=== PATIENT | female | born 1975 | race Caucasian/White ===

== ENCOUNTER → 2019-08-13 13:01 | Outpatient (BNVA) | payer MEDICARE, MEDICAID, SELFPAY | PROVIDERS: Family Provider Nurse Practitioner; Visit Provider Nurse Practitioner | DX: I10 Essential (primary) hypertension (principal) | CPT/HCPCS: 80053; 84443; 84481; 85025 ==

== ENCOUNTER → 2019-09-09 16:31 | Outpatient (BNVA) | payer MEDICARE, MEDICAID, SELFPAY | PROVIDERS: Family Provider Nurse Practitioner; Visit Provider Nurse Practitioner | DX: R05 Cough (principal); R07.89 Other chest pain | CPT/HCPCS: 71046; 85025; 87804 ==

== ENCOUNTER 2019-12-10 05:11 | Emergency (ER) | payer MEDICARE, MEDICAID, SELFPAY ==
[2019-12-10 05:11] VITALS: BMI 11.6
[2019-12-10 05:17] VITALS: BP 120/74; PULSE 87; RESP 18; TEMP 36.7; O2SAT 97
--- NOTE | 2019-12-10 05:18 | W.ED.FALL ---
Documented by User: Hal Mukherjee MD 12/10/19 05:46 HPI - Fall General: Chief Complaint: Fall Stated Complaint: back pain post fall Time Seen by Provider: 12/10/19 05:15 Source: patient and EMS Mode of arrival: EMS Limitations: no limitations History of Present Illness: HPI Narrative: 44-year-old female who tripped and fell roughly 3 hours ago. She states she fell straight onto her back and has had lower back pain and thoracic back pain since the fall. She states the pain is sharp in nature is worsened throughout the night. She states it is much worse when she tries to ambulate. She states her pain is currently a 7 out of 10. She did receive fentanyl in route complaint: fall Onset (ago): hour(s) Fall from: standing Fall witnessed: no Place fall occurred: home Loss of consciousness: None Symptoms prior to fall: none Location of injury: back Associated symptoms-after fall: Denies abdominal pain, chest pain or headache(s) Review of Systems Const: Denies: fever(s), chills, body aches or change in appetite Eyes: Denies: blurry vision or eye discomfort ENMT: Denies: throat pain or dental pain Card: Denies: chest pain Resp: Denies: dyspnea GI: Denies: abdominal pain, nausea, vomiting or diarrhea : Denies: dysuria Musc: Reports: back pain Skin/Breast: Denies: rash Neuro: Denies: headache(s) Psych: Denies: depression Raudel/Lymph: Denies: easy bruising All/Imm: Denies: urticaria PFSH ED PFSH: Medical History Alcohol dependence, daily use 1-2 beer daily Anorexia Anxiety and depression Chronic episodic atrial fibrillation Patient is not on oral anticoagulant because of the GI bleed. COPD (chronic obstructive pulmonary disease) Dyslipidemia Essential (primary) hypertension High risk medication use Non-ischemic cardiomyopathy Smoking addiction Underweight Vitamin D deficiency Surgical History History of colonoscopy 2017 Family History Mother Cancer Brother Heart disease Grandmother Diabetes Social History Smoking and tobacco status: current every day smoker Second hand smoke exposure: Yes Smoking risk assessment/counseling performed?: Yes Alcohol intake: current Alcohol intake frequency: 3 or more drinks per day Alcohol type: beer Desire information about alcohol rehabilitation?: No Counseling given: Yes Desire information about substance/drug rehabilitation?: No Counseling given: No Caregiver/support person: No Lives independently: Yes Marital status: Single Number of children: 0 Number of grandchildren: 0 service: No Current occupational status: unemployed Pets and animals: Yes Pets & animals: dog(s) History of recent travel: No Current gender identity: Female Physical Exam Const: COMMON NORMALS: no acute distress, patient oriented x3 and healthy appearing HENMT: COMMON NORMALS: normocephalic and atraumatic HEAD & SCALP: normocephalic and atraumatic Eye: COMMON NORMALS: Equal, round and reactive pupils present and EOMs intact bilaterally PUPIL: Yes Equal, round and reactive pupils present Neck/C-Spine: COMMON NORMALS: full ROM and supple Chest: COMMONS NORMALS: normal inspection of the chest and normal palpation of entire chest wall Resp: COMMON NORMALS: normal respiratory effort, No retractions, No use of accessory muscles and clear to auscultation bilaterally AUSCULTATION: clear to auscultation bilaterally Cardio: COMMON NORMALS: regular rate, regular rhythm and No murmurs present (Cardio) RATE: regular rate RHYTHM: regular rhythm GI: COMMON NORMALS: Normal to inspection, nondistended, normoactive bowel sounds present, Soft to palpation, non-tender and no masses PALPATION: Yes Soft to palpation Back/Pelvis: OTHER: Tender over thoracic and lumbar spine patient was able ambulate without problems Extremity: COMMON NORMALS: normal to inspection and full ROM Neuro: COMMON NORMALS: patient oriented x3, moves all extremities and no focal motor deficits Psych: COMMON NORMALS: mental status grossly normal, Normal thought process present and cooperative THOUGHT PROCESS: Normal thought process present Skin: COMMON NORMALS: no rashes or lesions noted and no wounds GENERAL SKIN EXAM: no rashes or lesions noted Course Vital Signs: Vital signs: Vital Signs Temperature 98.1 F 12/10/19 05:17 Pulse Rate 90 12/10/19 11:16 Respiratory Rate 18 12/10/19 06:56 Blood Pressure 140/107 12/10/19 11:16 Pulse Oximetry 94 12/10/19 11:16 MDM - Fall MDM Narrative: Medical decision making narrative: Nunu presents here with lumbar and thoracic pain from a fall. Patient is quite tender on exam. She has no neurologic findings and no numbness. Patient's care turned over to Dr. Ayala to follow CT scan of her lumbar and thoracic spine. She had no head injury and no other injuries with the fall. Discharge Plan Discharge Patient Disposition: Home, Self-Care Clinical Impression: Compression fracture of thoracic vertebra Qualifiers: Encounter type: initial encounter Thoracic vertebra fracture level: T12 Qualified Code(s): S22.080A - Wedge compression fracture of T11-T12 vertebra, initial encounter for closed fracture Condition: Stable Prescriptions: New hydrocodone-acetaminophen 5-325 mg tablet 1 tab PO Q6H PRN (Reason: pain) Qty: 20 RF: 0 No Action alendronate [Fosamax] 70 mg tablet 70 mg PO .weekly Qty: 4 RF: 2 aspirin 81 mg tablet,delayed release (DR/EC) 81 mg PO BID Qty: 30 RF: 2 atorvastatin [Lipitor] 10 mg tablet 10 mg PO DAILY Qty: 30 RF: 2 calcium carbonate-vitamin D3 [Os-Vitor 500 + D3] 500 mg(1,250mg) -200 unit tablet 1 tab PO BID Qty: 60 RF: 2 cyanocobalamin (vitamin B-12) [Vitamin B-12] 1,000 mcg tablet 1,000 mcg PO DAILY Qty: 30 RF: 2 famotidine [Pepcid] 20 mg tablet 20 mg PO BID Qty: 60 RF: 2 Flovent HFA 110 mcg/actuation HFA aerosol inhaler 2 puff INHALATION Q12H Qty: 12 RF: 2 folic acid 1 mg tablet 1 mg PO DAILY Qty: 30 RF: 2 liothyronine [Cytomel] 5 mcg tablet 10 mcg PO DAILY Qty: 60 RF: 2 lisinopril 2.5 mg tablet 2.5 mg PO DAILY Qty: 30 RF: 2 magnesium oxide 400 mg magnesium tablet 400 mg PO BID Qty: 60 RF: 2 cefuroxime axetil 500 mg tablet 500 mg PO BID Qty: 20 RF: 0 Robitussin Long-Acting 1-7.5 mg/5 mL liquid 5 ml PO .every 6 hours Qty: 118 RF: 0 albuterol sulfate 2.5 mg /3 mL (0.083 %) solution for nebulization 2.5 mg INHALATION Q6H PRN (Reason: shortness of breath or wheezing) Qty: 180 RF: 0 levalbuterol tartrate [Xopenex HFA] 45 mcg/actuation HFA aerosol inhaler 2 inh INHALATION Q6H PRN (Reason: shortness of breath or wheezing) Qty: 15 RF: 0 amiodarone 200 mg tablet 100 mg PO DAILY Qty: 45 RF: 3 venlafaxine [Effexor XR] 75 mg capsule,extended release 24hr 75 mg PO DAILY Qty: 30 RF: 0 carvedilol 3.125 mg tablet 3.125 mg PO BID Qty: 60 RF: 3 Referrals: Yudy Lozoya FNP-C [Family Provider] - Mitesh Marrero [Referring] - 7-10 days Discharge Diet: Usual diet Discharge Activity: Limit activity as instructed Patient Instructions: Vertebral Compression Fracture (ED) Activity Restrictions/Additional Instructions: Use the brace as instructed by physical therapy. Use the walker whenever you are up ambulating so that you do not fall. If you are unable to tolerate the pain or if you are having difficulty getting around please return to the ED to be admitted. Follow-up with Dr. Marrero in 1 to 2 weeks for further evaluation and treatment. 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 COPD (chronic obstructive pulmonary disease) Dyslipidemia Essential (primary) hypertension High risk medication use Non-ischemic cardiomyopathy Smoking addiction Underweight Vitamin D deficiency Surgical History History of colonoscopy 2016 Family History Mother Cancer Brother Heart disease Grandmother Diabetes Social History Smoking and tobacco status: current every day smoker Second hand smoke exposure: Yes Smoking risk assessment/counseling performed?: Yes Alcohol intake: current Alcohol intake frequency: 3 or more drinks per day Alcohol type: beer Desire information about alcohol rehabilitation?: No Counseling given: Yes Desire information about substance/drug rehabilitation?: No Counseling given: No Caregiver/support person: No Lives independently: Yes Marital status: Single Number of children: 0 Number of grandchildren: 0 service: No Current occupational status: unemployed Pets and animals: Yes Pets & animals: dog(s) History of recent travel: No Current gender identity: Female Course ED course: Assumed care of this patient at shift change. She has had a CT which shows a burst fracture with some displacement of a bone fragment in the thoracic spine. I reevaluated her and she is continuing to have pain in that area. She does not ever think she has been told that she had a compression fracture in her back before. The dose of morphine she got earlier she said did help but it had worn off and she requested more pain medicine. She is neurologically intact. She would like to be able to go home if possible. I am paging neurosurgery at [facility] for recommendations on management, whether she needs a brace or any further evaluation or intervention. Reevaluation(s): Reevaluation #1: I spoke with Dr. Marrero at [facility]. He was okay with her getting a TLSO brace here and going home as long as she can ambulate without significant pain. He was willing to admit her at [facility] if she wanted to be admitted or if we are not able to control her pain. Discussed this with the patient on several occasions and she preferred to go home but was willing to stay if necessary. We got her a TLSO brace as well as a walker due to her weakness and general instability. She was able to ambulate with a walker in the brace fairly well. I reassessed her prior to discharge and she still wanted to go home. Dr. Marrero said he would like to see her in the outpatient clinic for follow-up to discuss jail management. I gave her a prescription for some hydrocodone for home. She understands that if she cannot tolerate the pain at home she should come back. Vital Signs: Vital signs: Vital Signs Temperature 98.1 F 12/10/19 05:17 Pulse Rate 90 12/10/19 11:16 Respiratory Rate 18 12/10/19 06:56 Blood Pressure 140/107 12/10/19 11:16 Pulse Oximetry 94 12/10/19 11:16 Discharge Plan Discharge Patient Disposition: Home, Self-Care Clinical Impression: Compression fracture of thoracic vertebra Qualifiers: Encounter type: initial encounter Thoracic vertebra fracture level: T12 Qualified Code(s): S22.080A - Wedge compression fracture of T11-T12 vertebra, initial encounter for closed fracture Condition: Stable Prescriptions: New hydrocodone-acetaminophen 5-325 mg tablet 1 tab PO Q6H PRN (Reason: pain) Qty: 20 RF: 0 No Action alendronate [Fosamax] 70 mg tablet 70 mg PO .weekly Qty: 4 RF: 2 aspirin 81 mg tablet,delayed release (DR/EC) 81 mg PO BID Qty: 30 RF: 2 atorvastatin [Lipitor] 10 mg tablet 10 mg PO DAILY Qty: 30 RF: 2 calcium carbonate-vitamin D3 [Os-Vitor 500 + D3] 500 mg(1,250mg) -200 unit tablet 1 tab PO BID Qty: 60 RF: 2 cyanocobalamin (vitamin B-12) [Vitamin B-12] 1,000 mcg tablet 1,000 mcg PO DAILY Qty: 30 RF: 2 famotidine [Pepcid] 20 mg tablet 20 mg PO BID Qty: 60 RF: 2 Flovent HFA 110 mcg/actuation HFA aerosol inhaler 2 puff INHALATION Q12H Qty: 12 RF: 2 folic acid 1 mg tablet 1 mg PO DAILY Qty: 30 RF: 2 liothyronine [Cytomel] 5 mcg tablet 10 mcg PO DAILY Qty: 60 RF: 2 lisinopril 2.5 mg tablet 2.5 mg PO DAILY Qty: 30 RF: 2 magnesium oxide 400 mg magnesium tablet 400 mg PO BID Qty: 60 RF: 2 cefuroxime axetil 500 mg tablet 500 mg PO BID Qty: 20 RF: 0 Robitussin Long-Acting 1-7.5 mg/5 mL liquid 5 ml PO .every 6 hours Qty: 118 RF: 0 albuterol sulfate 2.5 mg /3 mL (0.083 %) solution for nebulization 2.5 mg INHALATION Q6H PRN (Reason: shortness of breath or wheezing) Qty: 180 RF: 0 levalbuterol tartrate [Xopenex HFA] 45 mcg/actuation HFA aerosol inhaler 2 inh INHALATION Q6H PRN (Reason: shortness of breath or wheezing) Qty: 15 RF: 0 amiodarone 200 mg tablet 100 mg PO DAILY Qty: 45 RF: 3 venlafaxine [Effexor XR] 75 mg capsule,extended release 24hr 75 mg PO DAILY Qty: 30 RF: 0 carvedilol 3.125 mg tablet 3.125 mg PO BID Qty: 60 RF: 3 Referrals: Yudy Lozoya, LAURO-C [Family Provider] - Mitesh Marrero [Referring] - 7-10 days Discharge Diet: Usual diet Discharge Activity: Limit activity as instructed Patient Instructions: Vertebral Compression Fracture (ED) Activity Restrictions/Additional Instructions: Use the brace as instructed by physical therapy. Use the walker whenever you are up ambulating so that you do not fall. If you are unable to tolerate the pain or if you are having difficulty getting around please return to the ED to be admitted. Follow-up with Dr. Marrero in 1 to 2 weeks for further evaluation and treatment. 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
--- NOTE | 2019-12-10 05:42 | CTR_ITS ---
PROCEDURE INFORMATION: Exam: CT Lumbar Spine Without Contrast Exam date and time: 12/10/2019 6:25 AM Age: 44 years old Clinical indication: Injury or trauma; Initial encounter; Blunt trauma (contusions or hematomas); Patient HX: Fall last night. C/O back pain TECHNIQUE: Imaging protocol: Computed tomography images of the lumbar spine without contrast. Radiation optimization: All CT scans at this facility use at least one of these dose optimization techniques: automated exposure control; mA and/or kV adjustment per patient size (includes targeted exams where dose is matched to clinical indication); or iterative reconstruction. COMPARISON: No relevant prior studies available. RADIATION DOSE METRICS: Total DLP: 719.56 mGy-cm FINDINGS: Vertebrae: No spondylolisthesis No pars defect. No fracture. Compression fracture T12. Displaced fragment superiorly of approximately 5-[address] thoracic spine. Discs/Spinal canal/Neural foramina: degenerative disc disease reflected as a decrease in disc space height and anterior endplate osteophytosis. Stomach and bowel: Question mildly thickened large bowel. Consider CT if indicated. Soft tissues: Unremarkable. CT/CT lumbar spine wo con* [id number] IMPRESSION: 1. Diffuse degenerative disc disease. No lumbar spine fracture. 2. Compression fracture T12. Displaced fragment superiorly of approximately 5-[address] thoracic spine. 3. Question mildly thickened large bowel. Consider CT if indicated. Radiation Dose CTDIVOL = (mGy): DLP = 719.56 (mGy-cm)
--- NOTE | 2019-12-10 05:42 | CTR_ITS ---
PROCEDURE INFORMATION: Exam: CT Thoracic Spine Without Contrast Exam date and time: 12/10/2019 5:43 AM Age: 44 years old Clinical indication: Injury or trauma; Initial encounter; Blunt trauma (contusions or hematomas); Patient HX: Fall last night. C/O severe back pain TECHNIQUE: Imaging protocol: Computed tomography images of the thoracic spine without contrast. Radiation optimization: All CT scans at this facility use at least one of these dose optimization techniques: automated exposure control; mA and/or kV adjustment per patient size (includes targeted exams where dose is matched to clinical indication); or iterative reconstruction. COMPARISON: No relevant prior studies available. RADIATION DOSE METRICS: Total DLP: 863.41 mGy-cm FINDINGS: Vertebrae: The alignment is normal. No subluxation-no perched or jumped facets. The facets are without acute process. Burst fracture involving T12 with retropulsed fragment of approximately 5-6 mm superiorly. Discs/Spinal canal/Neural foramina: Degenerative changes, mild, throughout much of the thoracic spine CT/CT thoracic spin wo con* [id number] IMPRESSION: Burst fracture involving T12 with retropulsed fragment of approximately 5-6 mm superiorly. Radiation Dose CTDIVOL = (mGy): DLP = 863.41 (mGy-cm)
[2019-12-10 06:15] VITALS: RESP 18
[2019-12-10] MEDS: morphine 4 mg/mL SDV 1 mL IVP ×2 (06:15→07:53)
[2019-12-10 06:56] VITALS: BP 128/78; PULSE 102; RESP 18; O2SAT 94
[2019-12-10 07:55] VITALS: BP 120/88; PULSE 97; O2SAT 98
--- NOTE | 2019-12-10 08:57 | PC.NURSE ---
physical therapy in room to walk pt with TLSO brace
[2019-12-10 10:03] VITALS: BP 130/86; PULSE 95; O2SAT 96
--- NOTE | 2019-12-10 10:03 | DCPLANNER ---
procurement services manager was asked to arrange for patient to get a walker to take home. procurement services manager spoke with patient about which DME company that she would like to use. Patient stated that she would like to use [facility], catalytic case operator had patient sign the Patient Choice letter. procurement services manager put that in the patients chart, for it to be scanned in. procurement services manager faxed the prescription to [facility], they will bring a walker to patient in the ED.
[2019-12-10] MEDS: HYDROcodone-acetaminophen 5-325 mg Tablet 1 TAB PO (10:46)
--- NOTE | 2019-12-10 11:00 | PC.NURSE ---
[facility] here to help Pt with walker instructions/education
[2019-12-10 11:16] VITALS: BP 140/107; PULSE 90; O2SAT 94
--- NOTE | 2019-12-10 11:16 | PC.NURSE ---
iv removed from left AC space. tip intact. pressure dressing applied.
== END 2019-12-10 11:16 | disposition home or self-care (01) ==
PROVIDERS: Emergency Provider Emergency Medicine; Family Provider Nurse Practitioner
DX: S22.080A Wedge compression fracture of T11-T12 vertebra, initial encounter for closed fracture (principal); W01.0XXA Fall on same level from slipping, tripping and stumbling without subsequent striking against object, initial encounter; Z79.82 Long term (current) use of aspirin; J44.9 Chronic obstructive pulmonary disease, unspecified; E78.5 Hyperlipidemia, unspecified; I10 Essential (primary) hypertension; F17.210 Nicotine dependence, cigarettes, uncomplicated
CPT/HCPCS: 12345; 72128; 72131; 97760; 99282; 99283; J2270; L0460

== ENCOUNTER → 2019-12-21 10:52 | Outpatient (BNVA) | payer MEDICARE, MEDICAID, SELFPAY | PROVIDERS: Family Provider Nurse Practitioner; Visit Provider Nurse Practitioner | DX: R63.6 Underweight (principal); I12.9 Hypertensive chronic kidney disease with stage 1 through stage 4 chronic kidney disease, or unspecified chronic kidney disease; N18.2 Chronic kidney disease, stage 2 (mild); S22.080A Wedge compression fracture of T11-T12 vertebra, initial encounter for closed fracture; R63.0 Anorexia; J44.9 Chronic obstructive pulmonary disease, unspecified; F41.9 Anxiety disorder, unspecified; F32.9 Major depressive disorder, single episode, unspecified; E55.9 Vitamin D deficiency, unspecified; E78.5 Hyperlipidemia, unspecified | CPT/HCPCS: 80061; 80069; 82044; 84439; 84443; 84481; 85025 ==

== ENCOUNTER 2020-01-11 12:23 | Outpatient (CLI) | payer MEDICARE, MEDICAID, SELFPAY ==
--- NOTE | 2020-01-11 15:15 | CT_ITS ---
WS: [id number] CT THORACIC SPINE TECHNIQUE: Noncontrast CT of the thoracic spine with coronal and sagittal reformatted images. CLINICAL INFORMATION: T12 fracture COMPARISON: None. DLP: 1012.[address] scans at [facility] use at least one of these dose optimization techniques: automat ed exposure control; mA and/or kV adjustment per patient size (includes targeted exams where dose is matched to clinical indication); or iterative reconstruction. FINDINGS: Again seen is the burst fracture involving the T12 vertebral body with posterior retropulsion measuri ng 5 to 6 mm. This results in mild central canal stenosis. Loss of approximately 50% vertebral body h eight slightly progressed. Compression fracture otherwise not significantly changed compared to previ ous. Fracture clefts are visualized in the mid and anterior endplates. Pedicles appear intact. Moderate thoracic kyphosis. No new compression fractures. A few Schmorl's nodes with chronic anterior wedging in the mid thoracic spine. No other significant interval changes. CT/CT thoracic spin wo con* [id number] IMPRESSION: 1. Slight progression of the T12 burst compression fracture with loss of appro ximately 50% vertebral body height. Slightly more compression today with fractu re clefts visualized in the mid and anterior aspects. 2. Mild retropulsion posterior superior cortex is unchanged with mild central canal stenosis. 3. Vacuum disc phenomenon T11-T12 and T12-L1. 4. Moderate thoracic kyphosis. 5. No other significant changes.
== END 2020-01-11 12:24 | disposition home or self-care (01) ==
LOC: RADWPI 12:26
PROVIDERS: Family Provider Nurse Practitioner; PCP Nurse Practitioner; Visit Provider Licensed Practical Nurse
DX: M54.9 Dorsalgia, unspecified (principal); S22.080A Wedge compression fracture of T11-T12 vertebra, initial encounter for closed fracture; S22.081A Stable burst fracture of T11-T12 vertebra, initial encounter for closed fracture; I48.20 Chronic atrial fibrillation, unspecified; I42.8 Other cardiomyopathies; F41.9 Anxiety disorder, unspecified; F32.9 Major depressive disorder, single episode, unspecified; X58.XXXA Exposure to other specified factors, initial encounter; F17.210 Nicotine dependence, cigarettes, uncomplicated; Z79.891 Long term (current) use of opiate analgesic
CPT/HCPCS: 72128; 99204

== ENCOUNTER 2020-02-08 09:50 | Outpatient (CLI) | payer MEDICARE, MEDICAID, SELFPAY ==
--- NOTE | 2020-02-08 10:15 | CT_ITS ---
WS: [id number] CT THORACIC SPINE TECHNIQUE: Noncontrast CT of the thoracic spine with coronal and sagittal reformatted images. CLINICAL INFORMATION: Thoracic fracture COMPARISON: CT 7 01/11/2020 and 12/10/2019 DLP: 1200.[address] scans at [facility] use at least one of these dose optimization techniques: automat ed exposure control; mA and/or kV adjustment per patient size (includes targeted exams where dose is matched to clinical indication); or iterative reconstruction. FINDINGS: Moderate thoracic kyphosis. Again seen is the burst fracture involving the T12 vertebral body with po sterior retropulsion measuring 5 to 6 mm. This results in mild central canal stenosis. Loss of approx imately 50% vertebral body height is unchanged. Compression fracture otherwise not significantly powers ged compared to previous. Fracture clefts are visualized in the mid and anterior endplates. Pedicles appear intact. No new comp ression fractures. A few Schmorl's nodes with chronic anterior wedging in the mid thoracic spine. CT/CT thoracic spin wo con* [id number] IMPRESSION: 1. Previously described T12 burst compression fracture with loss of approximat lobito 50% vertebral body height is unchanged. 2. Mild retropulsion posterior superior cortex is unchanged with mild central canal stenosis. 3. Vacuum disc phenomenon T11-T12 and T12-L1. 4. No other significant changes from previous.
== END 2020-02-08 09:51 | disposition home or self-care (01) ==
LOC: RADWPI 09:53
PROVIDERS: Family Provider Nurse Practitioner; PCP Nurse Practitioner; Visit Provider Licensed Practical Nurse
DX: M51.17 Intervertebral disc disorders with radiculopathy, lumbosacral region (principal); S22.081A Stable burst fracture of T11-T12 vertebra, initial encounter for closed fracture; S22.080A Wedge compression fracture of T11-T12 vertebra, initial encounter for closed fracture; X58.XXXA Exposure to other specified factors, initial encounter; M54.9 Dorsalgia, unspecified; F17.210 Nicotine dependence, cigarettes, uncomplicated; Z79.891 Long term (current) use of opiate analgesic
CPT/HCPCS: 72128; 99213

== ENCOUNTER → 2020-02-15 10:04 | Outpatient (BNVA) | payer MEDICARE, MEDICAID, SELFPAY | PROVIDERS: Family Provider Nurse Practitioner; PCP Nurse Practitioner; Visit Provider Licensed Practical Nurse | DX: S22.081A Stable burst fracture of T11-T12 vertebra, initial encounter for closed fracture (principal); X58.XXXA Exposure to other specified factors, initial encounter; F17.210 Nicotine dependence, cigarettes, uncomplicated | CPT/HCPCS: 99214 ==

== ENCOUNTER → 2020-03-09 09:23 | Outpatient (BNVA) | payer MEDICARE, MEDICAID, SELFPAY | PROVIDERS: Family Provider Nurse Practitioner; PCP Nurse Practitioner; Visit Provider Anesthesiology Pain Medicine | DX: M51.17 Intervertebral disc disorders with radiculopathy, lumbosacral region (principal); S22.081A Stable burst fracture of T11-T12 vertebra, initial encounter for closed fracture; X58.XXXA Exposure to other specified factors, initial encounter; M54.9 Dorsalgia, unspecified; I48.20 Chronic atrial fibrillation, unspecified; I42.8 Other cardiomyopathies; F41.9 Anxiety disorder, unspecified; F32.9 Major depressive disorder, single episode, unspecified; R63.0 Anorexia; R63.6 Underweight; J43.9 Emphysema, unspecified; F17.210 Nicotine dependence, cigarettes, uncomplicated | CPT/HCPCS: 99212; 99214 ==

== ENCOUNTER → 2020-04-05 10:22 | Outpatient (BNVA) | payer MEDICARE, MEDICAID, SELFPAY | PROVIDERS: Family Provider Nurse Practitioner; PCP Nurse Practitioner; Visit Provider Nurse Practitioner | DX: R63.0 Anorexia (principal); I10 Essential (primary) hypertension; K12.2 Cellulitis and abscess of mouth; F41.9 Anxiety disorder, unspecified; J43.9 Emphysema, unspecified; F32.9 Major depressive disorder, single episode, unspecified; K21.9 Gastro-esophageal reflux disease without esophagitis; E55.9 Vitamin D deficiency, unspecified; R79.89 Other specified abnormal findings of blood chemistry | CPT/HCPCS: 80053; 81000; 82306; 82607; 84443; 85025 ==

== ENCOUNTER 2020-04-10 11:00 | Outpatient (CLI) | payer MEDICARE, MEDICAID, SELFPAY ==
--- NOTE | 2020-04-10 11:15 | CT_ITS ---
WS: [id number] CT scan of the thoracic spine. Additional two-dimensional coronal and sagittal reconstruction was per formed. 04/10/2020 Clinical Data: Fracture Comparison: CT thoracic spine, 02/08/2020. DLP: 987.[address] scans at [facility] use at least one of these dose optimization techniques: automat ed exposure control; mA and/or kV adjustment per patient size (includes targeted exams where dose is matched to clinical indication); or iterative reconstruction. Findings: The compression fracture of T12 with loss of greater than 50% of the central vertebral body height at is again noted. The posterior superior portion shows retropulsion of 0.6 cm unchanged. No new compre ssion fractures are seen. Osteoporosis of all the vertebral bodies is present. There is degenerative disc change at T11-T12, T12-L1 and T8-T9. CT/CT thoracic spin wo con* [id number] Impression: 1. No change in T12 compression fracture. 2. 0.6 cm retropulsion of the posterior superior T12 cortex unchanged.
== END 2020-04-10 11:01 | disposition home or self-care (01) ==
LOC: RADWPI 11:04
PROVIDERS: Family Provider Nurse Practitioner; PCP Nurse Practitioner; Visit Provider Licensed Practical Nurse
DX: S22.081A Stable burst fracture of T11-T12 vertebra, initial encounter for closed fracture (principal); X58.XXXA Exposure to other specified factors, initial encounter
CPT/HCPCS: 72128

== ENCOUNTER → 2020-04-19 09:19 | Outpatient (BNVA) | payer MEDICARE, MEDICAID, SELFPAY | PROVIDERS: Family Provider Nurse Practitioner; PCP Nurse Practitioner; Visit Provider Licensed Practical Nurse | DX: S22.081A Stable burst fracture of T11-T12 vertebra, initial encounter for closed fracture (principal); X58.XXXA Exposure to other specified factors, initial encounter | CPT/HCPCS: 99213 ==

== ENCOUNTER → 2020-05-31 11:00 | Outpatient (BNVA) | payer MEDICARE, MEDICAID, SELFPAY | PROVIDERS: Family Provider Nurse Practitioner; PCP Nurse Practitioner; Visit Provider Nurse Practitioner | DX: Z20.828 Contact with and (suspected) exposure to other viral communicable diseases (principal); J43.9 Emphysema, unspecified | CPT/HCPCS: 85025; 87635 ==

== ENCOUNTER 2020-06-12 08:06 | Outpatient (CLI) | payer MEDICARE, MEDICAID, SELFPAY ==
--- NOTE | 2020-06-12 08:00 | CT_ITS ---
WS: [id number] CT THORACIC SPINE HISTORY: Thoracic fracture TECHNIQUE: Contiguous 2.5 mm axial images are reviewed to thoracic spine. Images are reformatted in s agittal and coronal planes. All CT scans at [facility] use at least one of these dose opt imization techniques: automated exposure control; mA and/or kV adjustment per patient size (includes targeted exams where dose is matched to clinical indication); or iterative reconstruction. DLP: 619.49 mGy.cm COMPARISON: 04/10/2020 Mild increase in thoracic kyphosis and osteopenia. Again noted is the 50% T12 burst fracture with ret ropulsion of the posterior superior endplate by 4.7 mm. No progression of a fracture or retropulsion. Degenerative air at the T11-12 and T12-L1 disc spaces. Single sclerosis throughout the T12 fracture. Mild to moderate degenerative disc disease and spondylosis throughout the thoracic spine. There is ve ry mild anterior wedging of T6, T7 and T8. No retropulsion. Retropulsion of the posterior T12 vertebral body causing mild compression upon the ventral thecal sac and encroachment into the lateral recesses. CT/CT thoracic spin wo con* [id number] IMPRESSION: 1. Stable T12 burst fracture with retropulsion of the posterior superior endpl ate by 4.7 mm. 2. Mild narrowing and encroachment upon the central canal at T12 with mild akanksha rowing of the lateral recesses also. No change or progression.
== END 2020-06-12 08:07 | disposition home or self-care (01) ==
LOC: CT 08:11
PROVIDERS: PCP Nurse Practitioner; Visit Provider Licensed Practical Nurse
DX: S22.081A Stable burst fracture of T11-T12 vertebra, initial encounter for closed fracture (principal); X58.XXXA Exposure to other specified factors, initial encounter
CPT/HCPCS: 72128

== ENCOUNTER → 2020-06-14 09:41 | Outpatient (BNVA) | payer MEDICARE, MEDICAID, SELFPAY | PROVIDERS: PCP Nurse Practitioner; Visit Provider Licensed Practical Nurse | DX: S22.081A Stable burst fracture of T11-T12 vertebra, initial encounter for closed fracture (principal); X58.XXXA Exposure to other specified factors, initial encounter; F17.210 Nicotine dependence, cigarettes, uncomplicated | CPT/HCPCS: 99213 ==

== ENCOUNTER 2020-08-16 13:24 | Emergency (ER) | payer MEDICARE, MEDICAID, SELFPAY ==
[2020-08-16] VITALS (10 sets, daily range): BP systolic 143–172; BP diastolic 102–115; PULSE 77–103; RESP 16–26; TEMP 36.6; O2SAT 96–100; BMI 11.1
--- NOTE | 2020-08-16 13:40 | ECG_ITS ---
[facility] Test Date: 2020-08-16 Pat Name: Nunu Mccoy Department: Room: Gender: Female Mechanical Assembler: : 1975 Requested By: Abhi José Order Number: [id number] Hassan MD: Alma Bueno M.D. Measurements Intervals [place] Rate: 83 P: 76 MN: 144 QRS: -54 QRSD: 116 T: 81 QT: 436 QTc: 513 Interpretive Statements SINUS RHYTHM MARKED LEFT AXIS DEVIATION [QRS AXIS < -30] MODERATE INTRAVENTRICULAR CONDUCTION DELAY [105+ ms QRS DURATION, 80+ ms Q/S IN V1/V2, NO Q AND 60+ ms R IN I/aVL/V5/V6] PROLONGED QT INTERVAL WARNING: DATA QUALITY MAY AFFECT INTERPRETATION Compared to ECG 11/09/2016 17:06:56 Left-axis deviation now present Intraventricular conduction delay now present Prolonged QT interval now present Left anterior fascicular block no longer present Myocardial infarct finding no longer present Electronically Signed On 08-16-2020 19:28:01 MEAT TEAM LEAD by Alma Bueno M.D. [email or web address]
--- NOTE | 2020-08-16 13:40 | XR_ITS ---
WS: [id number] Portable AP upright chest, 08/16/2020 Clinical Data: cp Comparison: PA and lateral chest, 09/09/2019. Findings: No nodules, masses or effusions are seen. The heart is normal. The pulmonary vascularity is not increased. No pneumonia or pneumothorax is seen. The diaphragms are flattened. The T12 compressi on fracture has not changed its AP appearance. There is an old healed fracture of the neck of the le ft humerus. There are monitor leads on the abdominal wall. XR/XR chest 1V portable [id number] Impression: Hyperinflation.
--- NOTE | 2020-08-16 13:43 | ED_ITS ---
HPI - Chest Pain General: Chief Complaint: Chest Pain Stated Complaint: Elevated BP Time Seen by Provider: 08/16/20 13:34 History of Present Illness: HPI narrative: The patient is a 44-year-old female who is a smoker with COPD, hypertension, history of stroke and history of PA who comes to the ER complaining of left-sided chest pain under her left breast. She says at home her blood pressure was 170 systolic and her primary care physician told her to come to the ER to get evaluated. She says in the ER she is having no chest pain. The pain is sharp and started at 1030 this morning but has now resolved. She did not know she has had a previous PA, her primary care physician told her at some point she thinks. Pertinent past history: prior PA Onset: during rest Pain radiation: none Severity: mild Quality: sharp Exacerbating factors: nothing Associated symptoms: Reports no associated symptoms; Deny abdominal pain, dyspnea or palpitations Treatment prior to arrival: none Review of Systems General: Reports: 10 or more systems reviewed and unremarkable except in HPI and below Const: Denies: fatigue Eyes: Denies: change in vision, blurry vision or eye redness ENMT: Denies: throat pain, swelling of lips/tongue, ear or mastoid pain or nasal congestion Card: Reports: chest pain; Denies: palpitations, irregular heart rhythm, edema, dyspnea on exertion or orthopnea Resp: Denies: dyspnea, productive cough or non-productive cough GI: Denies: abdominal pain, diarrhea or GI cramping : Denies: flank pain, difficulty voiding, urinary frequency or urinary urgency Musc: Denies: neck pain, back pain, extremity pain, joint pain, joint redness, limited range of motion or muscle weakness Skin/Breast: Denies: rash, pruritus, erythema, skin pain or skin tenderness Neuro: Denies: headache(s), numbness in extremities, weakness in extremities, sensory changes, difficulty walking, dizziness, confusion or Slurred speech present Psych: Denies: anxiety or depression Endo: Denies: polyuria All/Imm: Denies: urticaria, throat swelling or tongue swelling [facility] ED PFSH: Medical History (Updated 08/16/20 @ 19:01 by Abhi José MD) Acid reflux Alcohol dependence, daily use 1-2 beer daily Anorexia Anxiety and depression Burst fracture of T12 vertebra Chronic episodic atrial fibrillation Patient is not on oral anticoagulant because of the GI bleed. COPD (chronic obstructive pulmonary disease) Dyslipidemia Essential (primary) hypertension High risk medication use Low serum triiodothyronine (T3) Non-ischemic cardiomyopathy Personal history of nicotine dependence Smoking addiction Underweight Vitamin D deficiency Surgical History History of colonoscopy 2016 History of esophagogastroduodenoscopy (EGD) (~2017) Family History Mother Cancer Brother Heart disease Grandmother Diabetes Social History Smoking and tobacco status: current every day smoker cigarettes Smoking risk assessment/counseling performed?: Yes Alcohol intake: current Alcohol intake frequency: holidays/special occasions only Household members: family Marital status: Single Current occupational status: unemployed History of recent travel: No Physical Exam Const: COMMON NORMALS: no acute distress, average body habitus, patient oriented x3, no limitations, healthy appearing, alert and well nourished GENERAL APPEARANCE: cooperative, comfortable, well kempt and well developed ORIENTATION/CONSCIOUSNESS: Yes awake, Yes oriented to person, Yes oriented to place and Yes oriented to time HENMT: COMMON NORMALS: normocephalic, external ears normal and Normal external nose present HEAD & SCALP: normal to inspection and normocephalic NOSE: Normal external nose present EXTERNAL EAR: Yes external ears normal MOUTH: Normal oral and palatal mucosa present THROAT: posterior oropharynx normal Eye: COMMON NORMALS: Equal, round and reactive pupils present and EOMs intact bilaterally GENERAL EYE: appearance normal, both eyes and all related structures PUPIL: Yes Equal, round and reactive pupils present Neck/C-Spine: COMMON NORMALS: full ROM, no lymphadenopathy, no meningeal signs and no JVD GENERAL: Yes normal visual inspection Lymph: LYMPHATIC: no lymphadenopathy noted Chest: COMMONS NORMALS: normal inspection of the chest and normal palpation of entire chest wall Resp: COMMON NORMALS: normal respiratory effort, No retractions, No use of accessory muscles, clear to auscultation bilaterally and percussion normal EFFORT & INSPECTION: Yes able to speak in complete sentences AUSCULTATION: clear to auscultation bilaterally PERCUSSION: percussion normal Cardio: COMMON NORMALS: no JVD, regular rate, regular rhythm, S1 normal heart sound present, S2 normal heart sound present and Peripheral pulses 2+ throughout RATE: regular rate RHYTHM: regular rhythm HEART SOUNDS: S1 normal heart sound present and S2 normal heart sound present PERIPHERAL PULSES: Peripheral pulses 2+ throughout GI: COMMON NORMALS: Normal to inspection, nondistended, normoactive bowel sounds present, Soft to palpation, non-tender and no masses INSPECTION: Yes normal to inspection PALPATION: Yes Soft to palpation : COMMON NORMALS: Yes no CVA tenderness BLADDER/KIDNEY EXAM: Yes no CVA tenderness Back/Pelvis: COMMON NORMALS: no CVA tenderness, thoracic and lumbar spine normal to inspection, no thoracic nor lumbar tenderness and thoraco-lumbar ROM normal Extremity: COMMON NORMALS: normal to inspection, full ROM, capillary refill normal, no joint enlargement and no pedal edema GENERAL: Yes normal exam except as noted Neuro: COMMON NORMALS: patient oriented x3, CN's II-XII intact bilaterally, moves all extremities, no focal motor deficits, no sensory deficits noted and gait normal SENSORIUM/ORIENTATION: Yes alert, Yes oriented to person, Yes oriented to place and Yes oriented to time MENINGEAL SIGNS: Yes no meningeal signs Psych: COMMON NORMALS: mental status grossly normal, Normal thought process present, cooperative, normal affect and speech normal APPEARANCE: Yes well kempt ATTITUDE: Yes calm SPEECH: Yes normal speech THOUGHT PROCESS: Normal thought process present Skin: COMMON NORMALS: no rashes or lesions noted GENERAL SKIN EXAM: no rashes or lesions noted Course Vital Signs: Vital signs: Vital Signs Temperature 97.9 F 08/16/20 13:31 Pulse Rate 83 08/16/20 18:00 Respiratory Rate 20 H 08/16/20 18:00 Blood Pressure 150/104 08/16/20 18:00 Pulse Oximetry 98 08/16/20 18:00 MDM - Chest Pain MDM Narrative: Medical decision making narrative: The patient came in because her blood pressure was 170s at home and she was having chest pain. That has improved some. Recommended she go home and take her blood pressure medicines and discuss with her research geologist. She has 2 - EKGs and negative troponins. Her chest pain is unlikely cardiac to most likely musculoskeletal. Recommended Tylenol for pain and following up with her research geologist within 1 to 2 weeks. I have placed a case management referral to help her with this. ER with return of symptoms. Lab Data: Labs: Lab Results 08/16/20 08/16/20 08/16/20 Range/Units 13:45 13:45 13:45 WBC 5.5 (4.0-10.0) 10^3/ uL RBC 3.34 L (4.1-5.3) 10^6/u L Hgb 10.7 L (11.5-15.3) g/dL Hct 32.1 L (37.0-47.0) % MCV 96.1 (81-99) fL MCH 32.0 (28.0-34.0) pg MCHC 33.3 (30.0-36.0) g/dL RDW 15.3 H (12.1-15.1) % Plt Count 271 (130-400) 10^3/c mm MPV 9.2 (7.4-10.4) fL Neut % (Auto) 52.0 % Lymph % (Auto) 37.5 % Woods % (Auto) 8.9 % Eos % (Auto) 0.7 % Baso % (Auto) 0.7 % Neut # (Auto) 2.85 (1.8-7.7) 10^3/u L Lymph # (Auto) 2.1 (0.8-4.8) 10^3/u L Woods # (Auto) 0.5 (0.2-0.9) 10^3/u L Eos # (Auto) 0.0 (0.0-0.8) 10^3/u L Baso # (Auto) 0.0 (0.0-0.1) 10^3/u L Nucleated RBC % (a uto) 0 % Nucleated RBCs # 0.0 /100WBC D-Dimer 0.54 (0-0.59) ug/mIFE U Sodium 136 (136-145) mmol/L Potassium 3.4 L (3.5-5.1) mmol/L Chloride 97 L (98-107) mmol/L Carbon Dioxide 29 (22-29) mmol/L Anion Gap 13.4 (5-19) BUN 5 L (6-20) mg/dL Creatinine 1.0 H (0.5-0.9) mg/dL GFR Calculation 60.0 L (90-130) mL/min Glucose 93 (65-115) mg/dL Calculated Osmolal ity 279 L (285-295) mOsm/k g Calcium 8.4 L (8.5-10.5) mg/dL Total Bilirubin 0.2 (0.15-1.2) mg/dL AST 29 (0-32) U/L ALT 15 (0-33) U/L Alkaline Phosphata se 80 (35-105) IU/L Troponin T Baselin e (0-10) ng/L Troponin T 120 Min north [place] (0-10) ng/L Delta Troponin T (0-10) ABS# NT-Pro-B Natriuret Pep 1015 H (0-125) pg/mL Total Protein 6.1 L (6.6-8.7) g/dL Albumin 3.4 L (3.5-5.2) g/dL Globulin 2.7 (1.3-4.6) g/dL Urine Color (Yellow) Urine Appearance (CLEAR) Urine pH (5-7) Ur Specific Gravit y (1.005-1.030) Urine Protein (Negative) Urine Glucose (UA) (Normal) Urine Ketones (Negative) Urine Blood (Negative) Urine Nitrate (Negative) Urine Bilirubin (Negative) Urine Urobilinogen (Negative) mg/dL Ur Leukocyte Lisa ase (Negative) 08/16/20 08/16/20 08/16/20 Range/Units 13:45 14:39 15:24 WBC (4.0-10.0) 10^3/ uL RBC (4.1-5.3) 10^6/u L Hgb (11.5-15.3) g/dL Hct (37.0-47.0) % MCV (81-99) fL MCH (28.0-34.0) pg MCHC (30.0-36.0) g/dL RDW (12.1-15.1) % Plt Count (130-400) 10^3/c mm MPV (7.4-10.4) fL Neut % (Auto) % Lymph % (Auto) % Woods % (Auto) % Eos % (Auto) % Baso % (Auto) % Neut # (Auto) (1.8-7.7) 10^3/u L Lymph # (Auto) (0.8-4.8) 10^3/u L Woods # (Auto) (0.2-0.9) 10^3/u L Eos # (Auto) (0.0-0.8) 10^3/u L Baso # (Auto) (0.0-0.1) 10^3/u L Nucleated RBC % (a uto) % Nucleated RBCs # /100WBC D-Dimer (0-0.59) ug/mIFE U Sodium (136-145) mmol/L Potassium (3.5-5.1) mmol/L Chloride (98-107) mmol/L Carbon Dioxide (22-29) mmol/L Anion Gap (5-19) BUN (6-20) mg/dL Creatinine (0.5-0.9) mg/dL GFR Calculation (90-130) mL/min Glucose (65-115) mg/dL Calculated Osmolal ity (285-295) mOsm/k g Calcium (8.5-10.5) mg/dL Total Bilirubin (0.15-1.2) mg/dL AST (0-32) U/L ALT (0-33) U/L Alkaline Phosphata se (35-105) IU/L Troponin T Baselin e 11 H (0-10) ng/L Troponin T 120 Min north fork 10.58 H (0-10) ng/L Delta Troponin T -0.42 L (0-10) ABS# NT-Pro-B Natriuret Pep (0-125) pg/mL Total Protein (6.6-8.7) g/dL Albumin (3.5-5.2) g/dL Globulin (1.3-4.6) g/dL Urine Color Straw (Yellow) Urine Appearance Clear (CLEAR) Urine pH 7 (5-7) Ur Specific Gravit y 1.005 (1.005-1.030) Urine Protein Neg (Negative) Urine Glucose (UA) Norm (Normal) Urine Ketones Negative (Negative) Urine Blood Neg (Negative) Urine Nitrate Negative (Negative) Urine Bilirubin Neg (Negative) Urine Urobilinogen Norm (Negative) mg/dL Ur Leukocyte Lisa ase Negative (Negative) Discharge Plan Discharge Patient Disposition: Home Clinical Impression: Atypical chest pain Condition: Stable Prescriptions: No Action Flovent HFA 110 mcg/actuation HFA aerosol inhaler 2 puff INHALATION Q12H Qty: 12 RF: 2 Hold Instructions: Dose Change budesonide [Pulmicort] 0.5 mg/2 mL suspension for nebulization 0.5 mg inhalation BID Qty: 120 RF: 0 albuterol sulfate 2.5 mg /3 mL (0.083 %) solution for nebulization 2.5 mg INHALATION Q6H PRN (Reason: shortness of breath or wheezing) Qty: 180 RF: 0 amiodarone 200 mg tablet 100 mg PO DAILY Qty: 45 RF: 3 aspirin 81 mg tablet,delayed release (DR/EC) 81 mg PO BID Qty: 60 RF: 2 atorvastatin [Lipitor] 10 mg tablet 10 mg PO DAILY Qty: 30 RF: 2 calcium carbonate-vitamin D3 [Os-Vitor 500 + D3] 500 mg(1,250mg) -200 unit tablet 1 tab PO BID Qty: 60 RF: 2 chlorhexidine gluconate [Peridex] 0.12 % mouthwash 15 ml BUCCAL BID Qty: 600 RF: 2 cyanocobalamin (vitamin B-12) [Vitamin B-12] 1,000 mcg tablet 1,000 mcg PO DAILY Qty: 30 RF: 2 folic acid 1 mg tablet 1 mg PO DAILY Qty: 30 RF: 2 levalbuterol tartrate [Xopenex HFA] 45 mcg/actuation HFA aerosol inhaler 2 inh INHALATION Q6H PRN (Reason: shortness of breath or wheezing) Qty: 15 RF: 2 liothyronine [Cytomel] 5 mcg tablet 10 mcg PO DAILY Qty: 60 RF: 2 lisinopril 2.5 mg tablet 2.5 mg PO DAILY Qty: 30 RF: 2 magnesium oxide 400 mg magnesium tablet 400 mg PO BID Qty: 60 RF: 2 venlafaxine [Effexor XR] 75 mg capsule,extended release 24hr 75 mg PO DAILY Qty: 30 RF: 2 potassium 99 mg Tablet 99 mg PO DAILY RF: 0 famotidine 20 mg Tablet 20 mg PO BID RF: 0 Azo 95 mg Tablet 95 mg PO DAILY RF: 0 carvedilol 3.125 mg tablet 3.125 mg PO BID RF: 0 gabapentin 100 mg capsule 100 mg PO BID PRN (Reason: Pain) RF: 0 Discharge Orders: Discharge ED (Routine); Ordered 08/16/20 Ordered By: Abhi José Referrals: Yudy Lozoya, [employer]ER[facility] [Primary Care Provider] - Discharge Diet: Advance as tolerated Discharge Activity: Resume usual activity Patient Instructions: Chest Pain (ED), Opioid Safety Activity Restrictions/Additional Instructions: You have chest pain of unclear cause. Please follow-up outpatient with cardiology to discuss further. Return to the ER with worsening symptoms. We have checked your heart in the ER and it has been okay and certainly stable for outpatient follow-up. Return if symptoms worsen at home. Continue to take your blood pressure medicines and follow-up with Dr. Prakash within a week or 2 Coding Level of Care Code ED Forest Scientist for Chg Fwd Exam Comprehensive
[2020-08-16] MEDS: aspirin 81 mg Chew Tablet 324 MG PO (13:59)
[2020-08-16 14:09] LABS: Basophils % 0.7 %; Eosinophils % 0.7 %; Hematocrit 32.1 % (37.0-47.0); Hemoglobin 10.7 g/dL (11.5-15.3); Lymphocytes # 2.1 10^3/uL (0.8-4.8); Lymphocytes % 37.5 %; Mean Corpuscular HGB Conc 33.3 g/dL (30.0-36.0); Mean Corpuscular Volume 96.1 fL (81-99); Mean Platelet Volume 9.2 fL (7.4-10.4); Monocytes # 0.5 10^3/uL (0.2-0.9); Monocytes % 8.9 %; Neutrophils # 2.85 10^3/uL (1.8-7.7); Nucleated Red Blood Cells % 0 %; Platelet Count 271 10^3/cmm (130-400); Red Blood Count 3.34 10^6/uL (4.1-5.3); Red Cell Distribution Width 15.3 % (12.1-15.1); White Blood Count 5.5 10^3/uL (4.0-10.0)
[2020-08-16 14:25] LABS: Troponin(5th) Baseline 11 ng/L (0-10)
[2020-08-16 14:35] LABS: Alanine Aminotransferase 15 U/L (0-33); Albumin Level 3.4 g/dL (3.5-5.2); Alkaline Phosphatase 80 IU/L (35-105); Anion Gap 13.4 (5-19); Aspartate Amino Transferase 29 U/L (0-32); Blood Urea Nitrogen 5 mg/dL (6-20); Calcium 8.4 mg/dL (8.5-10.5); Carbon Dioxide 29 mmol/L (22-29); Chloride 97 mmol/L (98-107); Globulin 2.7 g/dL (1.3-4.6); Glucose 93 mg/dL (65-115); NT Pro B Type Natriuretic Pept 1015 pg/mL (0-125); Osmolality Calculated 279 mOsm/kg (285-295); Potassium 3.4 mmol/L (3.5-5.1); Sodium 136 mmol/L (136-145); Total Bilirubin 0.2 mg/dL (0.15-1.2); Total Protein 6.1 g/dL (6.6-8.7)
[2020-08-16 15:16] LABS: Add Urine Microscopic? NO
--- NOTE | 2020-08-16 15:40 | ECG_ITS ---
[facility] Test Date: 2020-08-16 Pat Name: Nunu Mccoy Department: Room: Gender: Female Chief Scientist: : 1975 Requested By: Abhi José Order Number: [id number] Hassan MD: lAma Bueno M.D. Measurements Intervals [place] Rate: 82 P: 78 HI: 148 QRS: -20 QRSD: 120 T: 78 QT: 425 QTc: 497 Interpretive Statements SINUS RHYTHM MODERATE INTRAVENTRICULAR CONDUCTION DELAY [105+ ms QRS DURATION, 80+ ms Q/S IN V1/V2, NO Q AND 60+ ms R IN I/aVL/V5/V6] NONSPECIFIC T-WAVE ABNORMALITY Compared to ECG 11/09/2016 17:06:56 Intraventricular conduction delay now present T-wave abnormality now present Left anterior fascicular block no longer present Myocardial infarct finding no longer present Electronically Signed On 08-16-2020 19:38:33 MARRIAGE THERAPIST by Alma Bueno M.D. [id number]
[2020-08-16 16:03] LABS: Troponin 5 2HR 10.58 ng/L (0-10)
[2020-08-16 16:04] LABS: Troponin 5 2HR Delta -0.42 ABS# (0-10)
[2020-08-16 16:13] LABS: Bilirubin Urine Neg (Negative); Blood Urine Neg (Negative); Glucose Urine UA Norm (Normal); Ketones Urine Negative (Negative); Leukocyte Esterase Urine Negative (Negative); Nitrate Urine Negative (Negative); Protein Urine Neg (Negative); Specific Gravity, Urine 1.005 (1.005-1.030); Urine Appearance Clear (CLEAR); Urine Color Straw (Yellow); Urobilinogen Urine Norm (Negative); pH Urine 7 (5-7)
[2020-08-16 16:14] LABS: D Dimer 0.54 ug/mIFEU (0-0.59)
[2020-08-16] MEDS: cloNIDine 0.1 mg Tablet PO (17:23)
--- NOTE | 2020-08-16 19:11 | PC.NURSE ---
Dr. José aware of patient's blood pressure at time of discharge
--- NOTE | 2020-08-17 10:31 | DCPLANNER ---
manager internet had message to schedule a follow up appointment for patient with heart care. manager internet called heart care, spoke with Malissa, gave clinic patients information. A follow up appointment was scheduled for Saturday, August 22, 2020 at 8:30 with ELECTRONIC PAGE MAKEUP SYSTEM OPERATORLinda. Patient is aware of appointment.
--- NOTE | 2020-09-11 08:06 | DCPLANNER ---
Patient had a follow up appointment scheduled with heart care - patient did attend appointment.
== END 2020-08-16 19:15 | disposition home or self-care (01) ==
PROVIDERS: Emergency Provider Family Medicine; PCP Nurse Practitioner
DX: R07.89 Other chest pain (principal); Z79.82 Long term (current) use of aspirin; F17.210 Nicotine dependence, cigarettes, uncomplicated; E78.5 Hyperlipidemia, unspecified; I10 Essential (primary) hypertension; J44.9 Chronic obstructive pulmonary disease, unspecified
CPT/HCPCS: 12345; 36415; 71045; 80053; 81003; 83880; 84484; 85025; 85378; 93005; 99283; 99284

== ENCOUNTER → 2020-09-18 10:09 | Outpatient (BNVA) | payer MEDICARE, MEDICAID, SELFPAY | PROVIDERS: PCP Nurse Practitioner; Visit Provider Nurse Practitioner | DX: I10 Essential (primary) hypertension (principal); R63.0 Anorexia; K12.2 Cellulitis and abscess of mouth; K21.9 Gastro-esophageal reflux disease without esophagitis; J43.9 Emphysema, unspecified; R79.89 Other specified abnormal findings of blood chemistry; F41.9 Anxiety disorder, unspecified; F32.9 Major depressive disorder, single episode, unspecified; E55.9 Vitamin D deficiency, unspecified | CPT/HCPCS: 80053; 85025 ==

== ENCOUNTER → 2020-10-31 08:30 | Outpatient (BNVA) | payer MEDICARE, MEDICAID, SELFPAY | PROVIDERS: PCP Nurse Practitioner; Visit Provider Nurse Practitioner | DX: R79.89 Other specified abnormal findings of blood chemistry (principal); R63.0 Anorexia; Z79.899 Other long term (current) drug therapy | CPT/HCPCS: 80053; 81000; 82607; 82746; 83550; 83735; 84443; 84481 ==

== ENCOUNTER → 2020-11-01 10:50 | Outpatient (BNVA) | payer MEDICARE, MEDICAID, SELFPAY | PROVIDERS: PCP Nurse Practitioner; Visit Provider Nurse Practitioner | DX: M79.643 Pain in unspecified hand (principal); M47.892 Other spondylosis, cervical region | CPT/HCPCS: 72040 ==

== ENCOUNTER → 2020-11-10 08:51 | Outpatient (BNVA) | payer MEDICARE, MEDICAID, SELFPAY | PROVIDERS: PCP Nurse Practitioner; Visit Provider Nurse Practitioner | DX: M79.18 Myalgia, other site (principal) | CPT/HCPCS: 74018 ==

== ENCOUNTER → 2020-12-11 10:33 | Outpatient (BNVA) | payer MEDICARE, MEDICAID, SELFPAY | PROVIDERS: PCP Nurse Practitioner; Visit Provider Family Medicine | DX: D50.8 Other iron deficiency anemias (principal); R79.89 Other specified abnormal findings of blood chemistry | CPT/HCPCS: 80053; 84481; 85025 ==

== ENCOUNTER 2021-02-13 12:48 | Emergency (ER) | payer MEDICARE, MEDICAID, SELFPAY ==
[2021-02-13 13:33] VITALS: BP 152/94; PULSE 74; RESP 16; TEMP 36.9; O2SAT 99
--- NOTE | 2021-02-13 15:58 | XRR_ITS ---
PROCEDURE INFORMATION: Exam: XR Right Hip Exam date and time: 02/13/2021 3:58 PM Age: 45 years old Clinical indication: Injury or trauma; Fall; Blunt trauma (contusions or hematomas); Injury details: Right hip broken previously according to patient but no surgery was required TECHNIQUE: Imaging protocol: XR Right hip. Views: 1 view hip with pelvis when performed. COMPARISON: CR Hip 2-3v RIGHT wwo Pelv* [id number] 10/07/2016 3:44 PM FINDINGS: Bones/joints: Stable mild degenerative changes of the right and left sacroiliac joints. Stable mild degenerative changes at the right and left hips. No dislocation. Normal bone mineralization. No acute fracture. Soft tissues: No soft tissue swelling. No radiopaque foreign body. XR/XR hip RT 2-3V wo/w pel* [id number] IMPRESSION: 1. No acute fracture. MRI would be recommended if clinical concern for fracture persists. 2. Stable mild degenerative changes at the right and left hips. 3. Incidental/nonacute findings are listed in the report.
--- NOTE | 2021-02-13 16:05 | W.ED.EXTPRO ---
HPI - Extremity Problem General: Chief complaint: Extremity Injury, Lower Stated complaint: RIGHT HIP INJURY Time Seen by Provider: 02/13/21 15:53 Source: patient Mode of arrival: other (crutches) History of Present Illness: HPI Narrative: pt fell yesterday when walking to bathroom, brother's dog knocked her over Complaint: extremity pain Location: right and lower extremity Quality: aching and constant Review of Systems General: Reports: 10 or more systems reviewed and unremarkable except in HPI and below Musc: Reports: extremity pain (right hip) PFS ED PFSH: Medical History Acid reflux Alcohol dependence, daily use 1-2 beer daily Anorexia Anxiety and depression Burst fracture of T12 vertebra Chronic episodic atrial fibrillation Patient is not on oral anticoagulant because of the GI bleed. 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 Dyslipidemia Essential (primary) hypertension High risk medication use Low serum triiodothyronine (T3) Non-ischemic cardiomyopathy Personal history of nicotine dependence Smoking addiction Underweight Vitamin D deficiency Surgical History History of colonoscopy 2017 History of esophagogastroduodenoscopy (EGD) (~2017) Family History Mother Cancer Brother Heart disease CAD (coronary artery disease) Grandmother Diabetes CAD (coronary artery disease) Cancer Denies family history of Clotting disorder Dementia Chronic kidney disease (CKD) Suicide Anesthesia complication Bleeding disorder Lung disease Stroke Social History Smoking and tobacco status: current every day smoker cigarettes Second hand smoke exposure: No Smoking risk assessment/counseling performed?: Yes Alcohol intake: current Alcohol intake frequency: holidays/special occasions only Desire information about alcohol rehabilitation?: No Counseling given: No Desire information about substance/drug rehabilitation?: No Counseling given: No Adopted: No Caregiver/support person: No Lives independently: Yes Household members: family Housing: House Marital status: Single service: No Current occupational status: unemployed Pets and animals: Yes History of recent travel: No Current gender identity: Female Physical Exam Const: COMMON NORMALS: no acute distress, patient oriented x3, no limitations and alert GENERAL APPEARANCE: cooperative and comfortable ORIENTATION/CONSCIOUSNESS: Yes awake, Yes oriented to person, Yes oriented to place and Yes oriented to time HENMT: COMMON NORMALS: normocephalic, atraumatic, external ears normal, EAC's normal, TM's normal bilaterally and Normal external nose present HEAD & SCALP: normal to inspection, normocephalic and atraumatic FACE & SINUS: normal facial exam, sinuses nontender and face symmetric NOSE: Normal external nose present, Normal nares present and No nasal discharge present EXTERNAL EAR: Yes external ears normal EXTERNAL AUDITORY CANAL: EAC's normal TYMPANIC MEMBRANE: TM's normal bilaterally MOUTH: Normal oral and palatal mucosa present, lip normal and tongue normal THROAT: posterior oropharynx normal, tonsils normal and uvula midline Eye: COMMON NORMALS: Equal, round and reactive pupils present, EOMs intact bilaterally and conjunctivae normal GENERAL EYE: appearance normal, both eyes and all related structures and normal light reflex EYELID: eyelids normal CONJUNCTIVA: Yes conjunctivae normal PUPIL: Yes Equal, round and reactive pupils present EOM: Yes EOM abnormal DIRECT OPHTHALMOSCOPY: Yes normal light reflex Neck/C-Spine: COMMON NORMALS: full ROM, no lymphadenopathy, supple, no meningeal signs, no JVD and Thyroid normal GENERAL: Yes normal visual inspection THYROID: Thyroid normal CERVICAL SPINE: Yes cervical ROM normal and Yes normal cervical lordosis Lymph: LYMPHATIC: no lymphadenopathy noted Chest: COMMONS NORMALS: normal inspection of the chest and normal palpation of entire chest wall Resp: COMMON NORMALS: normal respiratory effort, No retractions and clear to auscultation bilaterally AUSCULTATION: clear to auscultation bilaterally Cardio: COMMON NORMALS: no JVD, regular rate, regular rhythm, S1 normal heart sound present, S2 normal heart sound present, No gallops present (Cardio), No clicks present (Cardio), No murmurs present (Cardio), No rub (Cardio) and Peripheral pulses 2+ throughout RATE: regular rate RHYTHM: regular rhythm HEART SOUNDS: S1 normal heart sound present and S2 normal heart sound present PERIPHERAL PULSES: Peripheral pulses 2+ throughout GI: COMMON NORMALS: Normal to inspection, nondistended, normoactive bowel sounds present, Soft to palpation, non-tender and no masses PALPATION: Yes Soft to palpation : COMMON NORMALS: Yes no CVA tenderness and Yes normal external appearance BLADDER/KIDNEY EXAM: Yes no CVA tenderness Back/Pelvis: COMMON NORMALS: no CVA tenderness, thoracic and lumbar spine normal to inspection, no thoracic nor lumbar tenderness and thoraco-lumbar ROM normal Extremity: COMMON NORMALS: normal to inspection, full ROM, capillary refill normal, no joint enlargement, no clubbing, cyanosis or edema, no calf tenderness and no pedal edema GENERAL: Yes normal exam except as noted RIGHT LOWER EXTREMITY: Yes hip joint Neuro: COMMON NORMALS: patient oriented x3, moves all extremities, no focal motor deficits, no sensory deficits noted and gait normal SENSORIUM/ORIENTATION: Yes alert, Yes oriented to person, Yes oriented to place and Yes oriented to time MENINGEAL SIGNS: Yes no meningeal signs Psych: COMMON NORMALS: mental status grossly normal, Normal thought process present, cooperative, normal affect, speech normal and activity/motor behavior normal SPEECH: Yes normal speech THOUGHT PROCESS: Normal thought process present Skin: COMMON NORMALS: no rashes or lesions noted, no wounds and turgor normal GENERAL SKIN EXAM: no rashes or lesions noted and turgor normal Course ED course: Pt comes to ER for right hip pain. She was seen in [facility] and given toradol shot that has helped. She fell yesterday going to the bathroom. Her brother's dog jumped on her. She is complaining of right hip pain but is still able to ambulate some. She is using crutches upon arrival. Reevaluation(s): Reevaluation #1: xray negative for acute fx; mri indicated if pain persists. Will dc with instructions to return if needed. RICE therapy. Time: 16:52 Vital Signs: Vital signs: Vital Signs Temperature 98.4 F 02/13/21 13:33 Pulse Rate 76 02/13/21 16:19 Respiratory Rate 16 02/13/21 16:19 Blood Pressure 145/96 02/13/21 16:19 Pulse Oximetry 97 02/13/21 16:19 MDM - Extremity (Nontraumatic) Imaging Data^: Other Imaging: Radiologist's impression: [facility] [address] [place] [address] XRay Report Signed Patient: Nunu Mccoy Unit #: [id number] : 1975 Age/Sex: 45 / F ADM Date: 02/13/21 Loc: ER Room/Bed: Attending Dr: Ordering Provider/Ordering MD: Nati Lan NP Date of Service: 02/13/21 Procedure(s): XR hip RT 2-3V wo/w pel* [id number] Accession Number(s): [id number] Report Number: [id number] PROCEDURE INFORMATION: Exam: XR Right Hip Exam date and time: 02/13/2021 3:58 PM Age: 45 years old Clinical indication: Injury or trauma; Fall; Blunt trauma (contusions or hematomas); Injury details: Right hip broken previously according to patient but no surgery was required TECHNIQUE: Imaging protocol: XR Right hip. Views: 1 view hip with pelvis when performed. COMPARISON: CR Hip 2-3v RIGHT wwo Pelv* [id number] 10/07/2016 3:44 PM FINDINGS: Bones/joints: Stable mild degenerative changes of the right and left sacroiliac joints. Stable mild degenerative changes at the right and left hips. No dislocation. Normal bone mineralization. No acute fracture. Soft tissues: No soft tissue swelling. No radiopaque foreign body. XR/XR hip RT 2-3V wo/w pel* [id number] IMPRESSION: 1. No acute fracture. MRI would be recommended if clinical concern for fracture persists. 2. Stable mild degenerative changes at the right and left hips. 3. Incidental/nonacute findings are listed in the report. Dictated By: Consuelo Singleton MD Signed By: Consuelo Singleton MD Signed Date/Time: 02/13/21 1641 DD/ 1640 Discharge Plan Discharge Condition: Stable Prescriptions: No Action aspirin 81 mg tablet,delayed release (DR/EC) 81 mg PO BID Qty: 60 RF: 2 atorvastatin [Lipitor] 10 mg tablet 10 mg PO DAILY Qty: 30 RF: 2 calcium carbonate-vitamin D3 [Os-Vitor 500 + D3] 500 mg(1,250mg) -200 unit tablet 1 tab PO BID Qty: 60 RF: 2 cyanocobalamin (vitamin B-12) [Vitamin B-12] 1,000 mcg tablet 1,000 mcg PO DAILY Qty: 30 RF: 2 famotidine 20 mg tablet 20 mg PO BID Qty: 60 RF: 2 folic acid 1 mg tablet 1 mg PO DAILY Qty: 30 RF: 2 clonidine HCl 0.1 mg tablet 0.1 mg PO BID PRN (Reason: hypertensive emergency) Qty: 60 RF: 1 levalbuterol tartrate [Xopenex HFA] 45 mcg/actuation HFA aerosol inhaler 2 inh INHALATION Q6H PRN (Reason: shortness of breath or wheezing) Qty: 15 RF: 2 lisinopril 10 mg tablet 10 mg PO DAILY Qty: 30 RF: 2 magnesium oxide 400 mg magnesium tablet 400 mg PO BID Qty: 60 RF: 2 methocarbamol 500 mg tablet 500 mg PO TID PRN (Reason: muscle pain) Qty: 90 RF: 2 albuterol sulfate 2.5 mg /3 mL (0.083 %) solution for nebulization 2.5 mg INHALATION Q6H PRN (Reason: shortness of breath or wheezing) Qty: 180 RF: 0 ketorolac 10 mg tablet 10 mg PO QID PRN (Reason: pain) 5 Days Qty: 20 RF: 0 amiodarone 200 mg tablet 100 mg PO DAILY Qty: 45 RF: 3 carvedilol 3.125 mg tablet 3.125 mg PO BID Qty: 60 RF: 5 venlafaxine [Effexor XR] 75 mg capsule,extended release 24hr 75 mg PO DAILY Qty: 30 RF: 2 Flovent HFA 110 mcg/actuation HFA aerosol inhaler 2 puff INHALATION Q12H Qty: 12 RF: 2 Hold Instructions: Dose Change gabapentin 100 mg capsule 100 mg PO BID Qty: 60 RF: 2 liothyronine [Cytomel] 5 mcg tablet 15 mcg PO DAILY Qty: 90 RF: 2 potassium 99 mg Tablet 99 mg PO DAILY RF: 0 Discharge Orders: Discharge ED (Routine); Ordered 02/13/21 Ordered By: Nati Lan Referrals: Yudy Lozoya, MEDICAL MANAGER-C [Primary Care Provider] - Discharge Diet: Usual diet Discharge Activity: Increase activity as tolerated Activity Restrictions/Additional Instructions: Return if pain persists or let Primary Doctor know as MRI may be indicated Rest, ice, and ibuprofen and tylenol as needed Coding Level of Care Code ED Exhibit Carpenter for Chg Fwd Exam Comprehensive
[2021-02-13 16:19] VITALS: BP 145/96; PULSE 76; RESP 16; O2SAT 97
[2021-02-13 16:59] VITALS: BP 145/96; PULSE 76; RESP 16; TEMP 36.9; O2SAT 97
== END 2021-02-13 17:00 | disposition home or self-care (01) ==
PROVIDERS: Emergency Provider Nurse Practitioner Family; PCP Nurse Practitioner
DX: M25.551 Pain in right hip (principal); I48.20 Chronic atrial fibrillation, unspecified; J44.9 Chronic obstructive pulmonary disease, unspecified; E78.5 Hyperlipidemia, unspecified; I10 Essential (primary) hypertension; F17.210 Nicotine dependence, cigarettes, uncomplicated; Z79.82 Long term (current) use of aspirin
CPT/HCPCS: 73502; 99282

== ENCOUNTER 2021-02-27 07:56 | Outpatient (CLI) | payer MEDICARE, MEDICAID, SELFPAY ==
--- NOTE | 2021-02-27 08:00 | MR_ITS ---
WS: [id number] MRI LUMBAR SPINE NONCONTRAST TECHNIQUE: Sagittal T1, T2 and STIR imaging. Axial T1 and T2 imaging. 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 COMPARISON: CT lumbar December 10, 2019 FINDINGS: Mild lumbar curve. Acute appearing compression inferior endplate L3 with mild compression deformity. Diffuse edema L3 vertebral body. Pedicles appear intact. Additional biconcave compression fracture T1 2 vertebral body with anterior wedging was present on June 12, 2020 and has progressed slightly w ith mild interval compression and edema consistent with recent compression. Mild retropulsion of the posterior superior cortex with mild central canal stenosis. Loss of approximately 60% vertebral body height. L1-L2: Normal. L2-L3: No significant disc bulging. Moderate facet arthropathy. Spinal canal and foramen are patent. L3-L4: Mild disc bulging with slight effacement of ventral thecal sac. Slight narrowing of the right subarticular recess. Moderate facet arthropathy. Foramen are patent. L4-L5: Mild disc bulging with a shallow central protrusion and small annular tear. Mild central canal stenosis. Slight impingement traversing L5 nerve roots. Foramen are patent. Moderate facet arthropat hy ligament flavum hypertrophy. L5-S1: Mild disc bulging with slight effacement of the ventral thecal sac. Mild facet arthropathy. Sp inal canal and foramen are patent. Diffuse edema in the partially visualized sacrum extending into the sacral ala likely due to recent t rauma or insufficiency fractures. Cortical irregularity at the S3 vertebral segment with edema and as sociated presacral soft tissue edema consistent with nondisplaced fracture with recent trauma. MR/MR lumbar spine wo con* [id number] IMPRESSION: 1. Recent acute compression involving the inferior endplate L3 with diffuse ed dick L3 vertebral body. Mild loss vertebral body height. 2. Acute on chronic compression T12 vertebral body with anterior wedging. Loss of approximately 60% vertebral body height with edema. Mild retropulsion poste rior superior cortex with mild central canal stenosis. 3. Diffuse edema in the bilateral partially visualized sacrum and sacral ala c onsistent with surgical insufficiency fractures and/or contusion. 4. Additional cortical irregularity with edema involving the S3 sacral segment consistent with recent trauma and nondisplaced fracture with contusion. Associ ated presacral edema. 5. Mild disc bulging L4-5 with a shallow central protrusion and tiny annular t ear. Mild central canal stenosis and impingement traversing L5 nerve roots bila terally.
== END 2021-02-27 07:57 | disposition home or self-care (01) ==
LOC: RADSHAW 08:01
PROVIDERS: PCP Nurse Practitioner; Visit Provider Nurse Practitioner
DX: M47.819 Spondylosis without myelopathy or radiculopathy, site unspecified (principal); M51.26 Other intervertebral disc displacement, lumbar region; R60.0 Localized edema; M48.54XA Collapsed vertebra, not elsewhere classified, thoracic region, initial encounter for fracture
CPT/HCPCS: 72148

== ENCOUNTER → 2021-03-15 11:00 | Outpatient (BNVA) | payer MEDICARE, MEDICAID, SELFPAY | PROVIDERS: PCP Nurse Practitioner; Referring Provider Nurse Practitioner; Visit Provider Orthopaedic Surgery | DX: M48.061 Spinal stenosis, lumbar region without neurogenic claudication (principal); S22.080A Wedge compression fracture of T11-T12 vertebra, initial encounter for closed fracture; X58.XXXA Exposure to other specified factors, initial encounter | CPT/HCPCS: 72110 ==

== ENCOUNTER → 2021-05-03 09:52 | Outpatient (BNVA) | payer MEDICARE, MEDICAID, SELFPAY | PROVIDERS: PCP Nurse Practitioner; Visit Provider Orthopaedic Surgery | DX: Z01.812 Encounter for preprocedural laboratory examination (principal); Z20.822 Contact with and (suspected) exposure to COVID-19 | CPT/HCPCS: 87635 ==

== ENCOUNTER 2021-05-08 14:19 | Outpatient (CLI) | payer MEDICARE, MEDICAID, SELFPAY ==
--- NOTE | 2021-05-08 15:00 | USCV_ITS ---
Nunu Mccoy Age: 45 Gender: F : 1975 Exam Date: 05/08/2021 14:38 Ordering Phys: Evelyne Prakash MD ([email or web address]) Technologist: Elsy Mendoza Exam Location: [facility] [place] Indication: OTHER, CP BP: 127 / 72 HR: 72 Rhythm: Sinus Technical Quality: Adequate MEASUREMENTS (Male / Female) Normal Values 2D ECHO LV Diastolic Diameter PLAX 3.5 cm 4.2 - 5.9 / 3.9 - 5.3 cm LV Systolic Diameter PLAX 1.4 cm IVS Diastolic Thickness 0.9 cm 0.6 - 1.0 / 0.6 - 0.9 cm IVS Systolic Thickness 1.5 cm LVPW Diastolic Thickness 0.7 cm 0.6 - 1.0 / 0.6 - 0.9 cm LVPW Systolic Thickness 0.9 cm LVOT Diameter 1.8 cm LV Ejection Fraction 2D Teich 90.4 % LV Ejection Fraction MOD 2C 60.9 % LV Ejection Fraction 2C AL 61.0 % LA Diameter 2.3 cm LA Width 2.9 cm LA Height 3.5 cm RA Width 2.4 cm RA Height 2.8 cm DOPPLER AV Peak Velocity 82.0 cm/s LVOT Peak Velocity 79.0 cm/s AV Area Cont Eq vti 2.4 cm squared AV Area Cont Eq pk 2.3 cm squared MV Peak Velocity 84.0 cm/s MV Area PHT 3.7 cm squared Mitral E to A Ratio 0.8 MV E' Velocity 31.5 cm/s Mitral E to MV E' Ratio 7.6 Mitral E to LV E' Lateral Ratio 6.7 Mitral E to LV E' Septal Ratio 8.8 TR Peak Velocity 216.8 cm/s TR Peak Gradient 18.8 mmHg Right Atrial Pressure 3.0 mmHg Pulmonary Artery Systolic Pressu 21.8 mmHg PV Peak Velocity 43.0 cm/s RV Acceleration Time 0.1 s RV Ejection Time 0.3 s RV AcT/ET 0.4 FINDINGS Left Ventricle Normal LV size with an ejection fraction of 50 to 55%. Mild hypokinesis of the LV apex. Right Ventricle The right ventricle is normal in size and function. Right Atrium The right atrium is normal in size. Left Atrium The left atrium is normal in size. Mitral Valve No gross abnormalities noted Aortic Valve No gross abnormalities noted. Tricuspid Valve Trace to mild tricuspid valve regurgitation. Pulmonic Valve Pulmonic valve not well visualized. Pericardium Normal pericardium without effusion. Aorta Normal ascending aorta dimension. CONCLUSIONS Normal LV size with an ejection fraction of 50 to 55%. Wall motion abnormality as mentioned above Trace to mild tricuspid valve regurgitation. Mild hypokinesis of the LV apex. There is no pericardial effusion. There are no intracardiac masses. Compared to the study from 05/06/2019, there is improvement in the LV ejection fraction Dr Evelyne Prakash MD FAC (Electronically Signed) Final Date: 08 May 2021 15:57 S
== END 2021-05-08 14:20 | disposition home or self-care (01) ==
LOC: RAD 14:24
PROVIDERS: PCP Nurse Practitioner; Visit Provider Internal Medicine Cardiovascular Disease
DX: R07.89 Other chest pain (principal); I42.8 Other cardiomyopathies; I07.1 Rheumatic tricuspid insufficiency
CPT/HCPCS: 80053; 84481; 85025; 93306

== ENCOUNTER 2021-05-09 06:36 | Day surgery (SDC) | payer MEDICARE, MEDICAID, SELFPAY ==
[2021-05-04 11:09] VITALS: BMI 11.1
--- NOTE | 2021-05-04 11:14 | ECG_ITS ---
[facility] Test Date: 2021-05-04 Pat Name: Nunu Mccoy Department: Room: Gender: Female Manager Policy: : 1975 Requested By: Francisco Bolton Order Number: [id number] Hassan MD: Alma Bueno M.D. Measurements Intervals [place] Rate: 76 P: 81 [place]: 164 QRS: -48 QRSD: 113 T: 85 QT: 439 QTc: 497 Interpretive Statements SINUS RHYTHM LEFT AXIS DEVIATION [QRS AXIS < -30] MODERATE INTRAVENTRICULAR CONDUCTION DELAY [105+ ms QRS DURATION, 80+ ms Q/S IN V1/V2, NO Q AND 60+ ms R IN I/aVL/V5/V6] NONSPECIFIC T-WAVE ABNORMALITY Compared to ECG 08/16/2020 15:39:10 Left-axis deviation now present T-wave abnormality still present Electronically Signed On 05-05-2021 8:57:04 CDT by Alma Bueno M.D. [id number]
[2021-05-04 11:36] LABS: Basophils # 0.1 10^3/uL (0.0-0.1); Basophils % 0.9 %; Eosinophils % 0.5 %; Hematocrit 28.5 % (37.0-47.0); Hemoglobin 9.3 g/dL (11.5-15.3); Lymphocytes # 1.7 10^3/uL (0.8-4.8); Lymphocytes % 29.8 %; Mean Corpuscular HGB Conc 32.6 g/dL (30.0-36.0); Mean Corpuscular Hemoglobin 30.9 pg (28.0-34.0); Mean Corpuscular Volume 94.7 fl (81-99); Mean Platelet Volume 9.1 fL (7.4-10.4); Monocytes # 0.4 10^3/uL (0.2-0.9); Monocytes % 7.2 %; Neutrophils # 3.55 10^3/uL (1.8-7.7); Neutrophils % 61.3 %; Nucleated Red Blood Cells % 0 %; Platelet Count 249 10^3/cmm (130-400); Red Blood Count 3.01 10^6/uL (4.1-5.3); White Blood Count 5.8 10^3/uL (4.0-10.0)
--- NOTE | 2021-05-04 11:51 | P.ANESASSM_ITS ---
Pre-Anesthetic Assessment Pre-Anesthetic Assessment: Height/Weight: Height 1.7 m Weight 32.205 kg Proposed Procedure: Operation Date: 05/09/21 07:00 Proposed Procedures p Kyphoplasty T12 [id number](Not Applicable) - Godwin Navarrete, DO Was Beta Clemente taken within 24 hours: Yes Was Clonidine taken within 24 hours: N/A Social: Social History: Alcohol and Tobacco Exam: Pre-Anes Outpt Exam: alert, oriented x 3 and regular rate & rhythm Airway: Submandibular: WNL Cervical ROM: WNL MP: 2 Dentition: False (uppers) Additional comments: poor dentition on lower arch Pulmonary: Pulmonary: COPD CV/HEM: CV/HEM: Afib, Anemia, Arrythmia, CHF (EF 45-50%) and HTN GI: GI: GERD Metabolic: Metabolic: Hyperlipidemia Musc/skel: Musc/skel: Lower Back Pain Neuropsych: Neuropsych: Anxiety and Depression Anesthetic Plan: ASA status: 3 Anesthesia: General Risk of > 500 ml blood loss (7ml/kg in children): No PFSH Anesthesia PFSH: Medical History Acid reflux Alcohol dependence, daily use 1-2 beer daily Anorexia Anxiety and depression Burst fracture of T12 vertebra Chronic episodic atrial fibrillation Patient is not on oral anticoagulant because of the GI bleed. 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 Dyslipidemia Essential (primary) hypertension High risk medication use Low serum triiodothyronine (T3) Non-ischemic cardiomyopathy Personal history of nicotine dependence Smoking addiction Underweight Vitamin D deficiency Surgical History History of colonoscopy 2016 History of esophagogastroduodenoscopy (EGD) (~2017) Family History Mother Cancer Brother Heart disease CAD (coronary artery disease) Grandmother Diabetes CAD (coronary artery disease) Cancer Denies family history of Clotting disorder Dementia Chronic kidney disease (CKD) Suicide Anesthesia complication Bleeding disorder Lung disease Stroke Social History Second hand smoke exposure: No Smoking risk assessment/counseling performed?: Yes Alcohol intake: current Alcohol intake frequency: holidays/special occasions only Desire information about alcohol rehabilitation?: No Counseling given: No Desire information about substance/drug rehabilitation?: No Counseling given: No Adopted: No Caregiver/support person: No Lives independently: Yes Household members: family Housing: House Marital status: Single service: No Current occupational status: unemployed Pets and animals: Yes History of recent travel: No Current gender identity: Female Data Anesthesia CBC & Chem 7: 05/04/21 11:20 05/04/21 11:20 Other Labs: Laboratory Results - last 48 hr 05/04/21 11:20 WBC 5.8 RBC 3.01 L Hgb 9.3 L Hct 28.5 L MCV 94.7 MCH 30.9 MCHC 32.6 RDW 15.0 Plt Count 249 MPV 9.1 Neut % (Auto) 61.3 Lymph % (Auto) 29.8 [place] % (Auto) 7.2 Eos % (Auto) 0.5 Baso % (Auto) 0.9 Neut # (Auto) 3.55 Lymph # (Auto) 1.7 [place] # (Auto) 0.4 Eos # (Auto) 0.0 Baso # (Auto) 0.1 Nucleated RBC % (auto) 0 Nucleated RBCs # 0.0 Cardiac Studies: No Data to Display
[2021-05-04 11:56] LABS: Anion Gap 12.5 (5-19); Blood Urea Nitrogen 3 mg/dL (6-20); Calcium 8.2 mg/dL (8.5-10.5); Carbon Dioxide 29 mmol/L (22-29); Chloride 96 mmol/L (98-107); Glomerular Filtration Rate 90.1 mL/min (90-130); Glucose 86 mg/dL (65-115); Osmolality Calculated 274 mOsm/kg (285-295); Potassium 3.5 mmol/L (3.5-5.1); Sodium 134 mmol/L (136-145)
--- NOTE | 2021-05-09 | SCC_ITS ---
Procedure Done: T12 Kyphoplasty 148.5 seconds of fluoroscopic guidance, for a cumulative dose of 15.2 mGy, was provided to Dr. Navarrete by the radiology department. C-arm images of the thoracic spine were saved for the patient's permanent record. [facility]
--- NOTE | 2021-05-09 06:48 | SC_ITS ---
WS: [id number] C-arm fluoroscopy for T12 kyphoplasty, 05/09/2021 Clinical Data: T12 kyphoplasty Comparison: None. Findings: Kyphoplasty of T12 vertebral body. SC/C-arm FL for Kyphoplasty Impression: Kyphoplasty of T12 vertebral body.
[2021-05-09 06:57] VITALS: BP 122/88; PULSE 82; RESP 18; TEMP 36.6; O2SAT 98
--- NOTE | 2021-05-09 07:12 | PM.HP ---
Providers/Chief Complaint Primary Care Provider: CARLI FaustinC Chief Complaint: kyhoplasty History of Present Illness Nunu Mccoy is a 45 year old female 5 year old female patient here for evaluation of their low back pain. Onset: [sudden after a fall] Duration: [1 year] Characteristics: [sharp, stabbing, dull, aching] Severity: [moderate] Location: [low back] Radiating symptoms: [right lower extremity] Aggravating factors: [standing, walking, bending over] Alleviating factors: [none] Neuro deficits: numbness, tingling, & weakness RLE, no incontinence of bowel/bladder, or saddle anesthesia. Prior tx: [Gabapentin and Flexiril, lumbar brace] Review of Systems Narrative: General ROS: negative for weight changes, fever ENT ROS: negative for nasal congestion, drainage or bleeding, sore throat, dysphagia or ear pain Eyes: PERRL Hematological and Lymphatic ROS: negative for swollen glands or abnormal bleeding Endocrine ROS: negative for polyuria/polydpsia or new changes in weight Respiratory ROS: negative for cough, shortness of breath, or wheezing Cardiovascular ROS: negative for chest pain or dyspnea on exertion Gastrointestinal ROS: negative for reflux, abdominal pain, change in bowel habits, or black or bloody stools Musculoskeletal ROS: negative for back pain, neck pain, or joint pain or swelling except for current problem Neurological ROS: negative for TIA or stoke symptoms Skin: no rashes Medications/Allergies Home Medications Medication Instructions Recorded Confirmed Last Taken Type potassium 99 mg PO DAILY 08/16/20 05/09/21 05/08/21 History amiodarone 200 mg tablet 100 mg PO DAILY #45 tab 09/25/20 05/09/21 05/09/21 Rx albuterol sulfate 2.5 mg INHALATION Q6H PRN #180 ml 10/31/20 05/09/21 05/07/21 Rx atorvastatin 10 mg tablet 10 mg PO DAILY #30 tab 03/01/21 05/09/21 05/08/21 Rx cyanocobalamin (vitamin B-12) 1,000 mcg PO DAILY #30 tab 03/01/21 05/09/21 05/08/21 Rx 1,000 mcg tablet cyclobenzaprine 10 mg tablet 10 mg PO TID PRN #90 tab 03/01/21 05/09/21 05/08/21 Rx famotidine 20 mg tablet 20 mg PO BID #60 tab 03/01/21 05/09/21 05/08/21 Rx fluticasone propionate 110 2 puff INHALATION Q12H #12 gm 03/01/21 05/09/21 05/09/21 Rx mcg/actuation HFA aerosol inhaler folic acid 1 mg tablet 1 mg PO DAILY #30 tab 03/01/21 05/09/21 05/08/21 Rx levalbuterol tartrate 45 2 inh INHALATION Q6H PRN #15 gm 03/01/21 05/09/21 05/08/21 Rx mcg/actuation aerosol inhaler liothyronine 5 mcg tablet 15 mcg PO DAILY #90 tab 03/01/21 05/09/21 05/08/21 Rx lisinopril 10 mg tablet 10 mg PO DAILY #30 tab 03/01/21 05/09/21 05/08/21 Rx venlafaxine 75 mg capsule,extended 75 mg PO DAILY #30 cap 03/01/21 05/09/21 05/08/21 Rx release 24 hr aspirin 81 mg tablet,delayed 81 mg PO BID #180 tab 05/02/21 05/09/21 05/06/21 Rx release calcium carbonate 500 mg (1,250 2 tab PO BID #360 tab 05/02/21 05/09/21 05/08/21 Rx mg)-vitamin D3 200 unit tablet magnesium oxide 400 mg PO BID #180 tab 05/02/21 05/09/21 05/08/21 Rx clonidine HCl 0.1 mg tablet 0.1 mg PO BID PRN #60 tab 05/04/21 05/09/21 05/07/21 Rx gabapentin 300 mg capsule 300 mg PO TID PRN cap 05/08/21 05/09/21 05/08/21 History carvedilol [Coreg] 3.125 mg PO BID 05/09/21 05/09/21 05/09/21 History PFSH Acute PFSH: Medical History Acid reflux Alcohol dependence, daily use 1-2 beer daily Anorexia Anxiety and depression Burst fracture of T12 vertebra Chronic episodic atrial fibrillation Patient is not on oral anticoagulant because of the GI bleed. 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 Dyslipidemia Essential (primary) hypertension High risk medication use Low serum triiodothyronine (T3) Non-ischemic cardiomyopathy Personal history of nicotine dependence Smoking addiction Underweight Vitamin D deficiency Surgical History History of colonoscopy 2016 History of esophagogastroduodenoscopy (EGD) (~2017) Family History Mother Cancer Brother Heart disease CAD (coronary artery disease) Grandmother Diabetes CAD (coronary artery disease) Cancer Denies family history of Clotting disorder Dementia Chronic kidney disease (CKD) Suicide Anesthesia complication Bleeding disorder Lung disease Stroke Social History Smoking and tobacco status: current every day smoker cigarettes Second hand smoke exposure: No Smoking risk assessment/counseling performed?: Yes Alcohol intake: current Alcohol intake frequency: holidays/special occasions only Desire information about alcohol rehabilitation?: No Counseling given: No Desire information about substance/drug rehabilitation?: No Counseling given: No Adopted: No Caregiver/support person: No Lives independently: Yes Household members: family Housing: House Marital status: Single service: No Current occupational status: unemployed Pets and animals: Yes History of recent travel: No Current gender identity: Female Vitals/I&O/Wt Last Vital Signs Temp 98 F 05/09/21 06:57 Pulse 82 05/09/21 06:57 Resp 18 05/09/21 06:57 BP 122/88 05/09/21 06:57 Pulse Ox 98 05/09/21 06:57 Physical Exam Narrative: EXAM NARRATIVE: CONSTITUTIONAL: The patient is a normal appearing [] in no apparent distress. GENERAL: Patient in no acute distress. CARDIAC: Regular rate and rhythm. CHEST: Normal inspiratory effort, normal respiratory rate. ABDOMEN: Soft and nontender. SKIN: Clear, warm and intact. NEURO?PSYCH: The patient is alert and oriented to person, place and time. Sensorv /SILT Motor StrengthShoulder abduction C5 5/5Wrist extension C6 5/5Elbow extension C7 5/5Hand Pre Sales Systems Engineer C8 5/5Finger abduction T15/5 Radial/ Ulnar/ Median n intact LowerSensory (SILT)Motor StrengthHin flexion L2/3Ant/inner thigh 5/5Hip adduction L2/3 5/5Knee extension L4 Lat thigh, 5/5Toe dorsiflexion L5 5/5Ankle dorsiflexion L5/ U40Uezrhjy flexion S1 5/5 DTRBleeps 2+Triceps 2+Brachioradialis 2+Patellar 2+Achilles 2+ MUSCULOSKELETAL: [] UPPEREXTREMITIES: The patient had full active ROM in fingers, wrist, elbow, and shoulder. The patient demonstrated ability to fully flex/extend/abduct/adduct fingers, make ok sign, cross 2nd/3rd digits, extend 1st digit fully.. Radial pulse 2+, CR<2 seconds. LOWER EXTREMITIES: Pt has full, active ROM of toes, ankle, knee, and hip. Dorsalis pedis/posterior tibialis pulses 2+, CR<2 seconds. SPINE: Skin warm, dry, intact. Data : 05/04/21 11:20 05/04/21 11:20 A&P Assessment and plan (1) Burst fracture of T12 vertebra: kyphoplasty Status: Acute Attestations Medical Necessity Statement*: failed conservative tx Coding Level of Care Code Acute Component Assembler Supervisor for Chg Fwd Diagnoses Burst fracture of T12 vertebra S22.081A
[2021-05-09] MEDS: sodium chloride 0.9% 1,000 ML 30 ML IV (07:26)
--- NOTE | 2021-05-09 07:32 | P.ANESUD_ITS ---
Pre-Anesthetic Update Pre-Anesthetic Assessment: Date of Surgery/Procedure: 05/09/21 Preop Sandra gnosis: Compression fracture T12 Proposed Procedure: Operation Date: 05/09/21 08:10 Proposed Procedures p Kyphoplasty T12 11119(Not Applicable) - Godwin Navarrete, DO Any changes to Pre-Anesthetic Assessment?: No Last Intake: Intake Last Liquid Date 05/08/21 Last Liquid Time 15:00 Last Solid Date 05/08/21 Last Solid Time 15:00 Vitals: Temperature 98 F 05/09/21 06:57 Temperature Source Temporal Artery S can 05/09/21 06:57 Pulse Rate 82 05/09/21 06:57 Respiratory Rate 18 05/09/21 06:57 Blood Pressure 122/88 05/09/21 06:57 Blood Pressure Haylee n 99 05/09/21 06:57 Pulse Oximetry 98 05/09/21 06:57 Oxygen Delivery Me thod 05/09/21 06:58 Exam: Pre-Anes Outpt Exam: alert, oriented x 3, clear to auscultation bilaterally and regular rate & rhythm Cardiac Studies: No Data to Display
[2021-05-09 09:05] VITALS: BP 123/85; PULSE 92; RESP 20; TEMP 35.9; O2SAT 100
[2021-05-09 09:10] VITALS: BP 124/75; PULSE 94; RESP 14; O2SAT 100
[2021-05-09 09:15] VITALS: BP 119/81; PULSE 100; RESP 16; TEMP 36.1; O2SAT 97
--- NOTE | 2021-05-09 09:15 | PM.OP ---
Operative Report Date of procedure: May 09, 2021 Pre-op Diagnosis: osteoporotic pathologic wedge Compression fracture of T12 Post-op diagnosis: same Procedure Done: T12 Kyphoplasty Surgeon: Godwin Navarrete Anesthesia: General Estimated blood loss (mL): 5 Condition: stable Disposition: PACU Procedure: Patient was brought to the operative suite. After undergoing anesthesia patient was flipped into the prone position all areas impingement were well-padded. Patient was prepped and draped normal sterile fashion. Skin incision made over the pedicle of T12 on the left as well as right side. Starting awl's were placed into the pedicles of T12 bilaterally. And then the biopsy was taken from the left side biopsy was passed off. And then the drill was passed followed by the balloon bilaterally wounds were inflated and deflated and then the cement was placed. Once the cement was allowed to harden. The tubes removed and AP and lateral fluoroscopy ensured that the cement had good fill and was in good position.
[2021-05-09 09:17] VITALS: BP 118/84; PULSE 103; RESP 15; TEMP 36.6; O2SAT 99
[2021-05-09 09:32] VITALS: BP 134/88; PULSE 99; RESP 16; TEMP 36.6; O2SAT 99
--- NOTE | 2021-05-09 14:39 | ANE.PACU2 ---
Inpatient post-anesthesia follow up: Airway intact: Yes Vital signs: Temperature 97.9 F Pulse Rate 99 Respiratory Rate 16 Blood Pressure 134/88 Pulse Oximetry 99 Oxygen Delivery Me thod Room Air Oxygen Flow Rate 6 Fraction of Inspir ed Oxygen Hydration adequate: Yes Nausea and vomiting: No Pain level: 1 Mental status: Baseline
== END 2021-05-09 09:55 | disposition home or self-care (01) ==
PROVIDERS: Anesthesiology; PCP Nurse Practitioner; Visit Provider Orthopaedic Surgery
PROC: 0PU43JZ Supplement Thoracic Vertebra with Synthetic Substitute, Percutaneous Approach (ICD-10-PCS; CPT 22513; principal; 2021-05-09 08:10)
DX: M54.50 Low back pain, unspecified (principal); S22.081A Stable burst fracture of T11-T12 vertebra, initial encounter for closed fracture; I10 Essential (primary) hypertension; E55.9 Vitamin D deficiency, unspecified; J44.9 Chronic obstructive pulmonary disease, unspecified; F17.210 Nicotine dependence, cigarettes, uncomplicated; Z79.82 Long term (current) use of aspirin; W19.XXXA Unspecified fall, initial encounter
CPT/HCPCS: 22513; 36415; 76000; 80048; 85025; 88307; 88311; 93005; J0690; J2704; J3010; J3490; J7030

== ENCOUNTER → 2021-06-21 11:44 | Outpatient (BNVA) | payer MEDICARE, MEDICAID, SELFPAY | PROVIDERS: PCP Nurse Practitioner; Visit Provider Nurse Practitioner | DX: I10 Essential (primary) hypertension (principal); R63.0 Anorexia; J43.9 Emphysema, unspecified; R79.89 Other specified abnormal findings of blood chemistry; D50.8 Other iron deficiency anemias; M47.819 Spondylosis without myelopathy or radiculopathy, site unspecified; K21.9 Gastro-esophageal reflux disease without esophagitis; F41.9 Anxiety disorder, unspecified; F32.9 Major depressive disorder, single episode, unspecified; K12.2 Cellulitis and abscess of mouth; E55.9 Vitamin D deficiency, unspecified; E78.5 Hyperlipidemia, unspecified | CPT/HCPCS: 80053; 82607; 83540; 84443; 84481; 85025 ==

== ENCOUNTER → 2021-09-20 11:56 | Outpatient (BNVA) | payer MEDICARE, MEDICAID, SELFPAY | PROVIDERS: PCP Nurse Practitioner; Visit Provider Nurse Practitioner | DX: E55.9 Vitamin D deficiency, unspecified (principal); I10 Essential (primary) hypertension; R79.89 Other specified abnormal findings of blood chemistry; R63.0 Anorexia; K12.2 Cellulitis and abscess of mouth; K21.9 Gastro-esophageal reflux disease without esophagitis; J43.9 Emphysema, unspecified; M47.819 Spondylosis without myelopathy or radiculopathy, site unspecified; F41.9 Anxiety disorder, unspecified; F32.9 Major depressive disorder, single episode, unspecified | CPT/HCPCS: 80053; 82306; 82607; 83735; 84439; 84443; 84481; 85025 ==

== ENCOUNTER → 2021-09-27 11:57 | Outpatient (BNVA) | payer MEDICARE, MEDICAID, SELFPAY | PROVIDERS: PCP Nurse Practitioner; Visit Provider Nurse Practitioner | DX: D50.8 Other iron deficiency anemias (principal); R63.0 Anorexia | CPT/HCPCS: 83550 ==

== ENCOUNTER → 2021-11-22 10:22 | Outpatient (BNVA) | payer MEDICARE, MEDICAID, SELFPAY | PROVIDERS: PCP Nurse Practitioner; Visit Provider Nurse Practitioner | DX: D64.9 Anemia, unspecified (principal); I10 Essential (primary) hypertension; R63.0 Anorexia; K12.2 Cellulitis and abscess of mouth; K21.9 Gastro-esophageal reflux disease without esophagitis; J43.9 Emphysema, unspecified; M47.819 Spondylosis without myelopathy or radiculopathy, site unspecified; R79.89 Other specified abnormal findings of blood chemistry; F41.9 Anxiety disorder, unspecified; F32.9 Major depressive disorder, single episode, unspecified | CPT/HCPCS: 80053; 85025 ==

== ENCOUNTER → 2021-12-10 11:29 | Outpatient (BNVA) | payer MEDICARE, MEDICAID, SELFPAY | PROVIDERS: PCP Nurse Practitioner; Visit Provider Nurse Practitioner | DX: D50.9 Iron deficiency anemia, unspecified (principal) | CPT/HCPCS: 82272 ==

== ENCOUNTER → 2021-12-13 10:42 | Outpatient (BNVA) | payer MEDICARE, MEDICAID, SELFPAY | PROVIDERS: PCP Nurse Practitioner; Visit Provider Internal Medicine Cardiovascular Disease | DX: I48.20 Chronic atrial fibrillation, unspecified (principal); I42.8 Other cardiomyopathies; Z79.899 Other long term (current) drug therapy; J43.9 Emphysema, unspecified; R63.6 Underweight; F17.210 Nicotine dependence, cigarettes, uncomplicated; Z68.1 Body mass index [BMI] 19.9 or less, adult | CPT/HCPCS: 93005; 99214 ==

== ENCOUNTER 2021-12-18 10:32 | Outpatient (CLI) | payer MEDICARE, MEDICAID, SELFPAY ==
--- NOTE | 2021-12-18 12:00 | CT_ITS ---
WS: [id number] CT CHEST, ABDOMEN, AND PELVIS TECHNIQUE: Noncontrast CT of the chest, abdomen, and pelvis with coronal and sagittal reformatted della ges. CLINICAL INFORMATION: D64.9 - Anemia, unspecified COMPARISON: None. DLP: All CT scans at [facility] use at least one of these dose optimization techniques: automated e xposure control; mA and/or kV adjustment per patient size (includes targeted exams where dose is matc hed to clinical indication); or iterative reconstruction. CT CHEST: Moderate chronic emphysematous changes. No acute pulmonary infiltrates. No focal pneumonia or pleural fluid. Calcified granuloma LEFT lower lobe. Normal caliber thoracic aorta. Coronary calcification. N o mediastinal or hilar lymphadenopathy. Small esophageal hiatal hernia. No axillary lymphadenopathy. Mild thoracic kyphosis. Disc space narrowing throughout the thoracic spi ne with mild chronic anterior wedging endplate Schmorl's nodes. Vertebroplasty changes with chronic c ompression at T12 with anterior wedging. Mild retropulsion of the posterior superior cortex with mild central canal stenosis. CT ABDOMEN AND PELVIS: Noncontrast CT liver is normal. Adrenal glands are normal. Small esophageal hiatal hernia. Splenic gr anulomas. Fatty atrophy of the pancreas. Adrenal glands are normal. Normal caliber abdominal aorta. M ild aortic calcification. No hydronephrosis in either kidney. Mild diffuse wall thickening involving the sigmoid colon suspicious for mild diverticulitis or coliti s. No evidence of drainable abscess or fluid collection. Tiny amount of surrounding induration. Mild diffuse wall thickening involving the RIGHT hepatic flexure and cecum with luminal narrowing. This quinn s a suspicious appearance and Recommend further evaluation with colonoscopy to exclude underlying les ion. Prior healed fracture deformity RIGHT greater trochanter.Mild compression inferior endplate L3 with m inimal loss vertebral body height. Correlation for low back pain. CT/[place] [id number] IMPRESSION: 1. Moderate chronic emphysematous changes. No acute pulmonary infiltrates. No mediastinal or hilar lymphadenopathy. 2. Mild diffuse wall thickening involving the sigmoid colon can be seen with m ild diverticulitis or colitis. Recommend correlation with infectious symptoms. No fluid collections. 3. In addition, suspicious focal wall thickening with luminal narrowing involv ing the RIGHT hepatic flexure and cecum. Recommend further evaluation with colo noscopy to exclude neoplasm. 4. Mild compression inferior endplate L3 with minimal loss vertebral body heig ht. Correlation for low back pain. This can be further evaluated with MRI to as sess for acuity if indicated. This appears similar to the prior MRI February 27, 2021 5. Chronic vertebroplasty changes with anterior wedging at T12. 6. No other acute findings.
[2021-12-18] MEDS: iohexol 300 mg/mL 50 mL Btl PO (13:00)
== END 2021-12-18 10:33 | disposition home or self-care (01) ==
LOC: RAD 10:33
PROVIDERS: PCP Nurse Practitioner; Visit Provider Nurse Practitioner
DX: D64.9 Anemia, unspecified (principal)
CPT/HCPCS: 71250; 74176

== ENCOUNTER → 2021-12-31 09:20 | Outpatient (BNVA) | payer MEDICARE, MEDICAID, SELFPAY | PROVIDERS: PCP Nurse Practitioner; Referring Provider Nurse Practitioner; Visit Provider Surgery | DX: R93.89 Abnormal findings on diagnostic imaging of other specified body structures (principal) | CPT/HCPCS: 99203 ==

== ENCOUNTER 2022-03-06 08:01 | Day surgery (SDC) | payer MEDICARE, MEDICAID, SELFPAY ==
[2022-03-04 09:58] VITALS: BMI 10.3
[2022-03-06 08:19] VITALS: BP 149/104; PULSE 80; RESP 18; TEMP 36.4; O2SAT 100
[2022-03-06] MEDS: sodium chloride 0.9% 1,000 ML 30 ML IV (08:33)
--- NOTE | 2022-03-06 08:58 | ANES.PREANE2 ---
Pre-Anesthetic Assessment Height/Weight: Height 1.7 m Weight 29.937 kg Temp Pulse Resp BP Pulse Ox O2 Del Method 97.6 F 80 18 149/104 100 03/06/22 08:19 03/06/22 08:19 03/06/22 08:19 03/06/22 08:19 03/06/22 08:19 03/06/22 08:19 Preop Diagnosis: osteoporotic pathologic wedge Compression fracture of T12 Operation Date: 03/06/22 09:30 Proposed Procedures p Colonoscopy 41230,K63.9(Not Applicable) - Warner Corrales DO Familial anesthetic complications: none Was Beta Clemente taken within 24 hours: Yes Was Clonidine taken within 24 hours: N/A Last intake: Intake Last Liquid Date 03/05/22 Last Liquid Time 21:00 Last Solid Date 03/05/22 Last Solid Time 07:00 Social Alcohol and Tobacco Exam alert, oriented x 3, clear to auscultation bilaterally and regular rate & rhythm Airway Mallampati: Class II Dentition: false Pulmonary Chronic Obstructive Pulmonary Disease CV/HEM Anemia, Arrythmia, Congestive Heart Failure and Hypertension Metabolic frail, underweight Musc/skel Lower Back Pain Anesthetic Plan ASA status: 3 Anesthesia: MAC Risk of > 500 ml blood loss (7ml/kg in children): No Medications/Allergies Home Medications Medication Instructions Recorded Confirmed Last Taken Type potassium 99 mg tablet 99 mg PO DAILY 08/16/20 03/06/22 03/05/22 History albuterol sulfate 2.5 mg (3 mL) inhalation Q6H PRN 10/31/20 03/06/22 03/05/22 Rx shortness of breath or wheezing #180 mL TLSO back brace #1 ea 06/07/21 12/31/21 Unknown Rx amiodarone 200 mg tablet 100 mg PO DAILY #45 tabs 09/25/21 03/06/22 03/06/22 06:30 Rx clonidine HCl 0.1 mg tablet 0.1 mg PO BID PRN hypertensive 11/21/21 03/06/22 03/05/22 Rx emergency #180 tabs aspirin 81 mg tablet,delayed 81 mg PO BID #180 tabs 11/22/21 03/06/22 03/05/22 Rx release atorvastatin 10 mg tablet (Lipitor) 10 mg PO DAILY #90 tabs 11/22/21 03/06/22 03/05/22 Rx calcium carbonate 500 mg-vitamin 2 tab PO BID #360 tabs 11/22/21 03/06/22 03/05/22 Rx D3 5 mcg (200 unit) tablet (Os-Vitor 500 + D3) famotidine 20 mg tablet 20 mg PO BID #180 tabs 11/22/21 03/06/22 03/05/22 Rx fluticasone propionate 110 2 puff inhalation Q12H #12 grams 11/22/21 03/06/22 03/05/22 Rx mcg/actuation HFA aerosol inhaler (Flovent HFA) folic acid 1 mg tablet 1 mg PO DAILY #90 tabs 11/22/21 03/06/22 03/05/22 Rx levalbuterol tartrate 45 2 inh inhalation Q6H PRN shortness 11/22/21 03/06/22 03/05/22 Rx mcg/actuation aerosol inhaler of breath or wheezing #15 grams (Xopenex HFA) liothyronine 5 mcg tablet (Cytomel) 20 mcg PO DAILY #120 tabs 11/22/21 03/06/22 03/05/22 Rx lisinopril 10 mg tablet 10 mg PO DAILY #90 tabs 11/22/21 03/06/22 03/05/22 Rx umeclidinium 62.5 mcg-vilanterol 1 inh inhalation Q24H #60 ea 11/22/21 03/06/22 03/05/22 Rx 25 mcg/actuation powdr for inhalation (Anoro Ellipta) venlafaxine 75 mg capsule,extended 75 mg PO DAILY #90 caps 11/22/21 03/06/22 03/05/22 Rx release 24 hr (Effexor XR) Lactobacillus rhamnosus GG 20 See Rx Instructions PO .2 times 12/18/21 03/06/22 03/05/22 Rx billion cell capsule (Probiotic day #60 caps [facility]) amoxicillin 250 mg-potassium 5 ml PO Q12H #100 mL 12/18/21 03/06/22 03/05/22 Rx clavulanate 62.5 mg/5 mL oral suspension (Augmentin) chlorhexidine gluconate 0.12 % 15 ml buccal BID #600 mL 01/04/22 03/06/22 03/05/22 Rx mouthwash (Peridex) doxepin 25 mg capsule 25 mg PO TID #90 caps 02/17/22 03/06/22 03/05/22 Rx carvedilol 3.125 mg tablet 3.125 mg PO DAILY 03/04/22 03/06/22 03/06/22 06:30 History gabapentin 300 mg capsule 300 mg PO TID PRN Pain 03/04/22 03/06/22 03/05/22 History Allergies Allergy/AdvReac Type Severity Reaction Status Date / Time No Known Allergies Allergy Verified 03/06/22 08:21 Current Medications Generic Name Dose Route Start Last Admin Trade Name Freq PRN Reason Stop Dose Admin Sodium Chloride 1,000 mls @ 30 mls/hr 03/06/22 08:15 03/06/22 08:33 Sodium Chloride 0.9% IV 03/07/22 08:14 30 mls/hr .Q24H BARRIE Administration PFSH Anesthesia Medical History Acid reflux Alcohol dependence, daily use 1-2 beer daily Anorexia Anxiety and depression Burst fracture of T12 vertebra Chronic episodic atrial fibrillation Patient is not on oral anticoagulant because of the GI bleed. 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 Dyslipidemia Essential (primary) hypertension High risk medication use Low serum triiodothyronine (T3) Non-ischemic cardiomyopathy Personal history of nicotine dependence Smoking addiction Underweight Vitamin D deficiency Surgical History History of colonoscopy 2016 History of esophagogastroduodenoscopy (EGD) (~2017) History of kyphoplasty Family History Mother Cancer Brother Heart disease CAD (coronary artery disease) Grandmother Diabetes CAD (coronary artery disease) Cancer Denies family history of Clotting disorder Dementia Chronic kidney disease (CKD) Suicide Anesthesia complication Bleeding disorder Lung disease Stroke Social History Smoking and tobacco status: current every day smoker cigarettes Second hand smoke exposure: No Smoking risk assessment/counseling performed?: Yes Alcohol intake: current Alcohol intake frequency: holidays/special occasions only Desire information about alcohol rehabilitation?: No Counseling given: No Desire information about substance/drug rehabilitation?: No Counseling given: No Adopted: No Caregiver/support person: No Lives independently: Yes Household members: family Housing: House Marital status: Single service: No Current occupational status: unemployed Pets and animals: Yes History of recent travel: No Current gender identity: Female Data Anesthesia Cardiac Studies: Echocardiogram Ultrasound 05/08/21
--- NOTE | 2022-03-06 09:00 | P.HP_ITS ---
Providers/Chief Complaint Primary Care Provider: GABI Faustin Chief Complaint: disease of intestine, unspecified History of Present Illness Nunu Mccoy is a 46 year old female presents for colonoscopy for thickening of the ascending and descending colon seen on CT. She also had a colonoscopy 5 years ago in which 2 polyps were removed. Review of Systems General: Reports: 10 or more systems reviewed and unremarkable except in HPI and below Medications/Allergies Home Medications Medication Instructions Recorded Confirmed Last Taken Type potassium 99 mg tablet 99 mg PO DAILY 08/16/20 03/06/22 03/05/22 History albuterol sulfate 2.5 mg (3 mL) inhalation Q6H PRN 10/31/20 03/06/22 03/05/22 Rx shortness of breath or wheezing #180 mL TLSO back brace #1 ea 06/07/21 12/31/21 Unknown Rx amiodarone 200 mg tablet 100 mg PO DAILY #45 tabs 09/25/21 03/06/22 03/06/22 06:30 Rx clonidine HCl 0.1 mg tablet 0.1 mg PO BID PRN hypertensive 11/21/21 03/06/22 03/05/22 Rx emergency #180 tabs aspirin 81 mg tablet,delayed 81 mg PO BID #180 tabs 11/22/21 03/06/22 03/05/22 Rx release atorvastatin 10 mg tablet (Lipitor) 10 mg PO DAILY #90 tabs 11/22/21 03/06/22 03/05/22 Rx calcium carbonate 500 mg-vitamin 2 tab PO BID #360 tabs 11/22/21 03/06/22 03/05/22 Rx D3 5 mcg (200 unit) tablet (Os-Vitor 500 + D3) famotidine 20 mg tablet 20 mg PO BID #180 tabs 11/22/21 03/06/22 03/05/22 Rx fluticasone propionate 110 2 puff inhalation Q12H #12 grams 11/22/21 03/06/22 03/05/22 Rx mcg/actuation HFA aerosol inhaler (Flovent HFA) folic acid 1 mg tablet 1 mg PO DAILY #90 tabs 11/22/21 03/06/22 03/05/22 Rx levalbuterol tartrate 45 2 inh inhalation Q6H PRN shortness 11/22/21 03/06/22 03/05/22 Rx mcg/actuation aerosol inhaler of breath or wheezing #15 grams (Xopenex HFA) liothyronine 5 mcg tablet (Cytomel) 20 mcg PO DAILY #120 tabs 11/22/21 03/06/22 03/05/22 Rx lisinopril 10 mg tablet 10 mg PO DAILY #90 tabs 11/22/21 03/06/22 03/05/22 Rx umeclidinium 62.5 mcg-vilanterol 1 inh inhalation Q24H #60 ea 11/22/21 03/06/22 03/05/22 Rx 25 mcg/actuation powdr for inhalation (Anoro Ellipta) venlafaxine 75 mg capsule,extended 75 mg PO DAILY #90 caps 11/22/21 03/06/22 03/05/22 Rx release 24 hr (Effexor XR) Lactobacillus rhamnosus GG 20 See Rx Instructions PO .2 times 12/18/21 03/06/22 03/05/22 Rx billion cell capsule (Probiotic day #60 caps [facility]) amoxicillin 250 mg-potassium 5 ml PO Q12H #100 mL 12/18/21 03/06/22 03/05/22 Rx clavulanate 62.5 mg/5 mL oral suspension (Augmentin) chlorhexidine gluconate 0.12 % 15 ml buccal BID #600 mL 01/04/22 03/06/22 03/05/22 Rx mouthwash (Peridex) doxepin 25 mg capsule 25 mg PO TID #90 caps 02/17/22 03/06/22 03/05/22 Rx carvedilol 3.125 mg tablet 3.125 mg PO DAILY 03/04/22 03/06/22 03/06/22 06:30 H istory gabapentin 300 mg capsule 300 mg PO TID PRN Pain 03/04/22 03/06/22 03/05/22 History Allergies Allergy/AdvReac Type Severity Reaction Status Date / Time No Known Allergies Allergy Verified 03/06/22 08:21 PFSH Acute PFSH: Medical History Acid reflux Alcohol dependence, daily use 1-2 beer daily Anorexia Anxiety and depression Burst fracture of T12 vertebra Chronic episodic atrial fibrillation Patient is not on oral anticoagulant because of the GI bleed. 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 Dyslipidemia Essential (primary) hypertension High risk medication use Low serum triiodothyronine (T3) Non-ischemic cardiomyopathy Personal history of nicotine dependence Smoking addiction Underweight Vitamin D deficiency Surgical History History of colonoscopy 2016 History of esophagogastroduodenoscopy (EGD) (~2017) History of kyphoplasty Family History Mother Cancer Brother Heart disease CAD (coronary artery disease) Grandmother Diabetes CAD (coronary artery disease) Cancer Denies family history of Clotting disorder Dementia Chronic kidney disease (CKD) Suicide Anesthesia complication Bleeding disorder Lung disease Stroke Social History Smoking and tobacco status: current every day smoker cigarettes Second hand smoke exposure: No Smoking risk assessment/counseling performed?: Yes Alcohol intake: current Alcohol intake frequency: holidays/special occasions only Desire information about alcohol rehabilitation?: No Counseling given: No Desire information about substance/drug rehabilitation?: No Counseling given: No Adopted: No Caregiver/support person: No Lives independently: Yes Household members: family Housing: House Marital status: Single service: No Current occupational status: unemployed Pets and animals: Yes History of recent travel: No Current gender identity: Female Vitals/I&O/Wt Last Vital Signs Temp 97.6 F 03/06/22 08:19 Pulse 80 03/06/22 08:19 Resp 18 03/06/22 08:19 BP 149/104 03/06/22 08:19 Pulse Ox 100 03/06/22 08:19 O2 Del Method 03/06/22 08:19 Weight last 48 hrs Weight 66 lb Physical Exam Narrative: General : Patient is well developed , no acute distress, oriented x3 Head : Normal cephalic, a-traumatic. Ears : Pinnae and external canal are normal. Hearing is normal. Eyes : PERRLA, Sclera and injection are normal. No conjunctival discharge. Nose : Mucous membranes are without erythema. Throat : buccal mucosa is normal, gums are without significant recession or hypertrophy. Lungs : Equal chest rise bilaterally, no use of accessory muscles, trachea is midline. Cor : Rate and rhythm are normal. Abdomen : Soft, ND, NT, no g/r/m Extremities : No edema, no cyanosis or clubbing, dorsalis pedis pulses are present bilaterally, non-tender to palpation of calves. Upper extremities are normal bilaterally. Back : non-tender to palpation, no CVA tenderness. Neuro : CN II - XII intact, Upper and lower extremities have equal and full strength A&P Assessment and plan (1) Abnormal CT of the abdomen: Status: Acute (2) History of colon polyps: Status: Acute Plan Colonoscopy The risks and benefits of the procedure, including bleeding, infection, intestinal perforation requiring surgery, missed lesion, or explained to the patient. She is understanding of the risks and wishes to proceed. Attestations Medical Necessity Statement*: Patient will go home Coding Level of Care Code Acute Chief Minister for Mercedes Short Diagnoses Abnormal CT of the abdomen R93.5 History of colon polyps Z86.010
[2022-03-06 10:19] VITALS: BP 131/99; PULSE 75; RESP 18; TEMP 36.1; O2SAT 100
[2022-03-06 10:30] VITALS: BP 130/100; PULSE 80; RESP 18; O2SAT 100
--- NOTE | 2022-03-06 12:14 | ANE.PACU2 ---
Inpatient post-anesthesia follow up: Airway intact: Yes Vital signs: Temperature 97.0 F Pulse Rate 80 Respiratory Rate 18 Blood Pressure 130/100 Pulse Oximetry 100 Oxygen Delivery Me thod Room Air Oxygen Flow Rate 3 Fraction of Inspir ed Oxygen Hydration adequate: Yes Nausea and vomiting: No Pain level: 1 Mental status: Baseline
== END 2022-03-06 10:45 | disposition home or self-care (01) ==
PROVIDERS: PCP Nurse Practitioner; Visit Provider Surgery
PROC: 0DJD8ZZ Inspection of Lower Intestinal Tract, Via Natural or Artificial Opening Endoscopic (ICD-10-PCS; CPT 45378; principal; 2022-03-06 09:30)
DX: D12.2 Benign neoplasm of ascending colon (principal); K21.9 Gastro-esophageal reflux disease without esophagitis; I11.9 Hypertensive heart disease without heart failure; I50.9 Heart failure, unspecified; I48.20 Chronic atrial fibrillation, unspecified; E78.5 Hyperlipidemia, unspecified; J44.9 Chronic obstructive pulmonary disease, unspecified; F17.210 Nicotine dependence, cigarettes, uncomplicated; Z86.010 Personal history of colon polyps; Z79.82 Long term (current) use of aspirin; Z79.51 Long term (current) use of inhaled steroids
CPT/HCPCS: 45380; 82274; 83630; 87493; 87506; 88305; J2704; J7030

== ENCOUNTER → 2022-03-22 11:29 | Outpatient (BNVA) | payer MEDICARE, MEDICAID, SELFPAY | PROVIDERS: PCP Nurse Practitioner; Visit Provider Surgery | DX: Z09 Encounter for follow-up examination after completed treatment for conditions other than malignant neoplasm (principal); K52.831 Collagenous colitis | CPT/HCPCS: 99212 ==

== ENCOUNTER → 2022-04-16 14:00 | Outpatient (BNVA) | payer MEDICARE, MEDICAID, SELFPAY | PROVIDERS: PCP Nurse Practitioner; Visit Provider Nurse Practitioner | DX: I10 Essential (primary) hypertension (principal); R79.89 Other specified abnormal findings of blood chemistry | CPT/HCPCS: 80053; 80061; 84439; 84443; 84481; 85025 ==

== ENCOUNTER → 2022-04-17 08:40 | Outpatient (BNVA) | payer MEDICARE, MEDICAID, SELFPAY | PROVIDERS: PCP Nurse Practitioner; Visit Provider Nurse Practitioner | DX: I10 Essential (primary) hypertension (principal); R63.0 Anorexia; K12.2 Cellulitis and abscess of mouth; J43.9 Emphysema, unspecified; K21.9 Gastro-esophageal reflux disease without esophagitis; K57.32 Diverticulitis of large intestine without perforation or abscess without bleeding; R79.89 Other specified abnormal findings of blood chemistry; J44.9 Chronic obstructive pulmonary disease, unspecified; F41.9 Anxiety disorder, unspecified; D50.8 Other iron deficiency anemias; F32.9 Major depressive disorder, single episode, unspecified | CPT/HCPCS: 82607; 83540 ==

== ENCOUNTER → 2022-05-29 10:45 | Outpatient (BNVA) | payer MEDICARE, MEDICAID, SELFPAY | PROVIDERS: PCP Nurse Practitioner; Visit Provider Nurse Practitioner | DX: I95.9 Hypotension, unspecified (principal); N18.30 Chronic kidney disease, stage 3 unspecified | CPT/HCPCS: 80053; 85025 ==

== ENCOUNTER → 2022-06-13 10:46 | Outpatient (BNVA) | payer MEDICARE, MEDICAID, SELFPAY | PROVIDERS: PCP Nurse Practitioner; Visit Provider Internal Medicine Cardiovascular Disease | DX: I42.8 Other cardiomyopathies (principal); I48.20 Chronic atrial fibrillation, unspecified; I12.9 Hypertensive chronic kidney disease with stage 1 through stage 4 chronic kidney disease, or unspecified chronic kidney disease; N18.30 Chronic kidney disease, stage 3 unspecified; Z79.899 Other long term (current) drug therapy; E78.5 Hyperlipidemia, unspecified; J43.9 Emphysema, unspecified; F17.210 Nicotine dependence, cigarettes, uncomplicated | CPT/HCPCS: 99214 ==

== ENCOUNTER → 2022-06-19 11:27 | Outpatient (BNVA) | payer MEDICARE, MEDICAID, SELFPAY | PROVIDERS: PCP Nurse Practitioner; Visit Provider Nurse Practitioner | DX: F10.20 Alcohol dependence, uncomplicated (principal); R63.0 Anorexia | CPT/HCPCS: 80053; 85025 ==

== ENCOUNTER 2022-09-04 14:06 | Oncology outpatient (recurring) (ONCR) | payer MEDICARE, MEDICAID, SELFPAY | END 2022-09-04 14:07 | disposition still patient (30) | LOC: ONCMED 14:07 | PROVIDERS: PCP Nurse Practitioner; Visit Provider Internal Medicine Medical Oncology | DX: Z53.9 Procedure and treatment not carried out, unspecified reason (principal) ==

== ENCOUNTER 2022-09-05 07:55 | Oncology outpatient (recurring) (ONCR) | payer MEDICARE, MEDICAID, SELFPAY ==
[2022-09-05 09:42] LABS: Basophils # 0.1 10^3/uL (0.0-0.1); Basophils % 0.7 %; Eosinophils # 0.1 10^3/uL (0.0-0.8); Eosinophils % 1.3 %; Hematocrit 28.3 % (37.0-47.0); Hemoglobin 9.5 g/dL (11.5-15.3); Lymphocytes # 1.7 10^3/uL (0.8-4.8); Mean Corpuscular HGB Conc 33.6 g/dL (30.0-36.0); Mean Corpuscular Hemoglobin 31.6 pg (28.0-34.0); Mean Platelet Volume 9.3 fL (7.4-10.4); Monocytes # 0.5 10^3/uL (0.2-0.9); Neutrophils % 65.6 %; Nucleated Red Blood Cells % 0 %; Platelet Count 282 10^3/cmm (130-400); Red Blood Count 3.01 10^6/uL (4.1-5.3); Red Cell Distribution Width 15.9 % (12.1-15.1); White Blood Count 6.7 10^3/uL (4.0-10.0)
[2022-09-05 09:54] LABS: Reticulocyte % 1.4 % (0.5-2.0)
[2022-09-05 09:56] LABS: Erythrocyte Sedimentation Rate 9 mm/hr (0-15)
[2022-09-05 10:00] LABS: Alanine Aminotransferase 15 U/L (0-33); Alkaline Phosphatase 145 U/L (35-105); Aspartate Amino Transferase 33 U/L (0-32); Blood Urea Nitrogen 6 mg/dL (6-20); Calcium 8.4 mg/dL (8.5-10.5); Carbon Dioxide 26 mmol/L (22-29); Chloride 93 mmol/L (98-107); Ferritin 16 ng/mL (15-150); Globulin 3.4 g/dL (1.3-4.6); Glomerular Filtration Rate 53.2 mL/min (90-130); Glucose 82 mg/dL (65-115); Iron 64 ug/dL (37-145); Osmolality Calculated 269 mOsm/kg (285-295); Percent Saturation 25.6 % (20-50); Sodium 131 mmol/L (136-145); Total Bilirubin 0.3 mg/dL (0.15-1.2); Total Iron Binding Capacity 250 mcg/dl; Total Protein 6.4 g/dL (6.6-8.7); Unsaturated Iron Binding 186 ug/dL (112-347)
[2022-09-05 10:02] LABS: Anion Gap 15.6 (5-19); Lactate Dehydrogenase 236 U/L (135-214); Potassium 3.6 mmol/L (3.5-5.1)
[2022-09-05 10:31] LABS: Folate Level > 20.0 ng/mL (4.8-37.3)
[2022-09-05 10:42] LABS: LAB Peripheral Smear Sent for Review
[2022-09-06 07:34] LABS: PROTEIN, TOTAL 6.1 g/dL (6.1-8.1)
[2022-09-06 13:20] LABS: KAPPA LIGHT CHAIN, FREE, SERUM 74.8 mg/L (3.3-19.4); LAMBDA LIGHT CHAIN, FREE, SERU 74.6 mg/L (5.7-26.3)
[2022-09-06 14:05] LABS: ALPHA 1 GLOBULIN 0.4 g/dL (0.2-0.3); ALPHA 2 GLOBULIN 0.6 g/dL (0.5-0.9); BETA 1 GLOBULIN 0.4 g/dL (0.4-0.6); BETA 2 GLOBULIN 0.4 g/dL (0.2-0.5); GAMMA GLOBULIN 1.2 g/dL (0.8-1.7)
== END 2022-10-04 23:59 | disposition home or self-care (01) ==
LOC: ONCMED 07:56
PROVIDERS: PCP Nurse Practitioner; Visit Provider Internal Medicine Medical Oncology
DX: D64.9 Anemia, unspecified (principal); F17.210 Nicotine dependence, cigarettes, uncomplicated
CPT/HCPCS: 36415; 80053; 82728; 82746; 83010; 83540; 83550; 83615; 83883; 84155; 84165; 85025; 85045; 85651; 86140; 99204; 99205

== ENCOUNTER → 2022-09-20 09:44 | Outpatient (BNVA) | payer MEDICARE, MEDICAID, SELFPAY | PROVIDERS: PCP Nurse Practitioner; Referring Provider Nurse Practitioner; Visit Provider Otolaryngology | DX: R13.10 Dysphagia, unspecified (principal); K21.9 Gastro-esophageal reflux disease without esophagitis; B37.0 Candidal stomatitis; F17.200 Nicotine dependence, unspecified, uncomplicated | CPT/HCPCS: 31575; 99203 ==

== ENCOUNTER → 2022-10-04 10:40 | Outpatient (BNVA) | payer MEDICARE, MEDICAID, SELFPAY | PROVIDERS: PCP Nurse Practitioner; Visit Provider Otolaryngology | DX: K13.79 Other lesions of oral mucosa (principal); B37.0 Candidal stomatitis; R13.10 Dysphagia, unspecified; K21.9 Gastro-esophageal reflux disease without esophagitis; F17.200 Nicotine dependence, unspecified, uncomplicated | CPT/HCPCS: 42100; 99213 ==

== ENCOUNTER 2022-10-04 23:27 | Emergency (ER) | payer MEDICARE, MEDICAID, SELFPAY ==
[2022-10-04 23:28] VITALS: BP 124/92; PULSE 92; RESP 18; TEMP 36.6; O2SAT 100
[2022-10-05] VITALS (37 sets, daily range): BP systolic 128–160; BP diastolic 75–121; PULSE 79–131; RESP 11–24; TEMP 36.6–36.7; O2SAT 95–100
[2022-10-05 00:04] LABS: Basophils % 0.4 %; Eosinophils % 0.4 %; Lymphocytes # 1.5 10^3/uL (0.8-4.8); Lymphocytes % 17.4 %; Mean Corpuscular HGB Conc 31.9 g/dL (30.0-36.0); Mean Corpuscular Hemoglobin 31.4 pg (28.0-34.0); Mean Corpuscular Volume 98.5 fl (81-99); Mean Platelet Volume 9.6 fL (7.4-10.4); Monocytes # 0.5 10^3/uL (0.2-0.9); Monocytes % 5.6 %; Neutrophils # 6.35 10^3/uL (1.8-7.7); Neutrophils % 75.8 %; Nucleated Red Blood Cells % 0 %; Platelet Count 209 10^3/cmm (130-400); Red Blood Count 1.94 10^6/uL (4.1-5.3); Red Cell Distribution Width 16.1 % (12.1-15.1); White Blood Count 8.4 10^3/uL (4.0-10.0)
[2022-10-05 00:05] LABS: Hematocrit 19.1 % (37.0-47.0); Hemoglobin 6.1 g/dL (11.5-15.3)
[2022-10-05] MEDS: silver nitrate applicator 4 EACH TOPICAL (00:09)
[2022-10-05] MEDS: cetacaine Spray 20 gm Can 1 SPRAY TOPICAL (00:09)
[2022-10-05] MEDS: sodium chloride 0.9% 1,000 ML 999 ML IV (00:09)
[2022-10-05 00:12] LABS: Partial Thromboplastin Time 28.7 SECONDS (23.9-36.7)
[2022-10-05 00:23] LABS: Alanine Aminotransferase 11 U/L (0-33); Albumin Level 2.4 g/dL (3.5-5.2); Alkaline Phosphatase 89 U/L (35-105); Blood Urea Nitrogen 10 mg/dL (6-20); Calcium 7.5 mg/dL (8.5-10.5); Carbon Dioxide 25 mmol/L (22-29); Chloride 101 mmol/L (98-107); Globulin 2.5 g/dL (1.3-4.6); Glomerular Filtration Rate 40.1 mL/min (90-130); Glucose 83 mg/dL (65-115); Osmolality Calculated 274 mOsm/kg (285-295); Sodium 133 mmol/L (136-145); Total Bilirubin 0.2 mg/dL (0.15-1.2); Total Protein 4.9 g/dL (6.6-8.7)
[2022-10-05 00:29] LABS: Anion Gap 11.9 (5-19); Aspartate Amino Transferase 27 U/L (0-32); Potassium 4.9 mmol/L (3.5-5.1)
[2022-10-05] MEDS: diphenhydrAMINE 50 mg/mL SDV 1mL 12.5 MG IVP (01:17)
--- NOTE | 2022-10-05 01:57 | ED_ITS ---
Documented by User: Irving Monteiro DO 10/05/22 20:05 HPI - GI Bleed General: Chief complaint: GI Bleed Stated complaint: THROAT BLEEDING Time Seen by Provider: 10/04/22 23:32 History of Present Illness: 47-year-old female who is significantly underweigh t. She was seen in ENT clinic and had a biopsy done of her pharynx today. She notes that she bled significantly during the procedure, but bleeding is stopped on discharge from the clinic. She says that after eating, she began to bleed again, and is swallowed quite a bit of blood. She also says that she threw up blood with clots prior to coming in by ambulance. She gives a history of almost passing out during this episode. She denies any chest pain or shortness of breath. She does complain of throat pain since her procedure. Bleeding seems to have slowed or stopped. MD complaint: gross hematemesis Onset (ago): hour(s) Pain Consistency: now resolved Severity: moderate Relieving factors: none Exacerbating factors: eating and other Associated symptoms: Reports vomiting; Denies abdominal pain, easy bruising, epistaxis, fever(s), headache(s), other bleeding or poor appetite Treatments Prior to Arrival: none Review of Systems Const: Denies: fever(s) Eyes: Denies: change in vision ENMT: Reports: throat pain, odynophagia and oral sores; Denies: hoarseness, nasal congestion or epistaxis Card: Denies: chest pain Resp: Denies: dyspnea GI: Reports: vomiting; Denies: abdominal pain Neuro: Denies: headache(s) Raudel/Lymph: Denies: easy bruising [facility] ED PFSH: Medical History Acid reflux Alcohol dependence, daily use 1-2 beer daily Anorexia Anxiety and depression Burst fracture of T12 vertebra Chronic episodic atrial fibrillation Patient is not on oral anticoagulant because of the GI bleed. 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 Dyslipidemia Essential (primary) hypertension High risk medication use Low serum triiodothyronine (T3) Non-ischemic cardiomyopathy Personal history of nicotine dependence Underweight Vitamin D deficiency Surgical History History of colonoscopy 2017 History of esophagogastroduodenoscopy (EGD) (~2017) History of kyphoplasty Family History Mother Cancer Brother Heart disease CAD (coronary artery disease) Grandmother Diabetes CAD (coronary artery disease) Cancer Denies family history of Clotting disorder Dementia Chronic kidney disease (CKD) Suicide Anesthesia complication Bleeding disorder Lung disease Stroke Social History Smoking and tobacco status: current every day smoker cigarettes Packs smoked per day: 1 Second hand smoke exposure: No Smoking risk assessment/counseling performed?: Yes Alcohol intake: current Alcohol intake frequency: 3 or more drinks per day Alcohol type: beer Desire information about alcohol rehabilitation?: No Counseling given: No Desire information about substance/drug rehabilitation?: No Counseling given: No Adopted: No Caregiver/support person: No Lives independently: Yes Household members: family Housing: House Marital status: Single service: No Current occupational status: unemployed Pets and animals: Yes Current gender identity: Female Physical Exam Const: GENERAL APPEARANCE: cooperative, ill appearing and frail appearing NUTRITIONAL APPEARANCE: cachectic HENMT: COMMON NORMALS: normocephalic, atraumatic and Normal external nose present HEAD & SCALP: normocephalic and atraumatic FACE & SINUS: normal facial exam and face symmetric NOSE: Normal external nose present THROAT: posterior oropharynx abnormal (biopsy lesion, partially covered with escar. open inferior no active bleed) Eye: COMMON NORMALS: Equal, round and reactive pupils present and EOMs intact bilaterally PUPIL: Yes Equal, round and reactive pupils present Neck/C-Spine: GENERAL: Yes trachea midline Chest: CHEST: Yes Symmetrical chest wall rise Resp: COMMON NORMALS: normal respiratory effort, No retractions, No use of accessory muscles and clear to auscultation bilaterally AUSCULTATION: clear to auscultation bilaterally Cardio: COMMON NORMALS: regular rate and regular rhythm RATE: regular rate RHYTHM: regular rhythm GI: COMMON NORMALS: Normal to inspection, nondistended, normoactive bowel sounds present Extremity: COMMON NORMALS: no pedal edema Neuro: [place] COMA SCALE: document GCS findings [place] coma scale eye opening: Spontaneous [place] coma scale verbal response: Orientated [place] coma scale motor response: Obey commands [place] coma scale total score: 15 SENSORY EXAM: Yes extremities (intact) Psych: COMMON NORMALS: speech normal SPEECH: Yes normal speech Skin: COMMON NORMALS: no rashes or lesions noted GENERAL SKIN EXAM: no rashes or lesions noted Course Vital Signs: Vital signs: Vital Signs Temperature 98.0 F 10/05/22 04:22 Pulse Rate 95 10/05/22 11:30 Respiratory Rate 24 H 10/05/22 11:30 Blood Pressure 150/101 10/05/22 11:30 Pulse Oximetry 98 10/05/22 11:30 Oxygen Delivery Me thod 10/05/22 07:03 MDM - GI Bleed Medical Decision Making 47-year-old female bleeding from biopsy site in the posterior pharynx. No active bleeding currently. Site is partially covered with eschar, but is open inferiorly. Patient was given Cetacaine spray for topical anesthetic. Following this silver nitrate was used to cauterize the open inferior area of the biopsy site. She tolerated this without complication. There has been no further bleeding. Her hemoglobin is 6.1. It was 9.53 weeks ago. Platelet count is normal. Creatinine is 1.4 BUN is normal. Blood type is O+. She will get 2 units crossmatched here. Her vitals are stable. Patient is on her way through her second unit of blood currently. Between transfusions, the patient had a large bloody bowel movement. There was gross red blood in the stool as well as some partially digested blood. This does not give the suggestion of digested blood from a throat bleed at all. CTA was performed from the chest through the pelvis looking for an active bleed otherwise, since there has been no active bleeding from the throat lesion. No extra visitation was noted, but there is significant blood in the descending colon that could be a source of bleeding per radiology. I spoke with her surgeon. We do not have scope capability here to manage brisk upper or lower GI bleeding. I have a call out to [facility] in [place] as they have gastroenterology services there. Awaiting a callback. She is also receiving Cipro and Flagyl for the colitis noted on CT scan. She has received 80 mg of IV Protonix as well. Lab Data 10/04/22 23:50 10/04/22 23:50 Radiology Impressions Chest/Abdomen/Pelvis CTA 10/05/22 04:32 IMPRESSION: 1. Subtle focal areas of increased attenuation within the descending colon on series 13 images 30 through 50. Findings may represent ingested material however can not exclude active GI bleed. Correlate and follow-up as clinically indicated. 2. Subtle ground-glass reticulonodular opacities are seen scattered throughout the lung magana, suggestive of respiratory bronchiolitis. 3. The womack of the sigmoid colon and rectum appear thickened and edematous with mild hyperenhancement of the mucosa. Findings are suggestive of colitis, correlate and follow-up as clinically indicated. 4. The gastric womack and loss of the distal esophagus appear thickened, this finding can be associated with gastritis however other etiologies including malignancy can not be excluded. Correlate and follow-up as clinically indicated. 5. Other multiple chronic/incidental findings as described above. The findings were verbally communicated via telephone conference with Dr. Monteiro at 6:15 AM CDT on 10/05/2022. The findings were acknowledged and understood. Laboratory Results WBC 8.4 10^3/uL (4.0-10.0) 10/04/22 23:50 RBC 1.94 10^6/uL (4.1-5.3) L 10/04/22 23:50 Hgb 9.4 g/dL (11.5-15.3) L D 10/05/22 09:32 Hct 19.1 % (37.0-47.0) L* 10/04/22 23:50 MCV 98.5 fl (81-99) 10/04/22 23:50 MCH 31.4 pg (28.0-34.0) 10/04/22 23:50 MCHC 31.9 g/dL (30.0-36.0) 10/04/22 23:50 RDW 16.1 % (12.1-15.1) H 10/04/22 23:50 Plt Count 209 10^3/cmm (130-400) 10/04/22 23:50 MPV 9.6 fL (7.4-10.4) 10/04/22 23:50 Neut % (Auto) 75.8 % 10/04/22 23:50 Lymph % (Auto) 17.4 % 10/04/22 23:50 [place] % (Auto) 5.6 % 10/04/22 23:50 Eos % (Auto) 0.4 % 10/04/22 23:50 Baso % (Auto) 0.4 % 10/04/22 23:50 Neut # (Auto) 6.35 10^3/uL (1.8-7.7) 10/04/22 23:50 Lymph # (Auto) 1.5 10^3/uL (0.8-4.8) 10/04/22 23:50 [place] # (Auto) 0.5 10^3/uL (0.2-0.9) 10/04/22 23:50 Eos # (Auto) 0.0 10^3/uL (0.0-0.8) 10/04/22 23:50 Baso # (Auto) 0.0 10^3/uL (0.0-0.1) 10/04/22 23:50 Nucleated RBC % (auto) 0 % 10/04/22 23:50 Nucleated RBCs # 0.0 /100WBC 10/04/22 23:50 PT 15.60 SECONDS (12.1-14.9) H 10/04/22 23:50 INR 1.20 (0.8-1.2) 10/04/22 23:50 APTT 28.7 SECONDS (23.9-36.7) 10/04/22 23:50 Sodium 133 mmol/L (136-145) L 10/04/22 23:50 Potassium 4.9 mmol/L (3.5-5.1) 10/04/22 23:50 Chloride 101 mmol/L (98-107) 10/04/22 23:50 Carbon Dioxide 25 mmol/L (22-29) 10/04/22 23:50 Anion Gap 11.9 (5-19) 10/04/22 23:50 BUN 10 mg/dL (6-20) 10/04/22 23:50 Creatinine 1.4 mg/dL (0.5-0.9) H 10/04/22 23:50 GFR Calculation 40.1 mL/min (90-130) L 10/04/22 23:50 Glucose 83 mg/dL (65-115) 10/04/22 23:50 Calculated Osmolality 274 mOsm/kg (285-295) L 10/04/22 23:50 Calcium 7.5 mg/dL (8.5-10.5) L 10/04/22 23:50 Total Bilirubin 0.2 mg/dL (0.15-1.2) 10/04/22 23:50 AST 27 U/L (0-32) 10/04/22 23:50 ALT 11 U/L (0-33) 10/04/22 23:50 Alkaline Phosphatase 89 U/L (35-105) 10/04/22 23:50 Total Protein 4.9 g/dL (6.6-8.7) L 10/04/22 23:50 Albumin 2.4 g/dL (3.5-5.2) L 10/04/22 23:50 Globulin 2.5 g/dL (1.3-4.6) 10/04/22 23:50 Blood Type O Positive 10/04/22 23:50 Rho(D) Type Positive 10/04/22 23:50 Antibody Screen Negative 10/04/22 23:50 Crossmatch See Detail 10/04/22 23:50 Critical Care Time Critical Care Time: Critical Care Time: Yes Total Critical Care Time: 60 Attestation: This case had a high probability of a clinically significant, sudden, or life threatening deterioration of this patient's condition which required my full and direct attention, intervention and personal management. Time is independent of any procedures performed Discharge Plan Discharge Patient Disposition: Xfer Short-Term Hosp Clinical Impression: Postoperative hemorrhage, Acute lower gastrointestinal bleeding Anemia Qualifiers: Anemia type: other cause Condition: Fair Referrals: Yudy Lozoya, [employer]ES[employer] ACCOUNT MANAGER-C [Primary Care Provider] - 4-7 days Quentin Shoemaker MD [Physician] - 1-3 days Coding Level of Care Code ED Aircraft Launch And Recovery Technician for Chg Fwd Documented by User: Franck Travis DO 10/05/22 11:01 HPI - GI Bleed General: Chief complaint: GI Bleed Stated complaint: THROAT BLEEDING Time Seen by Provider: 10/04/22 23:32 PFSH ED PFSH: Medical History Acid reflux Alcohol dependence, daily use 1-2 beer daily Anorexia Anxiety and depression Burst fracture of T12 vertebra Chronic episodic atrial fibrillation Patient is not on oral anticoagulant because of the GI bleed. 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 Dyslipidemia Essential (primary) hypertension High risk medication use Low serum triiodothyronine (T3) Non-ischemic cardiomyopathy Personal history of nicotine dependence Underweight Vitamin D deficiency Surgical History History of colonoscopy 2016 History of esophagogastroduodenoscopy (EGD) (~2016) History of kyphoplasty Family History Mother Cancer Brother Heart disease CAD (coronary artery disease) Grandmother Diabetes CAD (coronary artery disease) Cancer Denies family history of Clotting disorder Dementia Chronic kidney disease (CKD) Suicide Anesthesia complication Bleeding disorder Lung disease Stroke Social History Smoking and tobacco status: current every day smoker cigarettes Packs smoked per day: 1 Second hand smoke exposure: No Smoking risk assessment/counseling performed?: Yes Alcohol intake: current Alcohol intake frequency: 3 or more drinks per day Alcohol type: beer Desire information about alcohol rehabilitation?: No Counseling given: No Desire information about substance/drug rehabilitation?: No Counseling given: No Adopted: No Caregiver/support person: No Lives independently: Yes Household members: family Housing: House Marital status: Single service: No Current occupational status: unemployed Pets and animals: Yes Current gender identity: Female Physical Exam Neuro: [place] COMA SCALE: document GCS findings [place] coma scale total score: 15 Course Vital Signs: Vital signs: Vital Signs Temperature 98.0 F 10/05/22 04:22 Pulse Rate 95 10/05/22 11:30 Respiratory Rate 24 H 10/05/22 11:30 Blood Pressure 150/101 10/05/22 11:30 Pulse Oximetry 98 10/05/22 11:30 Oxygen Delivery Me thod 10/05/22 07:03 MDM - GI Bleed Medical Decision Making 47-year-old female bleeding from biopsy site in the posterior pharynx. No active bleeding currently. Site is partially covered with eschar, but is open inferiorly. Patient was given Cetacaine spray for topical anesthetic. Following this silver nitrate was used to cauterize the open inferior area of the biopsy site. She tolerated this without complication. There has been no further bleeding. Her hemoglobin is 6.1. It was 9.53 weeks ago. Platelet count is normal. Creatinine is 1.4 BUN is normal. Blood type is O+. She will get 2 units crossmatched here. Her vitals are stable. Patient is on her way through her second unit of blood currently. Between transfusions, the patient had a large bloody bowel movement. There was gross red blood in the stool as well as some partially digested blood. This does not give the suggestion of digested blood from a throat bleed at all. CTA was performed from the chest through the pelvis looking for an active bleed otherwise, since there has been no active bleeding from the throat lesion. No extra visitation was noted, but there is significant blood in the descending colon that could be a source of bleeding per radiology. I spoke with her surgeon. We do not have scope capability here to manage brisk upper or lower GI bleeding. I have a call out to [facility] in [place] as they have gas troenterology services there. Awaiting a callback. She is also receiving Cipro and Flagyl for the colitis noted on CT scan. She has received 80 mg of IV Protonix as well. Care assumed at change of shift have discussed with [facility] hospitalist service they will accept patient on transfer once her hemoglobin is above 7 repeat hemoglobin after the first unit was 9.4. Medical Records I reviewed the patient's medical records. Lab Data I reviewed the patient's lab results. 10/04/22 23:50 10/04/22 23:50 Radiology Impressions Chest/Abdomen/Pelvis CTA 10/05/22 04:32 IMPRESSION: 1. Subtle focal areas of increased attenuation within the descending colon on series 13 images 30 through 50. Findings may represent ingested material however can not exclude active GI bleed. Correlate and follow-up as clinically indicated. 2. Subtle ground-glass reticulonodular opacities are seen scattered throughout the lung magana, suggestive of respiratory bronchiolitis. 3. The womack of the sigmoid colon and rectum appear thickened and edematous with mild hyperenhancement of the mucosa. Findings are suggestive of colitis, correlate and follow-up as clinically indicated. 4. The gastric womack and loss of the distal esophagus appear thickened, this finding can be associated with gastritis however other etiologies including malignancy can not be excluded. Correlate and follow-up as clinically indicated. 5. Other multiple chronic/incidental findings as described above. The findings were verbally communicated via telephone conference with Dr. Monteiro at 6:15 AM CDT on 10/05/2022. The findings were acknowledged and understood. Laboratory Results WBC 8.4 10^3/uL (4.0-10.0) 10/04/22 23:50 RBC 1.94 10^6/uL (4.1-5.3) L 10/04/22 23:50 Hgb 9.4 g/dL (11.5-15.3) L D 10/05/22 09:32 Hct 19.1 % (37.0-47.0) L* 10/04/22 23:50 MCV 98.5 fl (81-99) 10/04/22 23:50 MCH 31.4 pg (28.0-34.0) 10/04/22 23:50 MCHC 31.9 g/dL (30.0-36.0) 10/04/22 23:50 RDW 16.1 % (12.1-15.1) H 10/04/22 23:50 Plt Count 209 10^3/cmm (130-400) 10/04/22 23:50 MPV 9.6 fL (7.4-10.4) 10/04/22 23:50 Neut % (Auto) 75.8 % 10/04/22 23:50 Lymph % (Auto) 17.4 % 10/04/22 23:50 [place] % (Auto) 5.6 % 10/04/22 23:50 Eos % (Auto) 0.4 % 10/04/22 23:50 Baso % (Auto) 0.4 % 10/04/22 23:50 Neut # (Auto) 6.35 10^3/uL (1.8-7.7) 10/04/22 23:50 Lymph # (Auto) 1.5 10^3/uL (0.8-4.8) 10/04/22 23:50 [place] # (Auto) 0.5 10^3/uL (0.2-0.9) 10/04/22 23:50 Eos # (Auto) 0.0 10^3/uL (0.0-0.8) 10/04/22 23:50 Baso # (Auto) 0.0 10^3/uL (0.0-0.1) 10/04/22 23:50 Nucleated RBC % (auto) 0 % 10/04/22 23:50 Nucleated RBCs # 0.0 /100WBC 10/04/22 23:50 PT 15.60 SECONDS (12.1-14.9) H 10/04/22 23:50 INR 1.20 (0.8-1.2) 10/04/22 23:50 APTT 28.7 SECONDS (23.9-36.7) 10/04/22 23:50 Sodium 133 mmol/L (136-145) L 10/04/22 23:50 Potassium 4.9 mmol/L (3.5-5.1) 10/04/22 23:50 Chloride 101 mmol/L (98-107) 10/04/22 23:50 Carbon Dioxide 25 mmol/L (22-29) 10/04/22 23:50 Anion Gap 11.9 (5-19) 10/04/22 23:50 BUN 10 mg/dL (6-20) 10/04/22 23:50 Creatinine 1.4 mg/dL (0.5-0.9) H 10/04/22 23:50 GFR Calculation 40.1 mL/min (90-130) L 10/04/22 23:50 Glucose 83 mg/dL (65-115) 10/04/22 23:50 Calculated Osmolality 274 mOsm/kg (285-295) L 10/04/22 23:50 Calcium 7.5 mg/dL (8.5-10.5) L 10/04/22 23:50 Total Bilirubin 0.2 mg/dL (0.15-1.2) 10/04/22 23:50 AST 27 U/L (0-32) 10/04/22 23:50 ALT 11 U/L (0-33) 10/04/22 23:50 Alkaline Phosphatase 89 U/L (35-105) 10/04/22 23:50 Total Protein 4.9 g/dL (6.6-8.7) L 10/04/22 23:50 Albumin 2.4 g/dL (3.5-5.2) L 10/04/22 23:50 Globulin 2.5 g/dL (1.3-4.6) 10/04/22 23:50 Blood Type O Positive 10/04/22 23:50 Rho(D) Type Positive 10/04/22 23:50 Antibody Screen Negative 10/04/22 23:50 Crossmatch See Detail 10/04/22 23:50 Discharge Plan Discharge Patient Disposition: Xfer Short-Term Hosp Clinical Impression: Postoperative hemorrhage, Acute lower gastrointestinal bleeding Anemia Qualifiers: Anemia type: other cause Condition: Fair Referrals: Yudy Lozoya, WHOLESALE ACCOUNT MANAGER-C [Primary Care Provider] - 4-7 days Quentin Shoemaker MD [Physician] - 1-3 days Coding Level of Care Code ED Aircraft Launch And Recovery Technician for Mercedes Short
--- NOTE | 2022-10-05 04:30 | PC.NURSE ---
Pt was assisted to restroom by nurse. Pt called nurse into restroom due to bleeding coming from rectum. Copious amounts of moriah red blood and blood clots were visualized in toilet by this nurse. Dr Monteiro notified. Pt returned to room and prepped for CT.
--- NOTE | 2022-10-05 04:32 | CTR_ITS ---
PROCEDURE INFORMATION: Exam: CTA Abdomen and Pelvis With Contrast Exam date and time: 10/05/2022 4:45 AM Age: 47 years old Clinical indication: Other: Bleeding from throat post bx; Prior surgery; Surgery date: Post-operative (0-2 days); Surgery type: Throat bx yesterday am per PT. Significant bleeding from throat but also from rectum; Patient HX: PT weighs 61 lbs. HX kyphoplasty, egd; Additional info: Gi bleeding TECHNIQUE: Imaging protocol: Computed tomographic angiography of the abdomen and pelvis with contrast. 3D rendering (Not supervised by radiologist): MIP and/or 3D reconstructed images were created by the technologist. Radiation optimization: All CT scans at this facility use at least one of these dose optimization techniques: automated exposure control; mA and/or kV adjustment per patient size (includes targeted exams where dose is matched to clinical indication); or iterative reconstruction. Contrast material: OMNI 350; Contrast volume: 40 ml; Contrast route: INTRAVENOUS (IV); REPORTING DATA: Count of CT and Cardiac NM exams in prior 12 months: This patient has received [address] and 0 known cardiac nuclear medicine studies in the 12 months prior to the current study. COMPARISON: [place] [id number] 12/18/2021 12:54 PM RADIATION DOSE METRICS: Total DLP (mGy-cm): 277.6 FINDINGS: Lungs: Subtle ground-glass reticulonodular opacities are seen scattered throughout the lung magana, suggestive of respiratory bronchiolitis. Coronary arteries: Advanced coronary vascular calcifications are noted. Mediastinal space: Redemonstration of small pocket of air interposed between the posterior trachea and right lateral aspect of the esophagus on series 4, image 27 measuring up to 1.1 cm x 0.8 cm in axial dimension. There is a appears to be a small defect in the posterior wall of the trachea on series 4, image 31 as well as the posterolateral aspect of the esophagus on series 4, image 23. This finding was also present on the exam performed on 12/18/2021. The womack of the distal esophagus appear mildly thickened. Diaphragm: Small hiatal hernia. Aorta: Mild atheromatous changes throughout the visualized portion of the aorta most pronounced in the infrarenal aorta and bilateral common iliac arteries. No aortic aneurysm. Celiac trunk and mesenteric arteries: Focal narrowing of the proximal celiac artery in the region of the arcuate ligament appears to result in up to approximately 50% stenosis with mild dilatation distal to the stenosis. Renal arteries: No occlusion or hemodynamically significant stenosis. Right iliac arteries: Atheromatous changes at the origin and proximal right common iliac artery result in mild up to 50% stenosis. No occlusion, no aneurysm. Left iliac arteries: Atheromatous changes at the origin and proximal right common iliac artery result in mild up to 50% stenosis. No occlusion, no aneurysm. Liver: No intraparenchymal lesions are seen. Gallbladder and bile ducts: No gallbladder wall thickening. No calcified stones. No ductal dilation. Pancreas: No mass. No ductal dilation. Spleen: Splenic granulomas, the spleen is otherwise unremarkable in appearance. Adrenal glands: Unremarkable. No mass. Kidneys and ureters: No solid mass. No hydronephrosis. Left renal superior pole low attenuating cystic structure most compatible with a benign cyst. Stomach and bowel: The gastric womack appear moderately thickened most pronounced in fundus and body. No pathologic bowel dilatation. No obstruction. Subtle focal areas of increased attenuation within the descending colon on series 13 images 30 through 50. The womack of the sigmoid colon and rectum appear mildly thickened and edematous with mild hyperenhancement of the mucosa. Appendix: No evidence of appendicitis. Intraperitoneal space: No free air. Small amount of free fluid is seen in the dependent portion the pelvis. No abnormal walled-off fluid collection. Lymph nodes: Calcified subcarinal and left hilar lymph nodes are noted. Urinary bladder: Unremarkable. No mass. Reproductive: Unremarkable as visualized. Bones/joints: No acute fracture. [id number] degenerative changes of the partially imaged spine and generalized osseous demineralization changes. Burst fracture at T12 with vertebroplasty cement and mildly retropulsed posterior fragment resulting in [id number] spinal canal stenosis at this level. Soft tissues: Unremarkable. CT[facility] [id number] IMPRESSION: 1. Subtle focal areas of increased attenuation within the descending colon on series 13 images 30 through 50. Findings may represent ingested material however can not exclude active GI bleed. Correlate and follow-up as clinically indicated. 2. Subtle ground-glass reticulonodular opacities are seen scattered throughout the lung magana, suggestive of respiratory bronchiolitis. 3. The womack of the sigmoid colon and rectum appear thickened and edematous with mild hyperenhancement of the mucosa. Findings are suggestive of colitis, correlate and follow-up as clinically indicated. 4. The gastric womack and loss of the distal esophagus appear thickened, this finding can be associated with gastritis however other etiologies including malignancy can not be excluded. Correlate and follow-up as clinically indicated. 5. Other multiple chronic/incidental findings as described above. The findings were verbally communicated via telephone conference with Dr. Monteiro at 6:15 AM CDT on 10/05/2022. The findings were acknowledged and understood.
[2022-10-05] MEDS: iohexol 350 mg/mL 500 mL Btl (per mL) IV (04:37)
[2022-10-05] MEDS: sodium chloride 0.9% 100 mL Bag 50 ML IV (06:44)
[2022-10-05] MEDS: FUROsemide 10 mg/mL SDV 2mL 20 MG IVP (06:44)
--- NOTE | 2022-10-05 07:30 | PC.NURSE ---
Patient had another BM with blood in it, no clots were seen.
[2022-10-05] MEDS: ciprofloxacin 400 MG/200 ML PREMIX 200 MG IV (07:44)
[2022-10-05] MEDS: metroNIDAZOLE IV 500 MG/100 ML PREMIX 100 MG IV (07:57)
[2022-10-05] MEDS: pantoprazole 40 mg SDV 80 MG IVP (07:57)
--- NOTE | 2022-10-05 08:59 | PC.NURSE ---
Patient had another BM with blood in it.
[2022-10-05] MEDS: diphenhydrAMINE 50 mg/mL SDV 1mL 25 MG IVP (09:17)
[2022-10-05 09:49] LABS: Hemoglobin 9.4 g/dL (11.5-15.3)
== END 2022-10-05 11:45 | disposition short-term general hospital (02) ==
PROVIDERS: Emergency Medicine; Emergency Provider Family Medicine; PCP Nurse Practitioner
DX: K91.840 Postprocedural hemorrhage of a digestive system organ or structure following a digestive system procedure (principal); I12.9 Hypertensive chronic kidney disease with stage 1 through stage 4 chronic kidney disease, or unspecified chronic kidney disease; N18.30 Chronic kidney disease, stage 3 unspecified; J44.9 Chronic obstructive pulmonary disease, unspecified; E78.5 Hyperlipidemia, unspecified; F17.210 Nicotine dependence, cigarettes, uncomplicated; K92.0 Hematemesis; K13.79 Other lesions of oral mucosa; F17.200 Nicotine dependence, unspecified, uncomplicated; B37.0 Candidal stomatitis; R13.10 Dysphagia, unspecified; K21.9 Gastro-esophageal reflux disease without esophagitis
CPT/HCPCS: 36430; 42100; 71275; 74174; 80053; 85018; 85025; 85610; 85730; 86850; 86900; 86920; 88305; 88342; 96365; 96367; 96375; 96376; 99213; 99285; C9113; J0744; J1200; J1940; J3490; J7030; P9016; Q9967

== ENCOUNTER → 2022-10-11 09:27 | Outpatient (BNVA) | payer MEDICARE, MEDICAID, SELFPAY | PROVIDERS: PCP Nurse Practitioner; Visit Provider Otolaryngology | DX: K13.79 Other lesions of oral mucosa (principal) | CPT/HCPCS: 99024; 99212 ==

== ENCOUNTER 2022-10-14 09:26 | Oncology outpatient (recurring) (ONCR) | payer MEDICARE, MEDICAID, SELFPAY ==
[2022-10-14 11:03] LABS: Basophils # 0.1 10^3/uL (0.0-0.1); Eosinophils % 0.8 %; Hematocrit 32.4 % (37.0-47.0); Hemoglobin 10.4 g/dL (11.5-15.3); Lymphocytes # 1.2 10^3/uL (0.8-4.8); Lymphocytes % 22.1 %; Mean Corpuscular HGB Conc 32.1 g/dL (30.0-36.0); Mean Corpuscular Hemoglobin 31.7 pg (28.0-34.0); Mean Corpuscular Volume 98.8 fl (81-99); Mean Platelet Volume 9.8 fL (7.4-10.4); Monocytes # 0.4 10^3/uL (0.2-0.9); Monocytes % 7.9 %; Neutrophils # 3.55 10^3/uL (1.8-7.7); Nucleated Red Blood Cells % 0 %; Platelet Count 280 10^3/cmm (130-400); Red Blood Count 3.28 10^6/uL (4.1-5.3); Red Cell Distribution Width 17.9 % (12.1-15.1); Reticulocyte % 1.4 % (0.5-2.0); White Blood Count 5.2 10^3/uL (4.0-10.0)
[2022-10-14 11:23] LABS: Alanine Aminotransferase 12 U/L (0-33); Albumin Level 2.6 g/dL (3.5-5.2); Alkaline Phosphatase 97 U/L (35-105); Anion Gap 8.3 (5-19); Aspartate Amino Transferase 25 U/L (0-32); Blood Urea Nitrogen 16 mg/dL (6-20); Calcium 9.1 mg/dL (8.5-10.5); Carbon Dioxide 28 mmol/L (22-29); Chloride 99 mmol/L (98-107); Ferritin 85 ng/mL (15-150); Globulin 2.6 g/dL (1.3-4.6); Glomerular Filtration Rate 47.9 mL/min (90-130); Glucose 70 mg/dL (65-115); Iron 89 ug/dL (37-145); Osmolality Calculated 272 mOsm/kg (285-295); Percent Saturation 46.5 % (20-50); Potassium 4.3 mmol/L (3.5-5.1); Sodium 131 mmol/L (136-145); Total Bilirubin 0.2 mg/dL (0.15-1.2); Total Iron Binding Capacity 191 mcg/dl; Total Protein 5.2 g/dL (6.6-8.7); Unsaturated Iron Binding 102 ug/dL (112-347)
[2022-10-14 11:38] LABS: Vitamin B12 1181 pg/mL (232-1245)
== END 2022-11-03 23:59 | disposition home or self-care (01) ==
LOC: ONCMED 09:27
PROVIDERS: PCP Nurse Practitioner; Visit Provider Internal Medicine Medical Oncology
DX: D63.8 Anemia in other chronic diseases classified elsewhere (principal); Z68.1 Body mass index [BMI] 19.9 or less, adult; R63.4 Abnormal weight loss; F17.210 Nicotine dependence, cigarettes, uncomplicated; K52.9 Noninfective gastroenteritis and colitis, unspecified; Z79.899 Other long term (current) drug therapy
CPT/HCPCS: 36415; 80053; 82607; 82728; 83540; 83550; 85025; 85045; 99214

== ENCOUNTER → 2022-10-24 09:53 | Outpatient (BNVA) | payer MEDICARE, MEDICAID, SELFPAY | PROVIDERS: PCP Nurse Practitioner; Visit Provider Nurse Practitioner Family | DX: R60.0 Localized edema (principal); E78.5 Hyperlipidemia, unspecified | CPT/HCPCS: 36415; 80048; 83880; 99214 ==

== ENCOUNTER 2022-11-06 10:27 | Outpatient (CLI) | payer MEDICARE, MEDICAID, SELFPAY ==
--- NOTE | 2022-11-06 11:00 | USCV_ITS ---
Nunu Mccoy Age: 47 Gender: F : 1975 Exam Date: 11/06/2022 11:15 Ordering Phys: Linda Banda Technologist: Elsy Mendoza Exam Location: [facility] [place] Indication: new pedal edema, non ischemic cardiomyopathy, BP: 128 / 80 HR: 82 Rhythm: Sinus Technical Quality: Adequate MEASUREMENTS (Male / Female) Normal Values 2D ECHO LV Diastolic Diameter PLAX 3.9 cm 4.2 - 5.9 / 3.9 - 5.3 cm LV Systolic Diameter PLAX 3.0 cm IVS Diastolic Thickness 0.6 cm 0.6 - 1.0 / 0.6 - 0.9 cm IVS Systolic Thickness 0.9 cm LVPW Diastolic Thickness 1.0 cm 0.6 - 1.0 / 0.6 - 0.9 cm LVPW Systolic Thickness 1.5 cm LVOT Diameter 2.0 cm LV Ejection Fraction 2D Teich 49.9 % LV Ejection Fraction MOD 2C 34.8 % LV Ejection Fraction 2C AL 34.2 % LA Diameter 2.9 cm LA Width 3.3 cm LA Height 4.1 cm RA Width 2.3 cm RA Height 2.9 cm Aorta at Sinotubular Diameter 0.0 cm IVC Diameter 1.4 cm M-MODE Aortic Annulus Diameter 2.7 cm LA Ao Ratio MM 1.2 MV E Point Septal Separation 0.4 cm DOPPLER AV Peak Velocity 106.0 cm/s LVOT Peak Velocity 67.0 cm/s AV Area Cont Eq vti 2.1 cm squared AV Area Cont Eq pk 2.0 cm squared MV Peak Velocity 101.0 cm/s MV Area PHT 5.9 cm squared Mitral E to A Ratio 0.9 MV E' Velocity 40.6 cm/s Mitral E to MV E' Ratio 26.8 Mitral E to LV E' Lateral Ratio 28.0 Mitral E to LV E' Septal Ratio 25.8 TR Peak Velocity 255.0 cm/s TR Peak Gradient 26.0 mmHg Right Atrial Pressure 5.0 mmHg Pulmonary Artery Systolic Pressu 31.0 mmHg PV Peak Velocity 98.0 cm/s RV Acceleration Time 0.1 s RV Ejection Time 0.3 s RV AcT/ET 0.4 FINDINGS Left Ventricle Diffuse hypokinesia of the left ventricule with a left ventricular ejection fraction of 40- 45% (visual) Right Ventricle The right ventricle is normal in size and function. Right Atrium The right atrium is normal in size. Left Atrium Mildly increased left atrial size. Atrial septal aneurysm measuring 2.3 x 2.5 cm Mitral Valve Thickened mitral valve. Mild mitral valve regurgitation. Aortic Valve Trace aortic valve regurgitation. Tricuspid Valve Moderate tricuspid valve regurgitation. Pulmonic Valve No gross abnormalities noted Pericardium No pericardial effusion. Aorta Normal ascending aorta dimension. IVC The inferior vena cava appears normal. CONCLUSIONS Diffuse hypokinesia of the left ventricule with a left ventricular ejection fraction of 40- 45% (visual). Mildly increased left atrial size. Atrial septal aneurysm measuring 2.3 x 2.5 cm. Trace aortic valve regurgitation. Moderate tricuspid valve regurgitation. Estimated pulmonary artery peak systolic pressure 31 mmHg. There is no pericardial effusion. There are no intracardiac masses. Compared to the previous study from 05/08/2021 there is some worsening of the LV systolic function Dr Evelyne Prakash MD [facility] (Electronically Signed) Final Date: 08 Nov 2022 00:26 S
== END 2022-11-06 10:28 | disposition home or self-care (01) ==
LOC: RAD 10:30
PROVIDERS: PCP Nurse Practitioner; Visit Provider Nurse Practitioner Family
DX: D64.9 Anemia, unspecified (principal); I42.8 Other cardiomyopathies; N18.30 Chronic kidney disease, stage 3 unspecified; I07.1 Rheumatic tricuspid insufficiency
CPT/HCPCS: 93306

== ENCOUNTER 2022-11-19 09:47 | Oncology outpatient (recurring) (ONCR) | payer MEDICARE, MEDICAID, SELFPAY ==
[2022-11-19 10:11] LABS: Basophils % 0.4 %; Eosinophils # 0.2 10^3/uL (0.0-0.8); Eosinophils % 2.2 %; Hematocrit 30.4 % (37.0-47.0); Hemoglobin 9.7 g/dL (11.5-15.3); Lymphocytes # 1.3 10^3/uL (0.8-4.8); Lymphocytes % 16.5 %; Mean Corpuscular HGB Conc 31.9 g/dL (30.0-36.0); Mean Corpuscular Hemoglobin 31.3 pg (28.0-34.0); Mean Corpuscular Volume 98.1 fl (81-99); Mean Platelet Volume 9.2 fL (7.4-10.4); Monocytes # 0.5 10^3/uL (0.2-0.9); Monocytes % 6.6 %; Neutrophils # 6.02 10^3/uL (1.8-7.7); Neutrophils % 74.1 %; Nucleated Red Blood Cells % 0 %; Platelet Count 277 10^3/cmm (130-400); Red Cell Distribution Width 15.5 % (12.1-15.1); White Blood Count 8.1 10^3/uL (4.0-10.0)
[2022-11-19 10:34] LABS: Alanine Aminotransferase 32 U/L (0-33); Albumin Level 3.3 g/dL (3.5-5.2); Alkaline Phosphatase 107 U/L (35-105); Aspartate Amino Transferase 51 U/L (0-32); Blood Urea Nitrogen 8 mg/dL (6-20); Calcium 8.5 mg/dL (8.5-10.5); Carbon Dioxide 27 mmol/L (22-29); Chloride 102 mmol/L (98-107); Ferritin 66 ng/mL (15-150); Globulin 2.9 g/dL (1.3-4.6); Glomerular Filtration Rate 47.9 mL/min (90-130); Glucose 117 mg/dL (65-115); Iron 88 ug/dL (37-145); Osmolality Calculated 289 mOsm/kg (285-295); Percent Saturation 38.9 % (20-50); Sodium 140 mmol/L (136-145); Total Bilirubin 0.3 mg/dL (0.15-1.2); Total Iron Binding Capacity 226 mcg/dl; Total Protein 6.2 g/dL (6.6-8.7); Unsaturated Iron Binding 138 ug/dL (112-347)
[2022-11-19 10:38] LABS: Anion Gap 14.8 (5-19); Potassium 3.8 mmol/L (3.5-5.1)
== END 2022-12-04 23:59 | disposition home or self-care (01) ==
PROVIDERS: PCP Nurse Practitioner; Visit Provider Internal Medicine Medical Oncology
DX: D64.9 Anemia, unspecified; F17.210 Nicotine dependence, cigarettes, uncomplicated
CPT/HCPCS: 36415; 80048; 80053; 81000; 82728; 83540; 83550; 83880; 85025; 99213

== ENCOUNTER → 2023-01-13 10:07 | Outpatient (BNVA) | payer MEDICARE, MEDICAID, SELFPAY | PROVIDERS: PCP Nurse Practitioner; Visit Provider Otolaryngology | DX: K13.79 Other lesions of oral mucosa (principal); R13.10 Dysphagia, unspecified; F10.20 Alcohol dependence, uncomplicated; K21.9 Gastro-esophageal reflux disease without esophagitis; J43.9 Emphysema, unspecified; R63.0 Anorexia; I10 Essential (primary) hypertension; F41.9 Anxiety disorder, unspecified; F32.9 Major depressive disorder, single episode, unspecified; F17.200 Nicotine dependence, unspecified, uncomplicated; N18.4 Chronic kidney disease, stage 4 (severe); Z68.1 Body mass index [BMI] 19.9 or less, adult | CPT/HCPCS: 99214; 99215 ==

== ENCOUNTER 2023-01-16 06:31 | Day surgery (SDC) | payer MEDICARE, MEDICAID, SELFPAY ==
[2023-01-16] VITALS (11 sets, daily range): BP systolic 97–157; BP diastolic 68–100; PULSE 74–91; RESP 15–18; TEMP 36.1–36.3; O2SAT 95–100
[2023-01-16] MEDS: sodium chloride 0.9% 1,000 ML 30 ML IV (07:00)
[2023-01-16 07:32] LABS: Basophils # 0.1 10^3/uL (0.0-0.1); Eosinophils # 0.3 10^3/uL (0.0-0.8); Eosinophils % 3.9 %; Hematocrit 31.4 % (37.0-47.0); Hemoglobin 10.4 g/dL (11.5-15.3); Lymphocytes # 1.5 10^3/uL (0.8-4.8); Lymphocytes % 20.9 %; Mean Corpuscular HGB Conc 33.1 g/dL (30.0-36.0); Mean Corpuscular Hemoglobin 31.4 pg (28.0-34.0); Mean Corpuscular Volume 94.9 fl (81-99); Mean Platelet Volume 9.4 fL (7.4-10.4); Monocytes # 0.5 10^3/uL (0.2-0.9); Monocytes % 6.7 %; Neutrophils % 67.1 %; Nucleated Red Blood Cells % 0 %; Platelet Count 238 10^3/cmm (130-400); Red Blood Count 3.31 10^6/uL (4.1-5.3); Red Cell Distribution Width 13.5 % (12.1-15.1); White Blood Count 7.2 10^3/uL (4.0-10.0)
[2023-01-16 07:47] LABS: Alanine Aminotransferase 41 U/L (0-33); Albumin Level 3.4 g/dL (3.5-5.2); Alkaline Phosphatase 133 U/L (35-105); Anion Gap 13.7 (5-19); Aspartate Amino Transferase 64 U/L (0-32); Blood Urea Nitrogen 7 mg/dL (6-20); Calcium 8.5 mg/dL (8.5-10.5); Carbon Dioxide 27 mmol/L (22-29); Chloride 98 mmol/L (98-107); Globulin 2.8 g/dL (1.3-4.6); Glomerular Filtration Rate 40.1 mL/min (90-130); Glucose 77 mg/dL (65-115); Osmolality Calculated 277 mOsm/kg (285-295); Potassium 3.7 mmol/L (3.5-5.1); Sodium 135 mmol/L (136-145); Total Bilirubin 0.4 mg/dL (0.15-1.2); Total Protein 6.2 g/dL (6.6-8.7)
--- NOTE | 2023-01-16 08:00 | ANES.PREANE2 ---
Pre-Anesthetic Assessment Height/Weight: Height 1.73 m Weight 28.576 kg Temp Pulse Resp BP Pulse Ox O2 Del Method 97.4 F L 79 16 121/90 100 Room Air 01/16/23 06:41 01/16/23 06:41 01/16/23 06:41 01/16/23 06:41 01/16/23 06:41 01/16/23 06:54 Preop Diagnosis: Exophytic lesion of palate Operation Date: 01/16/23 08:00 Proposed Procedures p [id number] - direct layngoscopy and excision of palatal lesion BX with repair , K13.79, R13.10(Not Applicable) - Quentin Shoemaker MD s Excision Mouth Mass/Lesion(Not Applicable) - Quentin Shoemaker MD Familial anesthetic complications: None Was Beta Clemente taken within 24 hours: N/A Was Clonidine taken within 24 hours: N/A Last intake: Intake Last Liquid Date 01/15/23 Last Liquid Time 17:00 Last Solid Date 01/15/23 Last Solid Time 17:00 Social Alcohol and Tobacco Exam alert, oriented x 3, clear to auscultation bilaterally and regular rate & rhythm Airway Mallampati: Class I Dentition: chipped and other (poor) Comments: Comments: airway mass Pulmonary Chronic Obstructive Pulmonary Disease CV/HEM Atrial Fibrillation, Anemia, Arrythmia, Congestive Heart Failure and Hypertension Chronic Renal Insufficiency [facility]/sk cachexia Anesthetic Plan ASA status: 4 Anesthesia: General Risk of > 500 ml blood loss (7ml/kg in children): No Medications/Allergies Home Medications Medication Instructions Recorded Confirmed Last Taken Type potassium 99 mg tablet 99 mg PO DAILY 08/16/20 01/15/23 01/15/23 History albuterol sulfate 2.5 mg/3 mL 2.5 mg (3 mL) inhalation Q6H PRN 10/31/20 01/16/23 01/15/23 Rx (0.083 %) solution for nebulization shortness of breath or wheezing #180 mL TLSO back brace #1 ea 06/07/21 01/13/23 Unknown Rx aspirin 81 mg tablet,delayed 81 mg PO BID #180 tabs 07/21/22 01/15/23 01/15/23 Rx release clonidine HCl 0.1 mg tablet 0.1 mg PO BID PRN hypertensive 08/09/22 01/15/23 Unknown Rx emergency #180 tabs cranberry fruit concentrate 250 mg 250 mg PO BEDTIME 09/05/22 01/15/23 01/15/23 History chewable tablet (Azo Cranberry) mecobalamin (vitamin B12) 1,000 1,000 mcg PO DAILY 09/05/22 01/15/23 01/15/23 History mcg chewable tablet amiodarone 200 mg tablet 100 mg PO DAILY #45 tabs 09/12/22 01/15/23 01/16/23 Rx melatonin 5 mg tablet 2.5 mg PO .HS 10/24/22 01/15/23 01/15/23 History furosemide 20 mg tablet 20 mg PO DAILY #90 tabs 11/13/22 01/15/23 01/15/23 Rx carvedilol 3.125 mg tablet 6.25 mg PO BID #180 tabs 12/03/22 01/15/23 01/15/23 Rx Lactobacillus rhamnosus GG 20 See Rx Instructions PO .2 times 12/12/22 01/15/23 01/15/23 Rx billion cell capsule (Probiotic day #60 caps [facility]) atorvastatin 10 mg tablet (Lipitor) 10 mg PO DAILY #90 tabs 12/12/22 01/15/23 01/15/23 Rx calcium carbonate 500 mg-vitamin 2 tab PO BID #360 tabs 12/12/22 01/15/23 01/15/23 Rx D3 5 mcg (200 unit) tablet (Os-Vitor 500 + D3) chlorhexidine gluconate 0.12 % 15 ml buccal BID #600 mL 12/12/22 01/15/23 01/15/23 Rx mouthwash (Peridex) dapagliflozin 10 mg tablet 10 mg PO DAILY #30 tabs 12/12/22 01/15/23 01/15/23 Rx (Farxiga) famotidine 40 mg tablet 40 mg PO BID #60 tabs 12/12/22 01/15/23 01/15/23 Rx fluticasone propionate 110 2 puff inhalation Q12H #12 grams 12/12/22 01/16/23 01/15/23 Rx mcg/actuation HFA aerosol inhaler (Flovent HFA) folic acid 1 mg tablet 1 mg PO DAILY #90 tabs 12/12/22 01/15/23 01/15/23 Rx gabapentin 300 mg capsule 300 mg PO BID Pain #60 caps 12/12/22 01/15/23 01/15/23 Rx levalbuterol tartrate 45 2 inh inhalation Q6H PRN shortness 12/12/22 01/15/23 Unknown Rx mcg/actuation aerosol inhaler of breath or wheezing #15 grams (Xopenex HFA) liothyronine 5 mcg tablet (Cytomel) 20 mcg PO DAILY #120 tabs 12/12/22 01/15/23 01/15/23 Rx umeclidinium 62.5 mcg-vilanterol 1 inh inhalation Q24H #60 ea 12/12/22 01/16/23 01/15/23 Rx 25 mcg/actuation powdr for inhalation (Anoro Ellipta) venlafaxine 150 mg 150 mg PO QAM #30 caps 12/12/22 01/15/23 01/15/23 Rx capsule,extended release 24 hr (Effexor XR) Allergies Allergy/AdvReac Type Severity Reaction Status Date / Time No Known Allergies Allergy Verified 01/16/23 06:44 Current Medications Generic Name Dose Route Start Last Admin Trade Name Freq PRN Reason Stop Dose Admin Sodium Chloride 1,000 mls @ 30 mls/hr 01/16/23 06:45 01/16/23 07:00 Sodium Chloride 0.9% IV 01/17/23 06:44 30 mls/hr .Q24H BARRIE Administration PFSH Anesthesia Medical History Acid reflux Alcohol dependence, daily use 1-2 beer daily Aneurysm Anorexia Anxiety and depression Burst fracture of T12 vertebra Chronic episodic atrial fibrillation Patient is not on oral anticoagulant because of the GI bleed. 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 Dyslipidemia Essential (primary) hypertension High risk medication use Low serum triiodothyronine (T3) Non-ischemic cardiomyopathy Personal history of nicotine dependence Underweight Vitamin D deficiency Surgical History History of colonoscopy 2016 History of esophagogastroduodenoscopy (EGD) (~2017) History of kyphoplasty Family History Mother Cancer Brother Heart disease CAD (coronary artery disease) Grandmother Diabetes CAD (coronary artery disease) Cancer Denies family history of Clotting disorder Dementia Chronic kidney disease (CKD) Suicide Anesthesia complication Bleeding disorder Lung disease Stroke Social History Smoking and tobacco status: current every day smoker cigarettes Packs smoked per day: 1 Second hand smoke exposure: No Smoking risk assessment/counseling performed?: Yes Alcohol intake: current Alcohol intake frequency: 3 or more drinks per day Alcohol type: beer Desire information about alcohol rehabilitation?: No Counseling given: No Substance/Drug Use: unknown Desire information about substance/drug rehabilitation?: No Counseling given: No Adopted: No Caregiver/support person: No Lives independently: Yes Household members: family Housing: House Marital status: Single service: No Current occupational status: unemployed Pets and animals: Yes Do you think of yourself as: Straight/Heterosexual Current gender identity: Female Data Anesthesia 01/16/23 07:00 01/16/23 07:00 Short CBC 01/16/23 Range/Units 07:00 WBC 7.2 (4.0-10.0) 10^3/uL Hgb 10.4 L (11.5-15.3) g/dL Hct 31.4 L (37.0-47.0) % MCV 94.9 (81-99) fl Plt Count 238 (130-400) 10^3/cmm Neut % (Auto) 67.1 % Neut # (Auto) 4.80 (1.8-7.7) 10^3/uL BMP 01/16/23 07:00 Sodium 135 L Potassium 3.7 Chloride 98 Carbon Dioxide 27 BUN 7 Creatinine 1.4 H Glucose 77 Calcium 8.5 Liver Function 01/16/23 Range/Units 07:00 Total Bilirubin 0.4 (0.15-1.2) mg/dL AST 64 H (0-32) U/L ALT 41 H (0-33) U/L Alkaline Phosphatase 133 H (35-105) U/L Albumin 3.4 L (3.5-5.2) g/dL Cardiac Studies: Echocardiogram 11/06/22 Echocardiogram Ultrasound 05/08/21
--- NOTE | 2023-01-16 08:04 | W.PM.OPSUD ---
Surgery/Procedure H&P Update DATE OF PROCEDURE: January 16, 2023 DATE H&P PERFORMED: 01/13/23 H&P UPDATE INFORMATION: I have reviewed H&P completed within last 30 days, I have examined patient prior to procedure and No changes to prior documentation CHANGES TO PREVIOUS DOCUMENTATION: No changes PREOP DIAGNOSIS: Exophytic lesion of palate PRIMARY INDICATION FOR PROCEDURE: Exophytic lesion of the soft palate PLANNED PROCEDURE: Operation Date: 01/16/23 08:00 Proposed Procedures p [id number] - direct layngoscopy and excision of palatal lesion BX with repair , K13.79, R13.10(Not Applicable) - Quentin Shoemaker MD s Excision Mouth Mass/Lesion(Not Applicable) - Quentin Shoemaker MD
[2023-01-16] MEDS: ceFAZolin 2,000 MG in sodium chloride 0.9% (plus) 50 ML 100 MG IV (08:08)
[2023-01-16] MEDS: oxymetazoline 0.05% Nasal Spray 15 mL 1 SPRAY XX (08:46)
--- NOTE | 2023-01-16 08:51 | P.OP_ITS ---
Operative Report Date of procedure: January 16, 2023 Pre-op diagnosis: Preop Diagnosis Exophytic lesion of soft palate Post-op diagnosis: Same Post-op findings: No abnormalities found on direct laryngoscopy. Exophytic irregular lesion involving the anterior aspect of the left soft palate extending onto the uvula o n its left side. Procedure done: Direct laryngoscopy. Excision of left soft palate lesion with uvula with repair Implants: No implants. Specimens removed/disposition: Left soft palate with lesion and uvula Pathology: Same Surgeon: Quentin Shoemaker MD Anesthesia: General Estimated blood loss: 5 mL Complications: No complications encountered Findings: Patient had a 1.75 cm x 1 cm exophytic lesion on the anterior surface of the left soft palate extending and growing onto the uvula on the left side. Brief History: 47-year-old female patient who is a smoker and a drinker of alcohol with dysphagia and throat discomfort previously had biopsy of this soft palate lesion which proved to be keratosis. This has grown significantly in size and symptoms are persisting. Therefore the patient is being brought to the operating room to undergo excision of this mass with uvula. The procedure its risks and complications of been explained in detail in the office setting. These risks included bleeding and infection and numbness and scarring and swelling and bruising and recurrence and need for additional treatment as well as more serious risk such as heart attack or stroke or not surviving the surgery. With these things understood informed consent was granted and witnessed. Procedure: Description of procedure: The patient was placed on the operating table in the supine position. Adequate general endotracheal tube anesthesia was obtained. She was given Ancef IV for prophylaxis. The table was rotated 90 degrees. Her head was dropped 15 degrees to the horizontal. The eyes were taped shut and a head drape was applied in usual fashion. A timeout was accomplished identifying the patient date of plan procedure allergies fire risk and medications given. With all in agreement the procedure continued. A tooth guard was placed over her upper gingiva. An anterior commissure laryngoscope was used to perform a direct laryngoscopy. This showed a normal base of tongue vallecula and epiglottis. The laryngeal surface of the epiglottis was normal as well. True vocal cords were white in appearance and normal with no nodules or polyps or lesions. Postcricoid area was normal. Interarytenoid area was normal. The piriform sinuses were clear with no pooling of secretions and no lesions ulcers or masses. Immediate subglottic area around the tube appeared normal. AE folds were normal. Arytenoids were normal. Scope was removed without incident. Gum guard was removed. Attention was then turned to performing the excisional biopsy of the left soft palate lesion. The Coblator on ablation and coagulation modes was used to excise this lesion beginning on the right side of the uvula and extending above and inferior on the posterior aspect and then over to the left side into the superior aspect of the left tonsillar fossa. This incorporated the entire l esion taken down to the muscular layer. This was sent to pathology for permanent section only. Hemostasis was attained with the coagulation mode of the Coblator and then sutures were placed in an interrupted fashion with 3-0 Vicryl sutures. A tonsil sponge soaked in 12-hour Afrin was then applied. After several minutes this was removed. The area was irrigated and suctioned. No bleeding was seen at this point. The mouthgag was released and removed. The patient's head was returned to the upright position. Head drape and tape were removed. The throat was suctioned again with the Yankauer suction. No bleeding was seen. Patient was returned to anesthesia for wake-up and extubation. She tolerated the procedure well had an estimated blood loss of 5 mL and arrived in recovery in stable condition.
--- NOTE | 2023-01-16 10:00 | ANE.PACU2 ---
Inpatient post-anesthesia follow up: Airway intact: Yes Vital signs: Temperature 97.1 F Pulse Rate 80 Respiratory Rate 16 Blood Pressure 157/97 Pulse Oximetry 95 Oxygen Delivery Me thod Room Air Oxygen Flow Rate 6 Fraction of Inspir ed Oxygen Hydration adequate: Yes Nausea and vomiting: Yes Pain level: 1 Mental status: Baseline
[2023-01-16] MEDS: TRAMadol 50 mg Tablet PO (10:16)
[2023-01-22 15:39] LABS: PD-L1 (Clone 22C3) by IHC BBPL See Report
== END 2023-01-16 10:55 | disposition home or self-care (01) ==
PROVIDERS: Anesthesiology; PCP Nurse Practitioner; Visit Provider Otolaryngology
PROC: 0CJS8ZZ Inspection of Larynx, Via Natural or Artificial Opening Endoscopic (ICD-10-PCS; CPT 31525; principal; 2023-01-16 08:00)
PROC: (CPT 31525; 2023-01-16 08:00)
DX: C05.1 Malignant neoplasm of soft palate (principal); C05.2 Malignant neoplasm of uvula; J44.9 Chronic obstructive pulmonary disease, unspecified; I48.91 Unspecified atrial fibrillation; I13.0 Hypertensive heart and chronic kidney disease with heart failure and stage 1 through stage 4 chronic kidney disease, or unspecified chronic kidney disease; I50.9 Heart failure, unspecified; N18.9 Chronic kidney disease, unspecified; Z79.82 Long term (current) use of aspirin; F32.A Depression, unspecified; F41.9 Anxiety disorder, unspecified; E78.5 Hyperlipidemia, unspecified; F17.210 Nicotine dependence, cigarettes, uncomplicated; R13.10 Dysphagia, unspecified; F10.20 Alcohol dependence, uncomplicated
CPT/HCPCS: 31525; 42106; 36415; 80053; 85025; 86850; 86900; 88305; 88341; 88342; J0330; J0690; J1100; J2250; J2405; J2704; J2710; J3010; J3490; J7030

== ENCOUNTER → 2023-01-23 12:13 | Outpatient (BNVA) | payer MEDICARE, MEDICAID, SELFPAY | PROVIDERS: PCP Nurse Practitioner; Visit Provider Internal Medicine Cardiovascular Disease | DX: R06.02 Shortness of breath (principal); I10 Essential (primary) hypertension; E78.5 Hyperlipidemia, unspecified; I42.8 Other cardiomyopathies; I48.20 Chronic atrial fibrillation, unspecified; J43.9 Emphysema, unspecified; I50.30 Unspecified diastolic (congestive) heart failure; Z79.899 Other long term (current) drug therapy; F17.210 Nicotine dependence, cigarettes, uncomplicated | CPT/HCPCS: 36415; 80048; 83880; 99214 ==

== ENCOUNTER → 2023-01-24 09:12 | Outpatient (BNVA) | payer MEDICARE, MEDICAID, SELFPAY | PROVIDERS: PCP Nurse Practitioner; Visit Provider Otolaryngology | DX: C05.2 Malignant neoplasm of uvula (principal); Z48.814 Encounter for surgical aftercare following surgery on the teeth or oral cavity; C05.1 Malignant neoplasm of soft palate | CPT/HCPCS: 99024 ==

== ENCOUNTER 2023-01-27 12:43 | Outpatient (CLI) | payer MEDICARE, MEDICAID, SELFPAY ==
--- NOTE | 2023-01-27 13:00 | XR_ITS ---
WS: [id number] SCREENING DEXA SCAN [facility] CLINICAL INFORMATION: Z78.0 - Asymptomatic menopausal state COMPARISON: 2017 FINDINGS: The L1-L4 bone mineral density measures 1.06. This corresponds to a T score score of -1.2 and Z score of 0.3. Left femoral neck bone mineral density measures 0.611 g/cm2. This corresponds to a T score of -3.1 an d Z score of -1.9. Right femoral neck bone mineral density measures 0.702 g/cm2. This corresponds to a T score -2.4of an d Z score of -1.1. Mean femoral neck bone mineral density measures 0.657 g/cm2. This corresponds to a T score of -2.8 an d Z score of -1.5. XR/XR DEXA axial skeleton* [id number] IMPRESSION: Osteopenia lumbar spine. Osteoporosis femoral necks. Patient's FRAX calculated 10 year probability for major osteoporotic fracture i s 13.3 % and osteoporotic hip fracture is 6.8%. Bone mineral density lumbar spine has decreased -4.1% since 2017. Bone mineral density in the femoral necks has decreased -9.0% since 2017.
--- NOTE | 2023-01-27 13:59 | MM_ITS ---
WS: [id number] BILATERAL 3D TOMOSYNTHESIS DIGITAL SCREENING MAMMOGRAM WITH CAD CLINICAL INFORMATION: Z12.31 - Encounter for screening mammogram for malignant ... HISTORY: Screening mammogram. No current complaints. COMPARISON: None. TECHNIQUE: Bilateral CC and MLO. FINDINGS: The breast are composed of extremely dense tissue, which can limit the detection of small underlying mass lesions. No suspicious focal mass, asymmetry, calcifications, or architectural distortion. No ev idence of malignancy. A few vascular calcifications. MM/[place] [id number] IMPRESSION: BI-RADS: 2-Benign FOLLOW UP: 1 Year Follow-up Recommend return to annual screening mammography.
== END 2023-01-27 12:44 | disposition home or self-care (01) ==
LOC: RAD 12:54 → MOBLMAM 13:47 → RAD 13:52
PROVIDERS: PCP Nurse Practitioner; Visit Provider Nurse Practitioner
DX: Z12.31 Encounter for screening mammogram for malignant neoplasm of breast (principal); Z13.820 Encounter for screening for osteoporosis; Z78.0 Asymptomatic menopausal state; M85.89 Other specified disorders of bone density and structure, multiple sites
CPT/HCPCS: 77063; 77067; 77080

== ENCOUNTER 2023-02-18 12:00 | Oncology outpatient (recurring) (ONCR) | payer MEDICARE, MEDICAID, SELFPAY ==
--- NOTE | 2023-02-13 11:33 | N.ONRAD NP_ITS ---
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 Chief Complaint / History of Present Illness: The patient is a 47-year-old female with history of hoarseness, dysphagia, and throat discomfort with difficulty swallowing. She was seen by Quentin Shoemaker MD, in ENT and initial biopsy 10/04/2022 revealed keratosis. The lesion grew and reexcision 01/16/2023 pathology revealed a 1.75 x 1 cm exophytic irregular lesion involving the anterior aspect of the left soft palate extending into the uvula on its left side. Tumor involve the muscle and there was a 5 mm margin from the deep inked margin. The tumor was p16 negative. Patient is a 1 pack/day smoker and drinks 3 beers per day. She has a history of bulimia and is underweight at 5 foot 7 inches and 64 pounds. Patient is single and lives with her father. Her father is present with her today at the time of examination. Current Medications: Albuterol Sulfate, amiodarone HCl, anoro Ellipta, aspirin, atorvastatin Calcium, b-12, calcium 500 + D, carvedilol, chlorhexidine Gluconate, cloNIDine HCl, cranberry, dapagliflozin Propanediol, famotidine, fluticasone Propionate HFA, folic Acid, furosemide, gabapentin, levalbuterol Tartrate, liothyronine Sodium, melatonin, potassium, probiotic Digestive Support, traMADol HCl, venlafaxine HCl ER. Allergies: No known allergies. Medical History: Medical history significant for COPD, hypothyroidism, hypercholesterolemia, hypertension, acid reflux, alcoholism, anxiety/depression, chronic kidney disease stage III, degenerative joint disease, hypovitaminosis D, and bulimia. No history of collagen vascular disease. No previous radiation therapy. Surgical History: Kyphoplasty for treatment of burst fracture at T12, EGD 2016 and colonoscopy 2016 Family History: Her mother had cancer. Her brother had heart disease and coronary artery disease. Her grandmother had diabetes, coronary artery disease, and cancer. Social History: Patient is single and lives with her father. She enjoys working [employer]. Current Complaints / Review of Systems: . Vital Signs: Performed on 02/13/2023 10:46 AM BMI - 10.608 kg/m2 (low), Height - 64 in, Weight - 61.8 lbs, Temperature - 96.5 f, Pulse - 83 /min, Respiration - 18 /min, O2 Sat - 97 %, Pain - 0, Fatigue - 0 and BP - 101/ 75 mm(hg). Physical Exam: Cachectic appearing female. She is alert and oriented. PERRL, EOMI. Cranial nerves II through XII grossly intact. Tongue and uvula midline and mobile. Sutures are present in the soft palate with whitish plaques. Teeth are in poor repair with multiple cavities and missing teeth. No cervical, supraclavicular or axillar adenopathy. Lungs clear to auscultation bilaterally. Cardiovascular exam reveals regular rhythm. Abdomen soft nontender. Bowel sounds present normoactive. Pelvic and rectal exam deferred. Motor symmetrical to the upper and lower extremities. Patient ambulatory without assistance. Performance Status: ECOG 1 Pathology: 1.75 x 1 cm exophytic irregular lesion with pathology revealing moderately differentiated invasive squamous cell carcinoma, basaloid variant, with 5 mm clear margins. P16 negative Lab: Imaging: See HPI Impression: Nunu Mccoy has a stage I T1 N0 M0 p16 negative squamous cell carcinoma of the soft palate that has been excised with 5 mm clear margin. She continues to smoke 1 pack of cigarettes daily and drink 3 beers daily. Review of the NCCN guidelines indicate surgery alone as adequate treatment with the 5 mm margin. We discussed the risk of recurrence if she continues to smoke. Studies have shown a decrease likelihood of recurrence by roughly 1/3 by quitting smoking. Plan: Patient is scheduled to be seen by Dr. Shoemaker for removal of the sutures. She will need close follow-up. If the lesion recurs she would need additional biopsy and surgery and likely postoperative radiation therapy. With her poor dentition and she would require dental extractions prior to any radiation therapy. Patient has been encouraged to quit smoking and indicates her understanding of the need for close follow-up. Signed by: 02/13/2023 11:31:50 AM <<Signature on File>> Time spent with patient: CPT Code: CPT Code:
[2023-02-18 11:57] VITALS: BP 137/87; PULSE 80; RESP 18; TEMP 36.9; O2SAT 100
[2023-02-18 12:07] LABS: Basophils % 0.7 %; Eosinophils # 0.1 10^3/uL (0.0-0.8); Eosinophils % 1.4 %; Hematocrit 30.6 % (37.0-47.0); Hemoglobin 10.1 g/dL (11.5-15.3); Lymphocytes # 1.4 10^3/uL (0.8-4.8); Mean Corpuscular Hemoglobin 30.3 pg (28.0-34.0); Mean Corpuscular Volume 91.9 fl (81-99); Monocytes # 0.5 10^3/uL (0.2-0.9); Monocytes % 7.9 %; Neutrophils % 64.8 %; Nucleated Red Blood Cells % 0 %; Platelet Count 242 10^3/cmm (130-400); Red Blood Count 3.33 10^6/uL (4.1-5.3); Red Cell Distribution Width 14.1 % (12.1-15.1); White Blood Count 5.7 10^3/uL (4.0-10.0)
[2023-02-18 12:08] LABS: Erythrocyte Sedimentation Rate 3 mm/hr (0-15)
[2023-02-18 12:44] LABS: Alanine Aminotransferase 50 U/L (0-33); Albumin Level 3.2 g/dL (3.5-5.2); Alkaline Phosphatase 143 U/L (35-105); Anion Gap 14.5 (5-19); Aspartate Amino Transferase 96 U/L (0-32); Blood Urea Nitrogen 9 mg/dL (6-20); Calcium 8.6 mg/dL (8.5-10.5); Carbon Dioxide 27 mmol/L (22-29); Chloride 102 mmol/L (98-107); Globulin 3.1 g/dL (1.3-4.6); Glomerular Filtration Rate 43.7 mL/min (90-130); Glucose 86 mg/dL (65-115); Osmolality Calculated 288 mOsm/kg (285-295); Potassium 3.5 mmol/L (3.5-5.1); Sodium 140 mmol/L (136-145); Total Bilirubin 0.2 mg/dL (0.15-1.2); Total Protein 6.3 g/dL (6.6-8.7)
[2023-02-18 13:08] LABS: Ferritin 61 ng/mL (15-150); Iron 92 ug/dL (37-145); Percent Saturation 49.4 % (20-50); Total Iron Binding Capacity 186 mcg/dl; Unsaturated Iron Binding 94 ug/dL (112-347)
== END 2023-03-06 23:59 | disposition home or self-care (01) ==
PROVIDERS: PCP Nurse Practitioner; Visit Provider Internal Medicine Medical Oncology
DX: D64.9 Anemia, unspecified (principal); F17.210 Nicotine dependence, cigarettes, uncomplicated; R63.4 Abnormal weight loss; Z68.1 Body mass index [BMI] 19.9 or less, adult; C05.1 Malignant neoplasm of soft palate; Z79.899 Other long term (current) drug therapy
CPT/HCPCS: 36415; 80053; 82728; 83540; 83550; 85025; 85651; 86140; 99204; 99214

== ENCOUNTER → 2023-02-21 11:21 | Outpatient (BNVA) | payer MEDICARE, MEDICAID, SELFPAY | PROVIDERS: PCP Nurse Practitioner; Visit Provider Otolaryngology | DX: C05.1 Malignant neoplasm of soft palate (principal) | CPT/HCPCS: 99024; 99212 ==

== ENCOUNTER → 2023-03-24 09:55 | Outpatient (BNVA) | payer MEDICARE, MEDICAID, SELFPAY | PROVIDERS: PCP Nurse Practitioner; Visit Provider Otolaryngology | DX: C05.1 Malignant neoplasm of soft palate (principal) | CPT/HCPCS: 99212 ==

== ENCOUNTER 2023-04-04 12:42 | Outpatient (CLI) | payer MEDICARE, MEDICAID, SELFPAY ==
[2023-04-04] MEDS: iohexol 350 mg/mL 500 mL Btl (per mL) PO (12:51)
--- NOTE | 2023-04-04 13:30 | CT_ITS ---
WS: [id number] CT CHEST, ABDOMEN AND PELVIS WITHOUT CONTRAST HISTORY: C05.1 - Malignant neoplasm of soft palate TECHNIQUE: Contiguous 5 mm axial imaging performed through the chest, abdomen and pelvis without IV c ontrast, oral contrast has not been provided. Coronal and sagittal reformats chest. Coronal and sagit darryn reformats through the abdomen and pelvis. All CT scans at [facility] use at least one of these dose optimization techniques: automated exposure control; mA and/or kV adjustment per patient s ize (includes targeted exams where dose is matched to clinical indication); or iterative reconstructi on. CONTRAST: None DLP: 344.26 mGy.cm COMPARISON: 10/05/[address]: Marked pulmonary hyperexpansion and centrilobular emphysema. Mild interstitial thickening i n the periphery of the lungs. Probably due to respiratory bronchitis from smoking. Benign granuloma i n the central LEFT lung. No pulmonary mass or nodule. No pneumonia. No pericardial or pleural effusio ns. There is extensive coronary artery calcification. No mediastinal or hilar adenopathy identified o n this unenhanced exam. Small hiatal hernia. Abdomen CT: Liver is top normal size. Lack of contrast decreases the sensitivity of this examination. Splenic granulomata. Negative gallbladder and adrenal glands. Pancreas is atrophied. Mild atheroscle rosis aorta with no aneurysm. No renal obstruction or calcifications. Stomach is distended with oral contrast. No small bowel obstruction. Normal appendix. Mild mucosal th ickening involving the descending and sigmoid colon. There are few scattered diverticula. No acute di verticulitis. Pelvic CT: No free fluid. Well-distended urinary bladder. No mass or adenopathy. Increase in thoracic kyphosis. Diffuse osteopenia. T12 50% compression fracture with kyphoplasty. No osteoblastic or osteolytic bone lesions are identified. IMPRESSION: 1. Advanced centrilobular emphysema. No pneumonia. 2. No mediastinal or hilar adenopathy. 3. Lack of IV contrast limits sensitivity of this examination. There are no visceral organ masses lia ntified. No adenopathy within the abdomen or pelvis. 4. Continued mild thickening of the distal colon. This can be seen with chronic diverticulitis. No in terval change. 5. No ascites. 6. T12 50% compression fracture with kyphoplasty.
== END 2023-04-04 12:43 | disposition home or self-care (01) ==
PROVIDERS: PCP Nurse Practitioner; Visit Provider Nurse Practitioner
DX: C05.1 Malignant neoplasm of soft palate (principal); J44.9 Chronic obstructive pulmonary disease, unspecified; N18.30 Chronic kidney disease, stage 3 unspecified
CPT/HCPCS: 71250; 74176; Q9967

== ENCOUNTER → 2023-04-23 09:32 | Outpatient (BNVA) | payer MEDICARE, MEDICAID, SELFPAY | PROVIDERS: PCP Nurse Practitioner; Visit Provider Otolaryngology | DX: C05.1 Malignant neoplasm of soft palate (principal) | CPT/HCPCS: 99212; 99213 ==

== ENCOUNTER 2023-05-20 09:55 | Oncology outpatient (recurring) (ONCR) | payer MEDICARE, MEDICAID, SELFPAY ==
[2023-05-20 10:09] VITALS: BP 94/73; PULSE 76; RESP 16; TEMP 35.7; O2SAT 99
[2023-05-20 10:31] LABS: Basophils # 0.1 10^3/uL (0.0-0.1); Basophils % 1.1 %; Eosinophils % 0.7 %; Hematocrit 30.1 % (36-47); Lymphocytes # 1.4 10^3/uL (0.8-4.8); Lymphocytes % 26.5 %; Mean Corpuscular HGB Conc 33.6 g/dL (30-55); Mean Corpuscular Hemoglobin 32.3 pg (27-33); Mean Corpuscular Volume 96.2 fl (85-98); Mean Platelet Volume 9.3 fL (7.4-10.4); Monocytes # 0.4 10^3/uL (0.2-0.9); Monocytes % 6.6 %; Neutrophils # 3.51 10^3/uL (1.8-7.7); Neutrophils % 64.7 %; Nucleated Red Blood Cells % 0 %; Platelet Count 226 10^3/cmm (157-399); Red Blood Count 3.13 10^6/uL (3.85-5.65); Red Cell Distribution Width 13.2 % (12.1-15.1); White Blood Count 5.43 10^3/uL (3.29-11.43)
[2023-05-20 11:02] LABS: Alanine Aminotransferase 42 U/L (0-33); Albumin Level 3.2 g/dL (3.5-5.2); Alkaline Phosphatase 111 U/L (35-105); Anion Gap 13.6 (5-19); Aspartate Amino Transferase 73 U/L (0-32); Blood Urea Nitrogen 8 mg/dL (6-20); Calcium 8.3 mg/dL (8.5-10.5); Carbon Dioxide 28 mmol/L (22-29); Chloride 97 mmol/L (98-107); Chol HDL Ratio 1.41 mg/dL (0.0-4.40); Cholesterol 169 mg/dL (0-200); Free T4 Free Thyroxine 1.12 ng/dL (0.82-1.77); Globulin 2.7 g/dL (1.3-4.6); Glomerular Filtration Rate 43.7 mL/min (90-130); Glucose 126 mg/dL (65-115); HDL Cholesterol 120 mg/dL (60-100); LDL Cholesterol Calculated 20 mg/dL (50-129); Osmolality Calculated 280 mOsm/kg (285-295); Potassium 3.6 mmol/L (3.5-5.1); Sodium 135 mmol/L (136-145); T3 Free 1.1 PG/ML (2.0-4.4); Thyroid Stimulating Hormone 1.27 uIU/mL (0.27-4.20); Total Bilirubin 0.3 mg/dL (0.15-1.2); Total Protein 5.9 g/dL (6.6-8.7); Triglycerides 143 mg/dL (0-150); VLDL Cholestrol Calculation 29 mg/dL (0-30)
[2023-05-20 13:29] LABS: 25 Hydroxy Vitamin D 40 ng/mL (30-100)
[2023-05-20 14:25] LABS: Vitamin B12 > 2000 pg/mL (232-1245)
[2023-05-20 17:07] LABS: Ferritin 51 ng/mL (15-150); Iron 65 ug/dL (37-145); Percent Saturation 34.3 % (20-50); Total Iron Binding Capacity 189 mcg/dl; Unsaturated Iron Binding 124 ug/dL (112-347)
== END 2023-06-05 23:59 | disposition home or self-care (01) ==
PROVIDERS: Nurse Practitioner Family; PCP Nurse Practitioner; Visit Provider Internal Medicine Medical Oncology
DX: D64.9 Anemia, unspecified (principal); F17.210 Nicotine dependence, cigarettes, uncomplicated; I48.20 Chronic atrial fibrillation, unspecified; N18.30 Chronic kidney disease, stage 3 unspecified; Z79.899 Other long term (current) drug therapy
CPT/HCPCS: 36415; 80053; 80061; 82306; 82607; 82728; 83540; 83550; 84439; 84443; 84481; 85025; 99214

== ENCOUNTER → 2023-07-11 10:56 | Outpatient (BNVA) | payer MEDICARE, MEDICAID, SELFPAY | PROVIDERS: PCP Nurse Practitioner; Visit Provider Nurse Practitioner Family | DX: J40 Bronchitis, not specified as acute or chronic (principal) | CPT/HCPCS: 71046 ==

== ENCOUNTER → 2023-08-05 09:25 | Outpatient (BNVA) | payer MEDICARE, MEDICAID, SELFPAY | PROVIDERS: PCP Nurse Practitioner; Visit Provider Nurse Practitioner Family | DX: I12.9 Hypertensive chronic kidney disease with stage 1 through stage 4 chronic kidney disease, or unspecified chronic kidney disease (principal); N18.30 Chronic kidney disease, stage 3 unspecified; F17.210 Nicotine dependence, cigarettes, uncomplicated; I48.20 Chronic atrial fibrillation, unspecified; I42.8 Other cardiomyopathies | CPT/HCPCS: 99214 ==

== ENCOUNTER → 2023-08-13 09:59 | Outpatient (BNVA) | payer MEDICARE, MEDICAID, SELFPAY | PROVIDERS: PCP Nurse Practitioner; Visit Provider Otolaryngology | DX: C05.1 Malignant neoplasm of soft palate (principal); R63.6 Underweight; Z68.1 Body mass index [BMI] 19.9 or less, adult; Z72.0 Tobacco use | CPT/HCPCS: 99214 ==

== ENCOUNTER 2023-08-20 11:26 | Oncology outpatient (recurring) (ONCR) | payer MEDICARE, MEDICAID, SELFPAY ==
[2023-08-20 12:04] LABS: Basophils # 0.1 10^3/uL (0.0-0.1); Basophils % 1.1 %; Eosinophils % 0.7 %; Hematocrit 30.2 % (36-47); Lymphocytes # 1.6 10^3/uL (0.8-4.8); Lymphocytes % 27.4 %; Mean Corpuscular HGB Conc 32.8 g/dL (30-55); Mean Corpuscular Hemoglobin 31.7 pg (27-33); Mean Corpuscular Volume 96.8 fl (85-98); Mean Platelet Volume 8.9 fL (7.4-10.4); Monocytes # 0.5 10^3/uL (0.2-0.9); Monocytes % 8.4 %; Neutrophils # 3.53 10^3/uL (1.8-7.7); Nucleated Red Blood Cells % 0 %; Platelet Count 238 10^3/cmm (157-399); Red Blood Count 3.12 10^6/uL (3.85-5.65); Red Cell Distribution Width 14.6 % (12.1-15.1); White Blood Count 5.69 10^3/uL (3.29-11.43)
[2023-08-20 12:26] LABS: Alanine Aminotransferase 40 U/L (0-33); Albumin Level 3.3 g/dL (3.5-5.2); Alkaline Phosphatase 135 U/L (35-105); Anion Gap 12.9 (5-19); Aspartate Amino Transferase 70 U/L (0-32); Blood Urea Nitrogen 10 mg/dL (6-20); Calcium 8.2 mg/dL (8.5-10.5); Carbon Dioxide 28 mmol/L (22-29); Chloride 97 mmol/L (98-107); Ferritin 42 ng/mL (15-150); Globulin 2.7 g/dL (1.3-4.6); Glomerular Filtration Rate 40.1 mL/min (90-130); Glucose 76 mg/dL (65-115); Iron 99 ug/dL (37-145); Osmolality Calculated 276 mOsm/kg (285-295); Percent Saturation 41.7 % (20-50); Potassium 3.9 mmol/L (3.5-5.1); Sodium 134 mmol/L (136-145); Thyroid Stimulating Hormone 1.27 uIU/mL (0.27-4.20); Total Bilirubin 0.3 mg/dL (0.15-1.2); Total Iron Binding Capacity 237 mcg/dl; Unsaturated Iron Binding 138 ug/dL (112-347)
[2023-08-20 12:48] LABS: T3 Free 1.4 PG/ML (2.0-4.4)
== END 2023-09-04 23:59 | disposition home or self-care (01) ==
PROVIDERS: Nurse Practitioner Family; PCP Nurse Practitioner; Visit Provider Internal Medicine Medical Oncology
DX: D64.9 Anemia, unspecified (principal); F17.210 Nicotine dependence, cigarettes, uncomplicated; I48.20 Chronic atrial fibrillation, unspecified; N18.30 Chronic kidney disease, stage 3 unspecified; Z79.899 Other long term (current) drug therapy
CPT/HCPCS: 36415; 80053; 82728; 83540; 83550; 84443; 84481; 85025; 99213

== ENCOUNTER → 2023-09-09 09:11 | Outpatient (BNVA) | payer MEDICARE, MEDICAID, SELFPAY | PROVIDERS: PCP Nurse Practitioner; Visit Provider Otolaryngology | DX: C05.1 Malignant neoplasm of soft palate (principal); F17.200 Nicotine dependence, unspecified, uncomplicated | CPT/HCPCS: 99212; 99213 ==

== ENCOUNTER → 2023-10-09 11:14 | Outpatient (BNVA) | payer MEDICARE, MEDICAID, SELFPAY | PROVIDERS: PCP Nurse Practitioner; Visit Provider Otolaryngology | DX: C05.1 Malignant neoplasm of soft palate (principal); Z87.891 Personal history of nicotine dependence | CPT/HCPCS: 99213; 99214 ==

== ENCOUNTER → 2023-11-06 11:43 | Outpatient (BNVA) | payer OTHER, MEDICAID, SELFPAY | PROVIDERS: PCP Nurse Practitioner; Visit Provider Nurse Practitioner | DX: N18.32 Chronic kidney disease, stage 3b (principal); D50.9 Iron deficiency anemia, unspecified; E55.9 Vitamin D deficiency, unspecified | CPT/HCPCS: 80069; 81000; 82306; 82310; 83550; 83970; 85025 ==

== ENCOUNTER 2023-11-18 09:13 | Oncology outpatient (recurring) (ONCR) | payer OTHER, MEDICAID, SELFPAY ==
--- NOTE | 2023-11-18 09:15 | XRR_ITS ---
PROCEDURE INFORMATION: Exam: XR Thoracic Spine Exam date and time: 11/18/2023 9:24 AM Age: 48 years old Clinical indication: Pain in thoracic spine; Prior surgery; Surgery date: 6+ months; Patient HX: Mid back pain for several years previous kyphoplasty, history of throat cancer; Additional info: M47.819 - spondylosis without myelopathy or radiculopathy. . . TECHNIQUE: Imaging protocol: Radiologic exam of the thoracic spine. Views: 3 views. COMPARISON: CT thoracic spin wo con* [id number] 01/16/2020 08:35 FINDINGS: Bones/joints: Previous T12 kyphoplasty/vertebroplasty. There is a mild age-indeterminate compression fracture deformity of T9 that has occurred sometime since the prior CT of the thoracic spine from June 12, 2020. There is a stable mild compression fracture deformity of T8. Multilevel chronic degenerative changes throughout the spine. Soft tissues: Unremarkable. Lungs: The lungs are hyperinflated with COPD changes. Several old calcified granulomata in the mid left lung. XR/XR thoracic spine 3V* [id number] IMPRESSION: 1. Age-indeterminate compression fracture deformity of T9 that is occurred sometime since the prior CT from June 12, 2020. 2. Stable T12 kyphoplasty and stable T8 compression fracture deformity 3. Multilevel chronic degenerative changes throughout the thoracic spine
== END 2023-12-05 23:59 | disposition home or self-care (01) ==
LOC: RAD 11-19 12:04 → ONCMED 11-24 15:03
PROVIDERS: PCP Nurse Practitioner; Visit Provider Internal Medicine Medical Oncology
DX: D64.9 Anemia, unspecified (principal); F17.210 Nicotine dependence, cigarettes, uncomplicated; I48.20 Chronic atrial fibrillation, unspecified; N18.30 Chronic kidney disease, stage 3 unspecified; Z79.899 Other long term (current) drug therapy
CPT/HCPCS: 72072

== ENCOUNTER 2023-11-18 09:15 | Outpatient (CLI) | payer OTHER, MEDICAID, SELFPAY ==
--- NOTE | 2023-11-18 09:21 | US_ITS ---
WS: [id number] RENAL ULTRASOUND HISTORY: CHRONIC KIDNEY DZ STAGE 3B COMPARISON: None available. TECHNIQUE: 2-D and color Doppler imaging of the kidney submitted. Right kidney: 7.1 cm x 3.6 cm x 2.6 cm. Cortex: 0.8 cm Mild atrophy and cortical thinning. Kidney is decreased in size since the prior study from 2017. Othe rwise negative. Left kidney: 6.8 cm x 3.2 cm x 4.2 cm. Cortex: 1.0 cm Mild atrophy and cortical thinning. No obstruction. No mass. Kidney is decreased in size since the pr ior study. Aorta: Normal. Urinary Bladder: Nondistended. US/US renal BI* [id number] IMPRESSION: 1. Mild progression of cortical thinning and atrophy since 12/05/2016. 2. No renal obstruction.
== END 2023-11-18 09:16 | disposition home or self-care (01) ==
LOC: RAD 09:17
PROVIDERS: PCP Nurse Practitioner; Visit Provider Nurse Practitioner
DX: N18.32 Chronic kidney disease, stage 3b (principal); N26.1 Atrophy of kidney (terminal)
CPT/HCPCS: 76770

== ENCOUNTER 2023-12-18 09:40 | Oncology outpatient (recurring) (ONCR) | payer MEDICARE, MEDICAID, SELFPAY ==
[2023-12-18 09:56] LABS: Basophils # 0.1 10^3/uL (0.0-0.1); Basophils % 0.8 %; Eosinophils % 0.6 %; Hematocrit 27.6 % (36-47); Lymphocytes # 1.6 10^3/uL (0.8-4.8); Lymphocytes % 24.7 %; Mean Corpuscular HGB Conc 34.1 g/dL (30-55); Mean Corpuscular Hemoglobin 32.1 pg (27-33); Mean Corpuscular Volume 94.2 fl (85-98); Mean Platelet Volume 8.7 fL (7.4-10.4); Monocytes # 0.5 10^3/uL (0.2-0.9); Monocytes % 8.4 %; Neutrophils % 64.9 %; Nucleated Red Blood Cells % 0 %; Platelet Count 273 10^3/cmm (157-399); Red Blood Count 2.93 10^6/uL (3.85-5.65); Red Cell Distribution Width 16.5 % (12.1-15.1); White Blood Count 6.32 10^3/uL (3.29-11.43)
[2023-12-18 10:13] LABS: Alanine Aminotransferase 20 U/L (0-33); Alkaline Phosphatase 137 U/L (35-105); Anion Gap 16.2 (5-19); Aspartate Amino Transferase 47 U/L (0-32); Blood Urea Nitrogen 7 mg/dL (6-20); Calcium 7.9 mg/dL (8.5-10.5); Carbon Dioxide 25 mmol/L (22-29); Chloride 95 mmol/L (98-107); Globulin 2.9 g/dL (1.3-4.6); Glomerular Filtration Rate 43.5 mL/min (90-130); Glucose 103 mg/dL (65-115); Osmolality Calculated 272 mOsm/kg (285-295); Potassium 4.2 mmol/L (3.5-5.1); Sodium 132 mmol/L (136-145); Total Bilirubin 0.3 mg/dL (0.15-1.2); Total Protein 5.9 g/dL (6.6-8.7)
[2023-12-18 11:11] LABS: Ferritin 98 ng/mL (15-150); Iron 106 ug/dL (37-145); Percent Saturation 72.1 % (20-50); Total Iron Binding Capacity 147 mcg/dl; Unsaturated Iron Binding 41 ug/dL (112-347)
[2023-12-18 11:45] LABS: Reticulocyte % 1.6 % (0.5-2.0)
[2023-12-18 18:34] LABS: 25 Hydroxy Vitamin D 61 ng/mL (30-100)
[2023-12-18 21:05] LABS: Vitamin B12 > 2000 pg/mL (232-1245)
[2023-12-19 04:42] LABS: Folate Level > 20.0 ng/mL (4.8-37.3)
[2023-12-19 09:29] LABS: PROTEIN, TOTAL 5.6 g/dL (6.1-8.1)
[2023-12-19 15:33] LABS: ALBUMIN 2.9 g/dL (3.8-4.8); ALPHA 1 GLOBULIN 0.4 g/dL (0.2-0.3); ALPHA 2 GLOBULIN 0.6 g/dL (0.5-0.9); BETA 1 GLOBULIN 0.3 g/dL (0.4-0.6); BETA 2 GLOBULIN 0.4 g/dL (0.2-0.5)
[2023-12-21 15:28] LABS: Zinc Level, Serum or Plasma 42 mcg/dL (60-130)
[2023-12-22 07:50] LABS: Methylmalonic Acid 218 nmol/L (87-318)
[2023-12-22 11:29] LABS: Copper Level 89 mcg/dL (70-175)
[2023-12-23 16:24] LABS: Immunofixation Serum Normal pattern.
[2023-12-25 17:19] LABS: Soluble Transferrin Receptor 1.09 mg/L (0.76-1.76)
== END 2024-01-04 23:59 | disposition home or self-care (01) ==
PROVIDERS: Internal Medicine; PCP Nurse Practitioner; Visit Provider Internal Medicine Medical Oncology
DX: D64.9 Anemia, unspecified (principal); C05.1 Malignant neoplasm of soft palate; I48.20 Chronic atrial fibrillation, unspecified
CPT/HCPCS: 36415; 80053; 82306; 82525; 82607; 82728; 82746; 83540; 83550; 83921; 84155; 84165; 84238; 84630; 85025; 85045; 86334; 86335

== ENCOUNTER 2024-01-06 08:03 | Oncology outpatient (recurring) (ONCR) | payer MEDICARE, MEDICAID, SELFPAY ==
--- NOTE | 2024-01-06 08:30 | CTR_ITS ---
PROCEDURE INFORMATION: Exam: CT Neck With Contrast Exam date and time: 01/06/2024 8:43 AM Age: 48 years old Clinical indication: Condition or disease; Cancer; Throat; Additional info: Squamous cell carcinoma of soft palate TECHNIQUE: Imaging protocol: Computed tomography of the neck with contrast. Radiation optimization: All CT scans at this facility use at least one of these dose optimization techniques: automated exposure control; mA and/or kV adjustment per patient size (includes targeted exams where dose is matched to clinical indication); or iterative reconstruction. Contrast material: OMNI 350; Contrast volume: 60 ml; Contrast route: INTRAVENOUS (IV); COMPARISON: CR XR cervical spine 3V* [id number] 11/01/2020 10:51 AM RADIATION DOSE METRICS: Total DLP (mGy-cm): 128.1 FINDINGS: Salivary glands: Normal. Glands are normal in size. Pharynx: Asymmetrical thickening and asymmetrical enhancement of the right tonsillar fossa when compared to the contralateral side (series 3, image 33) measuring 1 x 0.9 centimeters. Prevertebral and retropharyngeal spaces: Unremarkable. Larynx: Unremarkable. Epiglottis is normal. Thyroid: Normal. No enlarged or calcified nodules. Trachea: Tracheal diverticulum. Lungs: Upper lobe centrilobular emphysema. Esophagus: Proximal distal esophageal wall thickening. Lymph nodes: Unremarkable. No lymphadenopathy. Bones/joints: Unremarkable. No acute fracture. Soft tissues: Unremarkable. No significant soft tissue swelling. CT/CT neck w con* [id number] IMPRESSION: Asymmetrical thickening and asymmetrical enhancement of the right tonsillar fossa when compared to the contralateral side (series 3, image 33). Further evaluation with PET-CT may be obtained.
[2024-01-06] MEDS: iohexol 350 mg/mL 500 mL Btl (per mL) IV (08:52)
== END 2024-02-04 23:59 | disposition home or self-care (01) ==
LOC: ONCMED 08:03 → RAD 08:06 → ONCMED 01-20 08:27
PROVIDERS: PCP Nurse Practitioner; Visit Provider Internal Medicine
DX: C05.1 Malignant neoplasm of soft palate; Z53.9 Procedure and treatment not carried out, unspecified reason
CPT/HCPCS: 70491; Q9967

== ENCOUNTER → 2024-01-20 09:47 | Outpatient (BNVA) | payer MEDICARE, MEDICAID, SELFPAY | PROVIDERS: PCP Nurse Practitioner; Visit Provider Nurse Practitioner Family | DX: I12.9 Hypertensive chronic kidney disease with stage 1 through stage 4 chronic kidney disease, or unspecified chronic kidney disease (principal); N18.30 Chronic kidney disease, stage 3 unspecified; Z72.0 Tobacco use; I48.20 Chronic atrial fibrillation, unspecified | CPT/HCPCS: 99214 ==

== ENCOUNTER 2024-01-27 09:27 | Outpatient (CLI) | payer MEDICARE, MEDICAID, SELFPAY ==
--- NOTE | 2024-01-27 11:00 | PETR_ITS ---
PROCEDURE INFORMATION: Exam: PET/CT Skull Base to Mid-thigh Exam date and time: 01/27/2024 10:15 AM Age: 48 years old Clinical indication: Condition or disease; Primary cancer: Malignant neoplasm of the soft palate, newly diagnosed; Initial oncological staging LABS AND CLINICAL REPORTS: Glucose: 142 mg/dl Treatment strategy for malignancy (PET staging): Initial Staging (PI) TECHNIQUE: Imaging protocol: Following at least four-hour fasting and following the injection of radiopharmaceutical, low dose CT images were obtained. Then, PET images were obtained. Attenuation corrected images were constructed using the CT scan. Fused images of PET and CT were reviewed. The standardized uptake values (SUV) reported below are maximum values within a region of interest, expressed in gm/ml. Exam includes orbital meatal line to mid-thigh. Radiopharmaceutical: 13.18 mCi F-18 FDG (Fluorodeoxyglucose), IV. Time of imaging post radiopharmaceutical administration: 1 hour Injection site: Left antecubital vein COMPARISON: CT neck w con* [id number] 01/06/2024 8:43 AM FINDINGS: Brain: Visualized brain has normal physiologic uptake. Pharynx: No abnormal uptake. Larynx: No abnormal uptake. Lungs, pleura and trachea: No abnormal uptake. 6 mm calcified granuloma in the left lower lobe. Heart: Normal physiologic uptake. There is no cardiomegaly. Coronary artery calcification is present. There is no pericardial effusion. Mediastinal space: No abnormal uptake. Incidental finding of 1.2 cm air containing paratracheal cyst. Liver: No abnormal uptake. Gallbladder and biliary ducts: No abnormal uptake. No calcified gallstones. Pancreas: No abnormal uptake. Spleen: No abnormal uptake. The spleen is normal in size with small calcified granulomas. Adrenal glands: No abnormal uptake. No nodules. Kidneys and ureters: Normal physiologic uptake. No hydronephrosis. Stomach and bowel: No abnormal uptake. Vasculature: No abnormal uptake. No aortic aneurysm. Lymph nodes: No abnormal uptake. No lymphadenopathy in the head, neck, chest, abdomen, pelvis, and extremities. There is sequela of exposure to granulomatous disease with calcified granulomas in normal size subcarinal and left hilar lymph nodes. Skeleton: No abnormal uptake in the visualized axial and appendicular skeleton. Severe chronic compression of T9 and T12, status post T12 vertebroplasty. Soft tissues: No abnormal uptake in the visualized head, neck, chest, abdomen, pelvis, and extremities. PET/PET skull to thigh INIT [id number] assessment IMPRESSION: No abnormal radiotracer uptake.
== END 2024-01-27 09:28 | disposition home or self-care (01) ==
PROVIDERS: PCP Nurse Practitioner; Visit Provider Internal Medicine
DX: C05.1 Malignant neoplasm of soft palate (principal); J84.10 Pulmonary fibrosis, unspecified; G95.29 Other cord compression
CPT/HCPCS: 78815; A9552

== ENCOUNTER 2024-02-16 11:09 | Oncology outpatient (recurring) (ONCR) | payer MEDICARE, MEDICAID, SELFPAY ==
[2024-02-16 11:44] LABS: Basophils # 0.1 10^3/uL (0.0-0.1); Basophils % 0.9 %; Eosinophils % 0.3 %; Hematocrit 28.7 % (36-47); Lymphocytes # 1.3 10^3/uL (0.8-4.8); Lymphocytes % 18.6 %; Mean Corpuscular HGB Conc 33.4 g/dL (30-55); Mean Corpuscular Hemoglobin 31.9 pg (27-33); Mean Corpuscular Volume 95.3 fl (85-98); Mean Platelet Volume 8.5 fL (7.4-10.4); Monocytes # 0.5 10^3/uL (0.2-0.9); Monocytes % 7.1 %; Neutrophils # 5.06 10^3/uL (1.8-7.7); Neutrophils % 72.7 %; Nucleated Red Blood Cells % 0 %; Platelet Count 266 10^3/cmm (157-399); Red Blood Count 3.01 10^6/uL (3.85-5.65); Red Cell Distribution Width 13.6 % (12.1-15.1); White Blood Count 6.95 10^3/uL (3.29-11.43)
[2024-02-16 12:04] LABS: Alanine Aminotransferase 29 U/L (0-33); Albumin Level 3.3 g/dL (3.5-5.2); Alkaline Phosphatase 134 U/L (35-105); Anion Gap 16.7 (5-19); Aspartate Amino Transferase 64 U/L (0-32); Blood Urea Nitrogen 8 mg/dL (6-20); Calcium 8.3 mg/dL (8.5-10.5); Carbon Dioxide 24 mmol/L (22-29); Chloride 96 mmol/L (98-107); Ferritin 121 ng/mL (15-150); Globulin 2.9 g/dL (1.3-4.6); Glomerular Filtration Rate 47.7 mL/min (90-130); Glucose 104 mg/dL (65-115); Iron 112 ug/dL (37-145); Osmolality Calculated 273 mOsm/kg (285-295); Potassium 4.7 mmol/L (3.5-5.1); Sodium 132 mmol/L (136-145); Total Bilirubin 0.2 mg/dL (0.15-1.2); Total Iron Binding Capacity 160 mcg/dl; Total Protein 6.2 g/dL (6.6-8.7); Unsaturated Iron Binding 48 ug/dL (112-347)
== END 2024-03-06 23:55 | disposition home or self-care (01) ==
PROVIDERS: PCP Nurse Practitioner; Visit Provider Internal Medicine
DX: F17.210 Nicotine dependence, cigarettes, uncomplicated; Z08 Encounter for follow-up examination after completed treatment for malignant neoplasm; D63.1 Anemia in chronic kidney disease; Z85.818 Personal history of malignant neoplasm of other sites of lip, oral cavity, and pharynx; F10.20 Alcohol dependence, uncomplicated; I12.9 Hypertensive chronic kidney disease with stage 1 through stage 4 chronic kidney disease, or unspecified chronic kidney disease; N18.30 Chronic kidney disease, stage 3 unspecified
CPT/HCPCS: 36415; 80053; 82728; 83540; 83550; 85025; 99214

== ENCOUNTER → 2024-03-02 09:34 | Outpatient (BNVA) | payer MEDICARE, MEDICAID, SELFPAY | PROVIDERS: PCP Nurse Practitioner; Visit Provider Nurse Practitioner | DX: N18.32 Chronic kidney disease, stage 3b (principal); E55.9 Vitamin D deficiency, unspecified; N18.9 Chronic kidney disease, unspecified | CPT/HCPCS: 80053; 82043; 82306; 82310; 83970; 85025 ==

== ENCOUNTER → 2024-03-05 09:21 | Outpatient (BNVA) | payer MEDICARE, MEDICAID, SELFPAY | PROVIDERS: PCP Nurse Practitioner; Visit Provider Otolaryngology | DX: N18.32 Chronic kidney disease, stage 3b (principal) | CPT/HCPCS: 80069 ==

== ENCOUNTER 2024-03-15 08:40 | Outpatient (CLI) | payer MEDICARE, MEDICAID, SELFPAY ==
--- NOTE | 2024-03-15 08:46 | FL_ITS ---
WS: [email or web address] FL barium swallow [id number] REASON FOR EXAM: DYSPHAGIA FLUOROSCOPY TIME: 2min [id number] # OF SPOT FILMS: Multiple FINDINGS: Patient was examined in the standing upright AP and lateral projection, prone BERG, and supine positio n. The swallowing of barium was monitored fluoroscopically and multiple spot films obtained. The examina tion extended from the oropharynx to the gastric fundus. There is mild narrowing in the mid cervical esophagus which appears to be due to posterior impingemen t from degenerative spondylosis in the cervical spine at C4-C5. Primary peristaltic wave with significantly weakened in the thoracic esophagus. There is moderate ret ention of contrast. No tertiary contractions were identified. There is a small hiatal hernia. There is no stricture at the gastroesophageal junction. There is no significant gastroesophageal reflux. FL/FL barium swallow [id number] IMPRESSION: Cervical degenerative spondylosis impingement of the cervical esophagus. Esophageal dysmotility as above.
== END 2024-03-15 08:41 | disposition home or self-care (01) ==
LOC: RAD 08:40
PROVIDERS: PCP Nurse Practitioner; Visit Provider Specialist
DX: R13.19 Other dysphagia (principal); M47.812 Spondylosis without myelopathy or radiculopathy, cervical region
CPT/HCPCS: 74220

== ENCOUNTER 2024-03-17 10:35 | Outpatient (CLI) | payer MEDICARE, MEDICAID, SELFPAY ==
--- NOTE | 2024-03-17 10:39 | FL_ITS ---
WS: [email or web address] FL barium swallow modifd [id number] REASON FOR EXAM: Other dysphagia FLUOROSCOPY TIME: 3min [id number] # OF SPOT FILMS: 0 FINDINGS: The examination was supervised by the speech therapy department. With the patient in the sitting upright lateral projection and AP projection swallowing of varying co nsistencies of barium was monitored fluoroscopically and video recorded for evaluation. Speech therapy department will render a detailed report of the swallowing. FL/FL barium swallow modifd [id number] IMPRESSION: Modified barium swallow as above.
== END 2024-03-17 10:36 | disposition home or self-care (01) ==
LOC: RAD 10:35
PROVIDERS: PCP Nurse Practitioner; Visit Provider Specialist
DX: R13.10 Dysphagia, unspecified (principal)
CPT/HCPCS: 74230; 92611

== ENCOUNTER → 2024-05-04 11:00 | Outpatient (BNVA) | payer MEDICARE, MEDICAID, SELFPAY | PROVIDERS: PCP Nurse Practitioner; Visit Provider Nurse Practitioner | DX: F41.9 Anxiety disorder, unspecified (principal); F32.9 Major depressive disorder, single episode, unspecified; K12.2 Cellulitis and abscess of mouth; J06.9 Acute upper respiratory infection, unspecified; I10 Essential (primary) hypertension; J43.9 Emphysema, unspecified; M54.16 Radiculopathy, lumbar region; R63.0 Anorexia; E78.5 Hyperlipidemia, unspecified; K21.9 Gastro-esophageal reflux disease without esophagitis | CPT/HCPCS: 80053; 82607; 82728; 83550; 85025 ==

== ENCOUNTER 2024-05-17 11:43 | Oncology outpatient (recurring) (ONCR) | payer MEDICARE, MEDICAID, SELFPAY | END 2024-06-05 23:59 | disposition home or self-care (01) | LOC: ONCMED 11:44 | PROVIDERS: PCP Nurse Practitioner; Visit Provider Internal Medicine Hematology & Oncology | DX: C05.1 Malignant neoplasm of soft palate (principal); D50.9 Iron deficiency anemia, unspecified | CPT/HCPCS: 99213 ==

== ENCOUNTER → 2024-07-12 11:25 | Outpatient (BNVA) | payer MEDICARE, MEDICAID, SELFPAY | PROVIDERS: PCP Nurse Practitioner; Visit Provider Nurse Practitioner | DX: E55.9 Vitamin D deficiency, unspecified (principal); N18.32 Chronic kidney disease, stage 3b | CPT/HCPCS: 80069; 82043; 82306; 82310; 83930; 83970; 85025 ==

== ENCOUNTER 2024-07-29 06:30 | Outpatient (RCR) | payer MEDICARE, MEDICAID, SELFPAY | END 2024-08-06 23:59 | disposition home or self-care (01) | LOC: TST 06:30 | PROVIDERS: PCP Nurse Practitioner; Visit Provider Specialist | DX: R13.12 Dysphagia, oropharyngeal phase (principal) | CPT/HCPCS: 92610 ==

== ENCOUNTER 2024-08-18 10:45 | Oncology outpatient (recurring) (ONCR) | payer MEDICARE, MEDICAID, SELFPAY ==
[2024-08-18 11:48] LABS: Basophils % 0.7 %; Eosinophils % 0.3 %; Hematocrit 27.6 % (36-47); Lymphocytes # 1.2 10^3/uL (0.8-4.8); Lymphocytes % 19.7 %; Mean Corpuscular HGB Conc 34.1 g/dL (30-55); Mean Corpuscular Hemoglobin 32.4 pg (27-33); Mean Corpuscular Volume 95.2 fl (85-98); Mean Platelet Volume 8.9 fL (7.4-10.4); Monocytes # 0.4 10^3/uL (0.2-0.9); Monocytes % 6.4 %; Neutrophils # 4.28 10^3/uL (1.8-7.7); Neutrophils % 72.2 %; Nucleated Red Blood Cells % 0 %; Platelet Count 216 10^3/cmm (157-399); White Blood Count 5.93 10^3/uL (3.29-11.43)
[2024-08-18 12:09] LABS: Alanine Aminotransferase 24 U/L (0-33); Albumin Level 3.1 g/dL (3.5-5.2); Alkaline Phosphatase 144 U/L (35-105); Anion Gap 17.3 (5-19); Aspartate Amino Transferase 47 U/L (0-32); Blood Urea Nitrogen 7 mg/dL (6-20); Calcium 8.1 mg/dL (8.5-10.5); Carbon Dioxide 27 mmol/L (22-29); Chloride 94 mmol/L (98-107); Creatinine Clr Calc Pharmacy 22.9827; Ferritin 145 ng/mL (15-150); Globulin 2.6 g/dL (1.3-4.6); Glomerular Filtration Rate 43.5 mL/min (90-130); Glucose 121 mg/dL (65-115); Iron 99 ug/dL (37-145); Osmolality Calculated 277 mOsm/kg (285-295); Percent Saturation 72.2 % (20-50); Potassium 4.3 mmol/L (3.5-5.1); Sodium 134 mmol/L (136-145); Total Bilirubin 0.3 mg/dL (0.15-1.2); Total Iron Binding Capacity 137 mcg/dl; Total Protein 5.7 g/dL (6.6-8.7); Unsaturated Iron Binding 38 ug/dL (112-347)
== END 2024-09-03 23:59 | disposition home or self-care (01) ==
PROVIDERS: Nurse Practitioner Family; PCP Nurse Practitioner; Visit Provider Internal Medicine
DX: D50.9 Iron deficiency anemia, unspecified (principal); M81.0 Age-related osteoporosis without current pathological fracture; F17.210 Nicotine dependence, cigarettes, uncomplicated; Z85.818 Personal history of malignant neoplasm of other sites of lip, oral cavity, and pharynx
CPT/HCPCS: 36415; 80053; 82728; 83540; 83550; 85025; 99214

== ENCOUNTER 2024-09-15 09:20 | Outpatient (CLI) | payer MEDICARE, MEDICAID, SELFPAY ==
--- NOTE | 2024-09-15 09:23 | CT_ITS ---
WS: [email or web address] CT NECK TECHNIQUE: Contrast-enhanced CT of the neck with coronal and sagittal reformatted images. CLINICAL INFORMATION: MALIGNANT NEOPLASM OF OVERLAPPING SITES OF OROPHARYNX COMPARISON: 01/06/2024 and PET/CT 01/27/2024 DLP: 128.[address] scans at [facility] use at least one of these dose optimization techniques: automated exposure control; mA and/or kV adjustment per patient size (includes targeted exams where dose is matched to clinical indication); or iterative reconstruction. FINDINGS: Deep to the palpable marker LEFT neck there is a low-attenuation heterogeneously enhancing nodule measuring 10 x 10 mm. Associated enhancing nodular component and low-attenuation cystic component. This is deep to the LEFT parotid gland suspicious for metastatic disease considering history. This is new since the neck CT 01/06/2024 and PET/CT 01/27. Parotid glands normal. Submandibular glands are normal. A few slightly prominent enhancing submandibular and sublingual lymph nodes. Postoperative changes in the soft palate. Normal posterior nasopharynx. Normal parapharyngeal fat. No evidence of supraglottic or glottic mass. Normal subglottic airway. Tiny bilateral thyroid nodules. Lung apices are well aerated. CT/CT neck w con* [id number] IMPRESSION: 1. Deep to the palpable marker LEFT neck is a heterogeneously enhancing cystic and solid nodule measuring 10 x 10 mm suspicious for metastatic disease consid ering history. Consider restaging with PET/CT. 2. A few normal sized enhancing LEFT greater than RIGHT submandibular and subl ingual lymph nodes. 3. No visualized supraglottic or glottic mass. 4. Prior postoperative changes soft palate
[2024-09-15] MEDS: iohexol 350 mg/mL 500 mL Btl (per mL) IV (10:02)
== END 2024-09-15 09:21 | disposition home or self-care (01) ==
PROVIDERS: PCP Nurse Practitioner; Visit Provider Otolaryngology
DX: C10.8 Malignant neoplasm of overlapping sites of oropharynx (principal); R22.1 Localized swelling, mass and lump, neck; Z98.890 Other specified postprocedural states
CPT/HCPCS: 70491

== ENCOUNTER 2024-09-24 08:49 | Outpatient (CLI) | payer MEDICARE, MEDICAID, SELFPAY ==
--- NOTE | 2024-09-24 08:55 | PETR_ITS ---
PROCEDURE INFORMATION: Exam: PET/CT Skull Base to Mid-thigh Exam date and time: 09/24/2024 9:54 AM Age: 49 years old Clinical indication: Condition or disease; Primary cancer: Malignant neoplasm of head face and neck; Prior surgery; Surgery date: 6+ months; HX of throat cancer 1992, PT states it was surgically removed LABS AND CLINICAL REPORTS: Glucose: 116 mg/dl Treatment strategy for malignancy (PET staging): Restaging (PS) TECHNIQUE: Imaging protocol: Following at least four-hour fasting and following the injection of radiopharmaceutical, low dose CT images were obtained. Then, PET images were obtained. Attenuation corrected images were constructed using the CT scan. Fused images of PET and CT were reviewed. The standardized uptake values (SUV) reported below are maximum values within a region of interest, expressed in gm/ml. Exam includes orbital meatal line to mid-thigh. SUV normalization method: BodyWeight Radiopharmaceutical: 9.47 mCi F-18 FDG (Fluorodeoxyglucose), IV. Time of imaging post radiopharmaceutical administration: 45 minutes Injection site: left ac COMPARISON: CT neck 09/15/2024, PT PET skull to thigh INIT [id number] 01/27/2024 10:15 AM FINDINGS: Brain: Visualized brain has normal physiologic uptake. Pharynx: No abnormal uptake. Larynx: No abnormal uptake. Lungs, pleura and trachea: No abnormal uptake. A left lower lobe calcified granuloma is identified. Heart: Normal physiologic uptake. Mediastinal space: No abnormal uptake. Liver: No abnormal uptake. Gallbladder and biliary ducts: No abnormal uptake. Pancreas: No abnormal uptake. Spleen: No abnormal uptake. Splenic calcified granulomas are present. Adrenal glands: No abnormal uptake. Kidneys and ureters: Normal physiologic uptake. Stomach and bowel: No abnormal uptake. Intraperitoneal and retroperitoneal spaces: A small amount of free fluid in the pelvis is present. No abnormal uptake. Vasculature: No abnormal uptake. There are diffuse atherosclerotic calcifications, including within the coronary arteries. Lymph nodes: Uptake within left cervical lymph nodes is new since the prior PET-CT. Uptake within a small lymph node at the skull base anterior to the left C1-C2 articular facet on the left measuring 0.4 x 0[address] image 54 is noted, SUV max 6.8. Uptake within a left level 2 lymph node measuring 6 mm in short axis on CT image 61 is present, SUV max 7.3. A more inferiorly located left level 2 lymph node measuring 1.[address] image 64 is noted, SUV max 8.6. Benign-appearing calcified non radiotracer avid left hilar and mediastinal lymph nodes are present. Skeleton: No abnormal uptake in the visualized axial and appendicular skeleton. The bones appear demineralized. Degenerative changes of the spine are noted. Vertebroplasty cement within a moderate T12 vertebral body compression fracture is noted. Moderate thoracic spine kyphosis. Nonacute appearing non radiotracer avid mild T8 and moderate T9 vertebral body compression fractures are noted. An old appearing healed proximal left humeral fracture is noted. Soft tissues: Radiotracer uptake in the region of the soft tissues of the left arm and proximal forearm is noted, likely related to presence of intravenous injected radiotracer with possible skin contamination in the antecubital region. No discrete mass is identified. PET/PET skull to thigh SUBS [id number] IMPRESSION: 1. Three left cervical lymph nodes are identified with elevated uptake concerning for malignancy, new since the prior PET-CT. 2. No additional areas of radiotracer avid malignancy. 3. Additional nonurgent findings as detailed above. COMMENTS: The provided patient weight utilized in SUV calculation of 28.123 kg/62 lb was verified by correlation with the data on the provided technologist worksheet.
== END 2024-09-24 08:50 | disposition home or self-care (01) ==
PROVIDERS: PCP Nurse Practitioner; Visit Provider Specialist
DX: C76.0 Malignant neoplasm of head, face and neck (principal); R59.0 Localized enlarged lymph nodes; Z85.21 Personal history of malignant neoplasm of larynx; J84.10 Pulmonary fibrosis, unspecified; D73.89 Other diseases of spleen; I70.90 Unspecified atherosclerosis; I25.10 Atherosclerotic heart disease of native coronary artery without angina pectoris; M85.80 Other specified disorders of bone density and structure, unspecified site; M47.899 Other spondylosis, site unspecified; M48.54XA Collapsed vertebra, not elsewhere classified, thoracic region, initial encounter for fracture; M40.294 Other kyphosis, thoracic region; Z87.81 Personal history of (healed) traumatic fracture; R93.6 Abnormal findings on diagnostic imaging of limbs
CPT/HCPCS: 78815; A9552

== ENCOUNTER → 2024-10-04 10:52 | Outpatient (BNVA) | payer MEDICARE, MEDICAID, SELFPAY | PROVIDERS: PCP Nurse Practitioner; Visit Provider Nurse Practitioner | DX: N18.30 Chronic kidney disease, stage 3 unspecified (principal) | CPT/HCPCS: 81000 ==

== ENCOUNTER 2024-10-28 10:10 | Oncology outpatient (recurring) (ONCR) | payer MEDICARE, MEDICAID, SELFPAY ==
[2024-10-14 11:17] LABS: Basophils % 0.5 %; Eosinophils % 0.6 %; Hematocrit 25.5 % (36-47); Lymphocytes # 1.2 10^3/uL (0.8-4.8); Lymphocytes % 18.3 %; Mean Corpuscular HGB Conc 32.2 g/dL (30-55); Mean Corpuscular Volume 99.6 fl (85-98); Mean Platelet Volume 9.5 fL (7.4-10.4); Monocytes # 0.3 10^3/uL (0.2-0.9); Monocytes % 4.5 %; Neutrophils # 4.89 10^3/uL (1.8-7.7); Neutrophils % 75.8 %; Nucleated Red Blood Cells % 0 %; Platelet Count 223 10^3/cmm (157-399); Red Blood Count 2.56 10^6/uL (3.85-5.65); Red Cell Distribution Width 15.3 % (12.1-15.1); Reticulocyte % 1.6 % (0.5-2.0); White Blood Count 6.45 10^3/uL (3.29-11.43)
[2024-10-14 11:32] LABS: Alanine Aminotransferase 20 U/L (0-33); Albumin Level 2.8 g/dL (3.5-5.2); Alkaline Phosphatase 147 U/L (35-105); Anion Gap 15.9 (5-19); Aspartate Amino Transferase 45 U/L (0-32); Blood Urea Nitrogen 10 mg/dL (6-20); Calcium 8.2 mg/dL (8.5-10.5); Carbon Dioxide 23 mmol/L (22-29); Chloride 101 mmol/L (98-107); Creatinine Clr Calc Pharmacy 19.9205; Ferritin 198 ng/mL (15-150); Globulin 2.9 g/dL (1.3-4.6); Glomerular Filtration Rate 36.8 mL/min (90-130); Glucose 97 mg/dL (65-115); Iron 58 ug/dL (37-145); Lactate Dehydrogenase 201 U/L (135-214); Magnesium 1.7 mg/dL (1.7-2.3); Osmolality Calculated 281 mOsm/kg (285-295); Percent Saturation 50.8 % (20-50); Potassium 3.9 mmol/L (3.5-5.1); Sodium 136 mmol/L (136-145); Total Bilirubin 0.3 mg/dL (0.15-1.2); Total Iron Binding Capacity 114 mcg/dl; Total Protein 5.7 g/dL (6.6-8.7); Unsaturated Iron Binding 56 ug/dL (112-347)
[2024-10-14 11:48] LABS: Vitamin B12 1332 pg/mL (232-1245)
--- NOTE | 2024-10-14 12:06 | N.ONRAD NP_ITS ---
Radiation Oncology New Patient Visit Patient: Nunu Mccoy MR#: [id number] : 1975 Age: 49 Sex: Female Dictated by: Dr. Francisco Vance Date of Service: 10/14/2024 Referring Physician(s) : Dr. 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 Now with bx proven left neck recurrence s/p FNA 09/20/2024. Left neck dissection is planned in [place] at [place] . We are asked to se her regarding post op radiation. Radiotherapy to date: Summary > No prior radiation therapy. Chief Complaint / History of Present Illness: She did well after primary resection 01/16/2023. 5 mm margin noted. See here by Dr. Gonzalez who recommended observation with no adjuvant radiation. She noted new asymptomatic mass in left neck over the last two months with minimal growth noted. FNA left neck mass 09/20/2024 positive for malignancy favoring squamous cell carcinoma PET/CT 09/24/2024 two left upper cervical lymph nodes and one left para-pharyngeal- skull base lymph node all hypermetabolic c/w metastatic disease involvement. No other sites of disease seen. .Able to swallow with no nasal reflux. Smoking ??? to 1 ppd. Drinks 3 beers a day. Previously anorexic and has stable diminished weight at 62 pounds. Weighed up to 115 pounds as a teenager. Recently had left mandibular teeth extracted 09/2024, right mandibular teeth to be extracted 11/23/2024. Plans to return to [place] for left neck dissection after extractions done. Mildly active at home. Not driving. Does ADL at home. Current Medications: albuterol sulfate 2.5 mg (3 mL) inhalation Q6H PRN albuterol sulfate 90 mcg/actuation (Ventolin HFA) 2 puffs inhalation Q6H PRN amiodarone 100 mg (1/2 x 200 mg) PO DAILY aspirin 81 mg PO BID atorvastatin (Lipitor) 10 mg PO DAILY chlorhexidine gluconate 0.12% 15 mL PO BID clonidine HCl TAKE ONE TABLET BY MOUTH TWICE DAILY NEEDED FOR HYPERTENSIVE EMERGENCY, USE SBP>160 OR DBP> 90 cranberry fruit concentrate (Azo Cranberry) 250 mg PO BEDTIME dapagliflozin propanediol (Farxiga) 10 mg PO DAILY famotidine 20 mg PO BID folic acid 1 mg PO DAILY furosemide 20 mg PO DAILY gabapentin 400 mg PO BID glycopyrrolate-formoterol 9-4.8 mcg (Bevespi Aerosphere) 2 puffs inhalation Q12H Lactobacillus rhamnosus GG (Probiotic Digestive Care) 20 billion cell PO .2 times day; melatonin 2.5 mg PO .HS metoprolol succinate ER 25 mg PO DAILY potassium 99 mg PO DAILY [TLSO back brace As directed] venlafaxine ER (Effexor XR) 75 mg PO DAILY Allergies: mirtazapine (From Remeron) Adverse Reaction (Severe, Verified 10/14/24 08:41) ADR-Nausea olanzapine (From Zyprexa) Adverse Reaction (Severe, Verified 10/14/24 08:41) ADR-Irritable Medical History: No history of collagen vascular disease. No previous radiation therapy. 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 COPD (chronic obstructive pulmonary disease) Alcohol dependence, daily use 1-2 beer daily Underweight Anorexia Essential (primary) hypertension Anxiety and depression Vitamin D deficiency Surgical History: History of throat surgery History of kyphoplasty History of esophagogastroduodenoscopy (EGD) (~2017) History of colonoscopy 2016 Family History: Mother Cancer Brother Heart disease CAD (coronary artery disease) Grandmother Diabetes CAD (coronary artery disease) Cancer Denies family history of Clotting disorder Dementia Chronic kidney disease (CKD) Suicide Anesthesia complication Bleeding disorder Lung disease Stroke Social History: Single never . Lives with step father. Chronically unemployed. Smoking and tobacco/nicotine status: current every day tobacco/nicotine user cigarettes Packs smoked per day: 1 Years cigarettes smoked: 30 Quit status (tobacco/nicotine): not considering quitting Second hand smoke exposure: Step father smokes Alcohol intake: current Alcohol intake frequency: 3 or more drinks per day Alcohol type: beer Substance/Drug Use: unknown Adopted: No Caregiver/support person: No Lives independently: Yes Household members: family Housing: House Marital status: Single service: No Current occupational status: unemployed Pets and animals: Yes Do you think of yourself as: Straight/Heterosexual Current gender identity: Female Current Complaints / Review of Systems: . Vital Signs: Performed on 10/14/2024 9:38 AM BMI - 10.642 kg/m2 (low), Height - 64 in, Weight - 62 lbs, Temperature - 97.4 f, Pulse - 83 /min, Respiration - 16 /min, O2 Sat - 98 %, Pain - 0, Fatigue - 0 and BP - 106/ 72 mm(hg). Physical Exam: Cachetic, with partial global alopecia. Looks much older than her age. Left 2 cm upper neck mass .Oral cavity soft palate resection site clear. No mucosal lesions seen. Right mandibular teeth broke off at gum line. No left mandibular teeth and no maxillary teeth present. Performance Status: ECOG PS 2 Pathology: see above Lab: none Imaging: See HPI Impression: Resected St I p 16 negative squamous cell carcinoma of soft palate now with biopsy proven left neck sea recurrence involving 3 nodes. If she is a surgical candidate then neck dissection followed by adjuvant radiation is a reasonable choice. If she is a high surgical risk then radiation alone is a good second choice for local control. Here severely diminished weight contraindicates combined chemo and radiation. We would plan to see her 3 to 4 weeks post op to assess her for the consideration of post op radiation. Discussed the critical need of smoking cessation with her and her step father. Plan: Signed by: 10/14/2024 12:04:39 PM <<Signature on File>> Time spent with patient: CPT Code: * CPT Code: *
[2024-10-14 12:36] LABS: Folate Level > 20.0 ng/mL (4.8-37.3)
--- NOTE | 2024-10-28 10:13 | XR_ITS ---
WS: [id number] Exam: XR thoracic spine 3V* [id number] Date/Time of Exam: 10/28/2024 10:14 AM Reason For Exam: M54.16 - Radiculopathy, lumbar region Comparison 11/18/2023. Stable appearing old compression fracture of T12 treated with vertebroplasty noted. There are also old compressions of T8 and T9 which are stable in appearance. Mild spondylosis. Osteopenia. Degenerative disc change at all levels. Increased kyphosis. XR/XR thoracic spine 3V* [id number] IMPRESSION: 1. Stable appearing old compression fractures of T12, T9 and T8. No acute fract ure seen. 2. Degenerative change, osteopenia and increased thoracic kyphosis.
--- NOTE | 2024-10-28 10:13 | XR_ITS ---
WS: [id number] Exam: XR lumbar spine 2-3V* [id number] Date/Time of Exam: 10/28/2024 10:14 AM Reason For Exam: M54.16 - Radiculopathy, lumbar region Comparison 03/15/2021. Low-grade compression fracture of the lower endplate of L5 noted. Age indeterminate. No obvious displacement. About 15% loss of vertebral height. No other fractures. Old mild compression deformity of the inferior endplate of L3. Biconcave old compression fracture of T12 treated with vertebroplasty. Add itional partially visualized compressions of the lower thoracic vertebra specifically T8 and T9 Are noted. Posterior elements are intact. Mild facet DJD. Osteopenia. Very slight levoscoliosis. XR/XR lumbar spine 2-3V* [id number] IMPRESSION: 1. Low-grade compression fracture of the inferior endplate of L5. About 15% los s of vertebral height. Fracture age is indeterminate but this could be recent. 2. Old compression deformities of the lower endplate of L3 and T12. T9 and T8 a lso demonstrate wedge deformities. 3. Degenerative change and marked osteopenia.
== END 2024-11-03 23:59 | disposition home or self-care (01) ==
PROVIDERS: Internal Medicine; PCP Nurse Practitioner; Visit Provider Nurse Practitioner
DX: D50.9 Iron deficiency anemia, unspecified (principal); M81.0 Age-related osteoporosis without current pathological fracture; F17.210 Nicotine dependence, cigarettes, uncomplicated; Z85.818 Personal history of malignant neoplasm of other sites of lip, oral cavity, and pharynx; C05.1 Malignant neoplasm of soft palate
CPT/HCPCS: 36415; 72072; 72100; 80053; 82607; 82728; 82746; 83010; 83540; 83550; 83615; 83735; 85025; 85045; 99205; 99213; 99214

== ENCOUNTER 2024-12-03 09:40 | Oncology outpatient (recurring) (ONCR) | payer MEDICARE, MEDICAID, SELFPAY ==
[2024-11-17 13:17] LABS: Basophils % 0.3 %; Eosinophils # 0.1 10^3/uL (0.0-0.8); Eosinophils % 2.2 %; Hematocrit 30.3 % (36-47); Lymphocytes # 1.6 10^3/uL (0.8-4.8); Lymphocytes % 26.8 %; Mean Corpuscular HGB Conc 33.7 g/dL (30-55); Mean Corpuscular Hemoglobin 31.3 pg (27-33); Mean Corpuscular Volume 92.9 fl (85-98); Mean Platelet Volume 9.7 fL (7.4-10.4); Monocytes # 0.4 10^3/uL (0.2-0.9); Monocytes % 6.9 %; Neutrophils # 3.67 10^3/uL (1.8-7.7); Neutrophils % 63.5 %; Nucleated Red Blood Cells % 0 %; Platelet Count 270 10^3/cmm (157-399); Red Blood Count 3.26 10^6/uL (3.85-5.65); Red Cell Distribution Width 17.2 % (12.1-15.1); White Blood Count 5.79 10^3/uL (3.29-11.43)
[2024-11-17 13:34] LABS: Alanine Aminotransferase 40 U/L (0-33); Albumin Level 3.1 g/dL (3.5-5.2); Alkaline Phosphatase 169 U/L (35-105); Anion Gap 18.3 (5-19); Aspartate Amino Transferase 86 U/L (0-32); Blood Urea Nitrogen 11 mg/dL (6-20); Calcium 8.2 mg/dL (8.5-10.5); Carbon Dioxide 24 mmol/L (22-29); Chloride 100 mmol/L (98-107); Creatinine Clr Calc Pharmacy 15.2273; Ferritin 242 ng/mL (15-150); Globulin 2.9 g/dL (1.3-4.6); Glucose 98 mg/dL (65-115); Iron 133 ug/dL (37-145); Osmolality Calculated 283 mOsm/kg (285-295); Percent Saturation 72.2 % (20-50); Potassium 5.3 mmol/L (3.5-5.1); Sodium 137 mmol/L (136-145); Total Bilirubin 0.2 mg/dL (0.15-1.2); Total Iron Binding Capacity 184 mcg/dl; Unsaturated Iron Binding 51 ug/dL (112-347)
--- NOTE | 2024-11-23 11:36 | ONCRAD TMN_ITS ---
Radiation Oncology Weekly Treatment Management Patient: Nunu Mccoy MR#: [id number] : 1975 Attending Physician: Dr. 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 ID: pPTV [id number], Energy: 6X, Dose/Fx (cGy): 200 #Fx: , Dose Correction (cGy): 0, Total Dose Delivered (cGy): 400, Start Date: 11/22/2024 Elapsed Days: 1 Reason for visit: The patient is being seen today as part of their regularly scheduled weekly on treatment visits to assess for acute toxicities from radiotherapy. Review of Systems: Eating ok. No sore throat. Still smoking ??? ppd Vital Signs: Performed on 11/23/2024 9:54 AM BMI - 10.333 kg/m2 (low), Height - 64 in, Weight - 60.2 lbs, Temperature - 96.9 f, Pulse - 93 /min, Respiration - 17 /min, O2 Sat - 100 %, Pain - 0, Fatigue - 0 and BP - 115/ 79 mm(hg). Physical Exam: omitted Imaging: Radiation therapy imaging related to accurate target localization (i.e. KV, MV and CBCT) was reviewed. Appropriate changes, if any, were made to ensure treatment accuracy. Plan: Good tolerance of treatment. Discussed critical need to quit smoking. Signed by: Dr. Francisco Vance 11/23/2024 11:34:39 AM
--- NOTE | 2024-11-30 10:18 | ONCRAD TMN_ITS ---
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 ID: pPTV [id number], Energy: 6X, Dose/Fx (cGy): 200, #Fx: , Dose Correction (cGy): 0, Total Dose Delivered (cGy): 1,200, Start Date: 11/22/2024, Elapsed Days: 8 Reason for visit: The patient is being seen today as part of their regularly scheduled weekly on treatment visits to assess for acute toxicities from radiotherapy. Review of Systems: Mild sore throat today but does not want any medication. Continues to smoke a half a pack per day. Cessation discussion was had. Weight 59 pounds and stable. Vital Signs: Performed on 11/30/2024 10:10 AM BMI - 10.23 kg/m2 (low), Height - 64 in, Weight - 59.6 lbs, Temperature - 97.1 f, Pulse - 88 /min, Respiration - 17 /min, O2 Sat - 100 %, Pain - 3, Fatigue - 0 and BP - 111/ 74 mm(hg). Physical Exam: AAOx3. Skin intact. Oral cavity exam clear Imaging: Radiation therapy imaging related to accurate target localization (i.e. KV, MV and CBCT) was reviewed. Appropriate changes, if any, were made to ensure treatment accuracy. Plan: Continue XRT Signed by: Ned Calhoun 11/30/2024 10:16:52 AM
== END 2024-12-04 23:59 | disposition home or self-care (01) ==
PROVIDERS: Nurse Practitioner Family; PCP Nurse Practitioner; Visit Provider Radiology Radiation Oncology
DX: Z51.0 Encounter for antineoplastic radiation therapy (principal); C06.9 Malignant neoplasm of mouth, unspecified; C77.0 Secondary and unspecified malignant neoplasm of lymph nodes of head, face and neck
CPT/HCPCS: 36415; 77300; 77301; 77334; 77336; 77338; 77386; 80053; 82728; 83540; 83550; 85025; 99024; 99214

== ENCOUNTER 2024-12-30 09:32 | Oncology outpatient (recurring) (ONCR) | payer MEDICARE, MEDICAID, SELFPAY ==
--- NOTE | 2024-12-07 10:08 | ONCRAD TMN_ITS ---
Radiation Oncology Weekly Treatment Management Patient: Nunu Mccoy MR#: [id number] : 1975 Attending Physician: Dr. 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 ID: pPTV 56, Energy: 6X, Dose/Fx (cGy): 200, #Fx: , Dose Correction (cGy): 0, Total Dose Delivered (cGy): 2,200, Start Date: 11/22/2024, Elapsed Days: 15 Reason for visit: The patient is being seen today as part of their regularly scheduled weekly on treatment visits to assess for acute toxicities from radiotherapy. Review of Systems: Having some mild tumor fever over the weekend. Patient gained 1 pound over the last week. She complains of itching in her throat but not painful. Left greater than the right Vital Signs: Performed on 12/07/2024 9:57 AM BMI - 10.402 kg/m2 (low), Height - 64 in, Weight - 60.6 lbs, Temperature - 97 f, Pulse - 79 /min, Respiration - 17 /min, O2 Sat - 100 %, Pain - 0, Fatigue - 0 and BP - 126/ 85 mm(hg). Physical Exam: AAOx3. Skin intact. Oral cavity exam shows erythema on the left side. No mucositis noted orally. Imaging: Radiation therapy imaging related to accurate target localization (i.e. KV, MV and CBCT) was reviewed. Appropriate changes, if any, were made to ensure treatment accuracy. Plan: Continue XRT. Signed by: Ned Calhoun 12/07/2024 10:06:35 AM
--- NOTE | 2024-12-14 10:14 | ONCRAD TMN_ITS ---
Radiation Oncology Weekly Treatment Management Patient: Darius Eddy> MR#: [id number] : 1975> Attending Physician: Dr. 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 ID: pPTV 56, Energy: 6X, Dose/Fx (cGy): 200, #Fx: , Dose Correction (cGy): 0, Total Dose Delivered (cGy): 3,000, Start Date: 11/22/2024, Elapsed Days: 22 Reason for visit: The patient is being seen today as part of their regularly scheduled weekly on treatment visits to assess for acute toxicities from radiotherapy. Review of Systems: Feels weak and has sore throat. Using Tylenol #3 which helps. Gargling with salt and soda. Works on puzzles at home. Still smoking ??? ppd. Vital Signs: Performed on 12/14/2024 9:53 AM BMI - 10.299 kg/m2 (low), Height - 64 in, Weight - 60 lbs, Temperature - 97.6 f, Pulse - 84 /min, Respiration - 17 /min, O2 Sat - 99 %, Pain - 5, Fatigue - 0 and BP - 100/ 78 mm(hg). Physical Exam: omitted Imaging: Radiation therapy imaging related to accurate target localization (i.e. KV, MV and CBCT) was reviewed. Appropriate changes, if any, were made to ensure treatment accuracy. Plan: Good tolerance of treatment. Add magic mouthwash. Transmitted to [facility]. Begged her to quit smoking. Signed by: Dr. Francisco Vance 12/14/2024 10:12:06 AM
--- NOTE | 2024-12-28 10:21 | ONCRAD TMN_ITS ---
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 ID: pPTV 56, Energy: 6X, Dose/Fx (cGy): 200, #Fx: 25 / 28, Dose Correction (cGy): 0, Total Dose Delivered (cGy): 5,000, Start Date: 11/22/2024, Elapsed Days: 36 Reason for visit: The patient is being seen today as part of their regularly scheduled weekly on treatment visits to assess for acute toxicities from radiotherapy. Review of Systems: Gained 1 pounds since last visit. She is going to start sherbet and Whey-protein. Refusing feeding tube again. We will recheck her weight on . Completes treatment on Friday and we will repeat visit with her in 2 weeks. She still smokes half a pack per day. Patient has no taste. Poor calorie intake Vital Signs: Performed on 12/28/2024 9:43 AM BMI - 10.436 kg/m2 (low), Height - 64 in, Weight - 60.8 lbs, Temperature - 96.6 f, Pulse - 2 /min (low), Respiration - 16 /min, O2 Sat - 100 %, Pain - 0, Fatigue - 0 and BP - 90/ 61 mm(hg)(/low). Physical Exam: AAO x3. Skin turgor adequate. Imaging: Radiation therapy imaging related to accurate target localization (i.e. KV, MV and CBCT) was reviewed. Appropriate changes, if any, were made to ensure treatment accuracy. Plan: Whey protein and sorbert. Re check WT on Compleetes XRT Friday RTC 2 weeks or sooner if need be. Signed by: Ned Calhoun 12/28/2024 10:20:07 AM
== END 2024-12-30 16:25 | disposition home or self-care (01) ==
PROVIDERS: PCP Nurse Practitioner; Visit Provider Radiology Radiation Oncology
DX: Z51.0 Encounter for antineoplastic radiation therapy (principal); C06.9 Malignant neoplasm of mouth, unspecified; C77.0 Secondary and unspecified malignant neoplasm of lymph nodes of head, face and neck
CPT/HCPCS: 77336; 77386; 80048; 99024

== ENCOUNTER 2024-12-31 09:37 | Oncology outpatient (recurring) (ONCR) | payer MEDICARE, MEDICAID, SELFPAY ==
--- NOTE | 2025-01-01 10:55 | N.ONRD TS_ITS ---
Radiation Oncology Treatment Summary Patient: Nunu Mccoy MR#: [id number] : 1975 Age: 49 Sex: Female Dictated by: Dr. 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 ID: pPTV 56, Energy: 6X, Dose/Fx (cGy): 200, #Fx: , Dose Correction (cGy): 0, Total Dose Delivered (cGy): 5,600, Start Date: 11/22/2024, End Date: 12/31/2024, Elapsed Days: 39 Clinical Summary: The patient tolerated RT OK. She still smokes half a pack per day. Patient has no taste. Poor calorie intake. Plan: End of treatment today. Continue on the above medication until the skin reaction resolves. Follow up in 2 weeks. Increase Calorie intake Signed by: Ned Calhoun>01/01/2025 10:54:29 AM <<Signature on File>>
== END 2025-01-03 23:59 | disposition home or self-care (01) ==
PROVIDERS: PCP Nurse Practitioner; Visit Provider Radiology Radiation Oncology
DX: Z51.0 Encounter for antineoplastic radiation therapy (principal); C06.9 Malignant neoplasm of mouth, unspecified; C77.0 Secondary and unspecified malignant neoplasm of lymph nodes of head, face and neck
CPT/HCPCS: 77336; 77386; 99024

== ENCOUNTER 2025-01-05 18:10 | Emergency (ER) | payer MEDICARE, MEDICAID, SELFPAY ==
[2025-01-05 18:19] VITALS: BP 130/82; PULSE 77; RESP 18; TEMP 36.9; O2SAT 100; BMI 10.4
--- OUTSIDE RECORDS SUMMARY | 2025-01-05 18:24 | XMS_ITS | Clinical Summary ---
Author Organization [facility] Address [address] [place] [address] Phone Care Team Providers Care Manager Of Engineering Name Role Phone Unavailable Primary Care Provider Unavailabl e Allergies No known active allergies Medications albuterol (PROVENTIL,VENTOL IN) 2.5 mg /3 mL (0.083 %) Solution for Nebulization Take 1 Vial by inhalation. Active alendronate (FOSAMAX) 70 mg tablet Take 1 Tablet by mouth. Active amiodarone (CORDARONE) 200 mg tablet Take 0.5 Tablets by mouth daily. Active atorvastatin (LIPITOR) 10 mg tablet Take 1 Tablet by mouth daily. Active calcium-cholecalc iferol (OS-PAMELA 500+D) 500 mg-5 mcg (200 unit) tablet Take 1 Tablet by mouth. Active carvediloL (COREG) 3.125 mg tablet Take 1 Tablet by mouth. Active Active Problems Problem Noted Date Diagnosed Date Bleeding from throat after biopsy 10/05/2022 Smoker 10/05/2022 GERD (gastroesophageal reflux disease) Alcohol dependence 10/05/2022 Anorexia nervosa with bulimia 10/05/2022 Protein-calorie malnutrition, severe 10/05/2022 Anxiety and depression 10/05/2022 CKD (chronic kidney disease) stage 3, GFR 30-59 ml/min 10/05/2022 COPD (chronic obstructive pulmonary disease) 07/2022 Dyslipidemia 10/05/2022 Essential hypertension 10/05/2022 Nonischemic cardiomyopathy 10/05/2022 Vitamin D deficiency 10/05/2022 Bleeding per rectum 10/05/2022 Acute blood loss anemia 10/05/2022 Encounters Date Type Department Care Team Description 01/04/2025 External Device Data [facility] Provider, Abstract 12/21/2024 External Device Data [facility] Provider, Abstract 11/25/2024 External Device Data [facility] Provider, Abstract 11/09/2024 External Device Data [facility] Provider, Abstract from Last 3 Months Family History Medical History Relation Name Comments Breast Cancer Mother Relation Name Status Comments Brother Alive Father Alive Mother Sister Alive Social History Tobacco Use Types Packs/Day Years Used Date Smoking Tobacco: Every Day Cigarettes 1.5 30 Tobacco Cessation:Ready to Q uit: No; Counseling Given: Not Answered Alcohol Use Standard Drinks/Week Comments Yes 3 (1 standard drink = 0.6 oz pur e alcohol) Feeling Safe Answer Date Recorded Are you in a relationship wi th someone who hurts you emotionally and/or physically? No 10/05/2022 Food Insecurity Answer Date Recorded Patient needs follow up regarding: Not on file 08/30/2023 Transportation Needs Answer Date Record ed Patient needs follow up regarding: Not on file 08/30/2023 Housing Stability Answer Date Recorded Patient needs follow up regarding: Not on file 08/30/2023 Utility Needs Answer Date Recorded Patient needs follow up regarding: Not on file 08/30/2023 Comments Unknown Sex and Gender Information Value Date Recorded Sex Assigned at Not on file Legal Sex Female 6:45 AM CDT Gender Identity Not on file Sexual Orientation Not on file Last Filed Vital Signs Vital Sign Reading Time Taken Comments Blood Pressure 134/92 10/07/2022 7:33 AM CDT Pulse 109 10/07/2022 7:33 AM CDT Temperature 36.2 C (97.2 F) 10/07/2022 7:33 AM CDT Respiratory Rate 18 10/07/2022 7:33 AM CDT Oxygen Saturation 100% 10/07/2022 7:33 AM CDT Inhaled Oxygen Concentration - - Weight 32 kg (70 lb 9.6 oz) 10/07/2022 6:33 AM C DT Height 172.7 cm (5' 8 ) 10/05/2022 2:44 PM CDT Body Mass Index 10.73 10/05/2022 2:44 PM CDT Plan of Treatment Health Maintenance Due Date Last Done Comments DTAP/TDAP/TD VACCINES (1 - Tdap) 1993 HEPATITIS B VACCINES (1 of 3 - 19+ 3-dose series) 09/04 HPV/Cotest (21-29) 09/17/1995 CERVICAL CANCER SCREENING 2004 HPV/Cotest (30-65) 2004 PAP SMEAR 2004 BREAST CANCER SCREENING 2014 COLORECTAL SCREENING 09/17/2019 Colorectal Cancer Screening 09/17/2019 FIT-DNA Q 3 years 09/17/2019 FIT/FOBT Q 1 year 09/17/2019 Flex Sig/CT Colonography Q 5 years 09/17/2019 INFLUENZA VACCINE (#1) 2024 ZOSTER VACCINE (1 of 2) 2024 Insurance MEDICAID [place] MEDICARE PART [place] AND B Advance Directives For more information, please contact: [phone] * Full Code (Latest Code Status on File) Date Activated Date Inactivated Comments 10/05/2022 5:09 PM 10/07/2022 5:32 PM
--- OUTSIDE RECORDS SUMMARY | 2025-01-05 18:24 | XMS_ITS | Encounter Summary ---
Author Organization [facility] Address [address] [place] [address] Care Team Providers Care Engineer Intern Name Role Phone Unavailable Primary Care Provider Unavailabl e Encounter Details Date Type Department Care Team (Late st Contact Info) Description 01/04/2025 External Device Data [facility] Provider, Abstract NO ADDRESS ON FILE Social History Tobacco Use Types Packs/Day Years Used Date Smoking Tobacco: Every Day Cigarettes 1.5 30 Alcohol Use Standard Drinks/Week Comments Yes 3 [...] on file Sexual Orientation Not on file documented as of this encounter Plan of Treatment Not on file documented as of this encounter Visit Diagnoses Not on filedocumented in this encounter
--- NOTE | 2025-01-05 18:26 | XRR_ITS ---
PROCEDURE INFORMATION: Exam: XR Right Shoulder Exam date and time: 01/05/2025 7:06 PM Age: 49 years old Clinical indication: Pain; Shoulder; Right; Additional info: Fall, pain TECHNIQUE: Imaging protocol: Radiologic exam of the right shoulder. Views: 2 or more views. COMPARISON: CR XR chest 2V* [id number] 07/11/2023 11:06 AM FINDINGS: Bones/joints: Comminuted fracture of the right humeral head and neck. Soft tissues: Normal. XR/XR shoulder RT min 2V* [id number] IMPRESSION: Comminuted fracture of the right humeral head and neck.
--- NOTE | 2025-01-05 18:27 | ED_ITS ---
HPI - Extremity Problem General: Chief complaint: Extremity Injury, Upper Stated complaint: fall. right arm inj Time Seen by Provider: 01/05/25 18:24 History of Present Illness: 49-year-old female who presents emergenc y room after a fall. She tripped and fell over a fan. She has severe right shoulder pain. No other injuries. No head injuries. No anticoagulation. No loss of consciousness. No altered mental status. No nausea or vomiting. Related Data Home Medications ?Medication ?Instructions ?Recorded ?Confirmed potassium 99 mg tablet 99 mg PO DAILY 08/16/20 0707/31 cranberry fruit concentrate 250 mg 250 mg PO BEDTIME 0 09/05/22 01/04/25 chewable tablet (Azo Cranberry) Previous Rx's ?Medication ?Instructions ?Recorded TLSO back brace #1 ea 06/07/21 Lactobacillus rhamnosus GG 20 See Rx Instructions PO . 2 times 05/28/23 billion cell capsule (Probiotic day #60 caps Digestive Care) clonidine HCl 0.1 mg tablet See Rx Instructions .Route 01/30/24 Held on 11/04/24. .COMPLEX #180 tabs Instructions: Holding by nephrology albuterol sulfate 2.5 mg/3 mL 2.5 mg (3 mL) inhalation Q6H PRN 02/17/24 (0.083 %) solution for nebulization shortness of breat h or wheezing #180 mL amiodarone 200 mg tablet 100 mg (1/2 x 200 mg) PO SUZE LY #45 09/03/24 tabs atorvastatin 10 mg tablet (Lipitor) 10 mg PO DAILY #90 tabs 10/04/24 chlorhexidine gluconate 0.12 % 15 ml PO BID #600 mL mouthwash famotidine 20 mg tablet 20 mg PO BID #180 tabs 10/04 folic acid 1 mg tablet 1 mg PO DAILY #90 tabs 10/04 furosemide 20 mg tablet 20 mg PO DAILY #90 tabs 09/06 07/31 acetaminophen 300 mg-codeine 30 mg 1 tab PO Q6H PRN pa in #120 tabs 10/28/24 tablet albuterol sulfate 90 mcg/actuation 2 puff inhalation Q 6H PRN 11/04/24 aerosol inhaler (Ventolin HFA) shortness of breath or wheezing #8.5 grams dapagliflozin propanediol 10 mg 10 mg PO DAILY #30 tab s 11/04/24 tablet (Farxiga) gabapentin 400 mg capsule 400 mg PO BID Pain #60 caps 11/04/24 glycopyrrolate 9 mcg-formoterol 2 puff inhalation Q12H #10.7 grams 11/04/24 4.8 mcg HFA aerosol inhaler (Bevespi Aerosphere) venlafaxine 150 mg 150 mg PO QAM #30 caps 11/04 capsule,extended release 24 hr (Effexor XR) lidocaine HCl 2 % mucosal solution 5 ml PO Q6H #100 mL 12/14/24 (Lidocaine Viscous) aspirin 81 mg tablet,delayed 81 mg PO BID #180 tabs release metoprolol succinate 25 mg See Rx Instructions .Route 12/27/24 tablet,extended release 24 hr .COMPLEX #90 tabs hydrocodone 5 mg-acetaminophen 325 1 tab PO Q6H PRN pa in #20 tabs 01/05/25 mg tablet polyethylene glycol 3350 17 17 g PO DAILY #510 grams 0 01/05/25 gram/dose oral powder (Miralax) Allergies Allergy/AdvReac Type Severity Reaction Status Date / Time mirtazapine (From Remeron) AdvReac Severe ADR-Nausea Verified 01/04/25 16:34 olanzapine (From Zyprexa) AdvReac Severe ADR-Irritab Verified 01/04/25 16:34 le Review of Systems Narrative: Constitutional symptoms: Negative except as documented in HPI. Skin symptoms: Negative except as documented in HPI. Eye symptoms: Negative except as documented in HPI. ENMT symptoms: Negative except as documented in HPI. Respiratory symptoms: Negative except as documented in HPI. Cardiovascular symptoms: Negative except as documented in HPI. Gastrointestinal symptoms: Negative except as documented in HPI. Genitourinary symptoms: Negative except as documented in HPI. Musculoskeletal symptoms: Negative except as documented in HPI. Neurologic symptoms: Negative except as documented in HPI. Psychiatric symptoms: Negative except as documented in HPI. Endocrine symptoms: Negative except as documented in HPI. 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 COPD (chronic obstructive pulmonary disease) Alcohol dependence, daily use 1-2 beer daily Underweight Anorexia Essential (primary) hypertension Anxiety and depression Vitamin D deficiency Surgical History History of throat surgery History of kyphoplasty History of esophagogastroduodenoscopy (EGD) (~2016) History of colonoscopy 2016 Family History Mother Cancer Brother Heart disease CAD (coronary artery disease) Grandmother Diabetes CAD (coronary artery disease) Cancer Denies family history of Clotting disorder Dementia Chronic kidney disease (CKD) Suicide Anesthesia complication Bleeding disorder Lung disease Stroke Social History Smoking and tobacco/nicotine status: current every day tobacco/nicotine user cigarettes Packs smoked per day: 1 Years cigarettes smoked: 30 Quit status (tobacco/nicotine): not considering quitting Second hand smoke exposure: No Alcohol intake: current Alcohol intake frequency: 3 or more drinks per day Alcohol type: beer Substance/Drug Use: unknown Adopted: No Caregiver/support person: No Lives independently: Yes Household members: family Housing: House Marital status: Single service: No Current occupational status: unemployed Pets and animals: Yes Do you think of yourself as: Straight/Heterosexual Current gender identity: Female Physical Exam Narrative: EXAM NARRATIVE: General: Alert, no acute distress. Skin: Warm, dry. Head: Normocephalic, atraumatic. Neck: Supple, trachea midline. Eye: Extraocular movements are intact. Ears, nose, mouth and throat: mucosa moist. Cardiovascular: Regular, Normal peripheral perfusion. Respiratory: Lungs are clear to auscultation, respirations are non-labored, breath sounds are equal, Symmetrical chest wall expansion. Gastrointestinal: Soft, Nontender, Non distended Musculoskeletal: Extremely tender in the right shoulder. Limited range of motion. No obvious deformity. Neurological: Alert and oriented, No focal neurological deficit observed. Psychiatric: Cooperative, appropriate mood & affect. Course Vital Signs: Vital signs: Vital Signs Temperature 98.4 F 01/05/25 18:19 Pulse Rate 84 01/05/25 20:07 Respiratory Rate 18 01/05/25 20:07 Blood Pressure 158/99 01/05/25 20:07 Pulse Oximetry 100 01/05/25 20:07 Oxygen Delivery Me thod Room Air 01/05/25 18:19 MDM - Extremity (Nontraumatic) Medical Decision Making Medical decision making: Differential diagnosis including but not limited to and based on the above HPI, review of systems and physical exam: In this patient with traumatic shoulder injury would have concern for fracture, dislocation or rotator cuff injury. Or even strain. Orders placed to evaluate differential diagnosis based on the above differential, HPI and physical exam X-ray of the right shoulder shows a slightly impacted proximal humerus fracture. Films were interpreted by myself the emergency room provider and pending final radiology review. Reexamination: Patient remained stable. No increased work of breathing. No altered mental status. No focal motor deficits. Sling was placed. We discussed keeping it on and sleeping upright. Consultation: I spoke with Dr. Guzmán who is on-call for orthopedics. He recommends sling and follow-up in clinic in 1 week. Assessment and plan: Proximal humerus fracture ? [place] in the emergency room. Sling placed. - Discharged home - Discussed plan with patient. Answered any questions. - Evaluation and treatment of this problem were appropriate in the emergency setting. XR interpretation done by ED provider, pending radiology final review Discharge Plan Discharge Patient Disposition: Home Clinical Impression: Fracture of shoulder Condition: Stable Prescriptions: New hydrocodone-acetaminophen 5-325 mg tablet 1 tab PO Q6H PRN (Reason: pain) Qty: 20 0RF polyethylene glycol 3350 [Miralax] 17 gram/dose powder 17 g PO DAILY Qty: 510 0RF Rx Instructions: Take 1 scoop daily while taking pain medications. No Action Azo Cranberry 250 mg tablet,chewable 250 mg PO BEDTIME Probiotic Digestive Care 20 billion cell capsule See Rx Instructions PO .2 times day Qty: 60 2RF Rx Instructions: 20 billion cell PO .2 times day; venlafaxine [Effexor XR] 150 mg capsule,extended release 24hr 150 mg PO QAM Qty: 30 2RF albuterol sulfate [Ventolin HFA] 90 mcg/actuation HFA aerosol inhaler 2 puff inhalation Q6H PRN (Reason: shortness of breath or wheezing) Qty: 8.5 2RF Farxiga 10 mg tablet 10 mg PO DAILY Qty: 30 2RF gabapentin 400 mg capsule 400 mg PO BID Qty: 60 2RF Bevespi Aerosphere 9-4.8 mcg HFA aerosol inhaler 2 puff inhalation Q12H Qty: 10.7 2RF albuterol sulfate 2.5 mg /3 mL (0.083 %) solution for nebulization 2.5 mg INHALATION Q6H PRN (Reason: shortness of breath or wheezing) Qty: 180 0RF furosemide 20 mg tablet 20 mg PO DAILY Qty: 90 2RF folic acid 1 mg tablet 1 mg PO DAILY Qty: 90 1RF famotidine 20 mg tablet 20 mg PO BID Qty: 180 1RF chlorhexidine gluconate 0.12 % mouthwash 15 ml PO BID Qty: 600 2RF atorvastatin [Lipitor] 10 mg tablet 10 mg PO DAILY Qty: 90 1RF (DME) TLSO back brace See Rx Instructions .Route .MEDSUPPLY Qty: 1 0RF Rx Instructions: As directed clonidine HCl 0.1 mg tablet See Rx Instructions .ROUTE .COMPLEX Qty: 180 2RF Dose Instruction: TAKE ONE TABLET BY MOUTH TWICE DAILY NEEDED FOR HYPERTENSIVE EMERGENCY, USE SBP>160 OR DBP> 90 Rx Instructions: TAKE ONE TABLET BY MOUTH TWICE DAILY NEEDED FOR HYPERTENSIVE EMERGENCY, USE SBP>160 OR DBP> 90 amiodarone 200 mg tablet 100 mg PO DAILY Qty: 45 3RF acetaminophen-codeine 300-30 mg tablet 1 tab PO Q6H PRN (Reason: pain) Qty: 120 0RF lidocaine HCl [Lidocaine Viscous] 2 % solution 5 ml PO Q6H Qty: 100 0RF Rx Instructions: 5 mL orally every 6 hours; Mix in equal volume with 100ml of antacid and 100 ml Benadryl elixir. aspirin 81 mg tablet,delayed release (DR/EC) 81 mg PO BID Qty: 180 0RF metoprolol succinate 25 mg tablet extended release 24 hr See Rx Instructions .ROUTE .COMPLEX Qty: 90 3RF Dose Instruction: TAKE ONE TABLET BY MOUTH DAILY Rx Instructions: TAKE ONE TABLET BY MOUTH DAILY potassium 99 mg Tablet 99 mg PO DAILY Discharge Orders: Discharge ED (Routine); Ordered 01/05/25 Ordered By: Comfort Noe Referrals: Yudy Lozoya, CARLIC [Primary Care Provider, Family Practice] Remy Guzmán MD [Physician, Orthopedics] - 1 week Referral Note: Please call for a follow-up appointment Discharge Diet: As Directed Discharge Activity: Limit activity as instructed Patient Instructions: Opioid Safety, Pain Management, Patient Portal & [place] Instructions Activity Restrictions/Additional Instructions: Keep arm in sling at all times. Use gravity to keep traction on the arm. Sleep in a recliner slightly reclined and not flat. Thank you for choosing [facility] for your healthcare needs today. You have been screened and evaluated and felt safe for discharge. Health conditions do change or evolve sometimes and as such it is important that you follow up with your Primary Doctor to be re checked, 3-5 days is a general good time frame for follow up. You are always welcome to return to the ED for re assessment if your symptoms are worsening or you have new concerns Print Language: Belarusian Coding Level of Care Code ED Surgical Device Sales Representative for Mercedes Short
[2025-01-05] MEDS: HYDROcodone-acetaminophen 5-325 mg Tablet 1 TAB PO (18:53)
[2025-01-05] MEDS: HYDROcodone-acetaminophen 5-325 mg Tablet 2 TAB PO (19:55)
[2025-01-05 20:07] VITALS: BP 158/99; PULSE 84; RESP 18; O2SAT 100
== END 2025-01-05 20:07 | disposition home or self-care (01) ==
PROVIDERS: Emergency Provider Emergency Medicine; PCP Nurse Practitioner
DX: S42.201A Unspecified fracture of upper end of right humerus, initial encounter for closed fracture (principal); Z79.82 Long term (current) use of aspirin; F17.210 Nicotine dependence, cigarettes, uncomplicated; J44.9 Chronic obstructive pulmonary disease, unspecified; E78.5 Hyperlipidemia, unspecified; I12.9 Hypertensive chronic kidney disease with stage 1 through stage 4 chronic kidney disease, or unspecified chronic kidney disease; N18.30 Chronic kidney disease, stage 3 unspecified
CPT/HCPCS: 73030; 99283; J9999

== ENCOUNTER → 2025-01-17 10:30 | Outpatient (BNVA) | payer MEDICARE, MEDICAID, SELFPAY | PROVIDERS: PCP Nurse Practitioner; Visit Provider Orthopaedic Surgery | DX: S42.291A Other displaced fracture of upper end of right humerus, initial encounter for closed fracture (principal); W01.0XXA Fall on same level from slipping, tripping and stumbling without subsequent striking against object, initial encounter; M25.521 Pain in right elbow | CPT/HCPCS: 73030; 73080; 99204 ==

== ENCOUNTER → 2025-01-18 11:28 | Outpatient (BNVA) | payer MEDICARE, MEDICAID, SELFPAY | PROVIDERS: PCP Nurse Practitioner; Visit Provider Internal Medicine Cardiovascular Disease | DX: I48.20 Chronic atrial fibrillation, unspecified (principal); Z79.82 Long term (current) use of aspirin; I42.8 Other cardiomyopathies; E78.5 Hyperlipidemia, unspecified; J44.9 Chronic obstructive pulmonary disease, unspecified; I11.0 Hypertensive heart disease with heart failure; I50.32 Chronic diastolic (congestive) heart failure; F17.210 Nicotine dependence, cigarettes, uncomplicated; Z79.899 Other long term (current) drug therapy | CPT/HCPCS: 99214 ==

== ENCOUNTER 2025-01-26 12:21 | Outpatient (CLI) | payer MEDICARE, MEDICAID, SELFPAY ==
--- NOTE | 2025-01-26 12:38 | CT_ITS ---
WS: [id number] CT NECK WITH CONTRAST HISTORY: MALIGNANT NEOPLASM OF HEAD,FACE, NECK TECHNIQUE: Contiguous 2 mm axial images are performed through the neck with intravenous contrast. Sagittal and coronal reformats are also submitted. All CT scans at [facility] use at least one of these dose optimization techniques: automated exposure control; mA and/or kV adjustment per patient size (includes targeted exams where dose is matched to clinical indication); or iterative reconstruction. CONTRAST: CONTRAST: Omnipaque 350; 100 mL IV. DLP: 128.58 mGy.cm COMPARISON: CT 09/15/2024, 01/06/2024, PET/CT 09/24/2024 Subtle area of enhancement involving the RIGHT tongue base extending into the lingual tonsil. Area of enhancement measures approximately 7 x 8 mm. This was not definitely visualized on the prior CT from 09/15/2024. Remaining tongue base and the larynx and epiglottis appear normal. Torus tubarius and fossa of Rosenmuller and parapharyngeal fat are normal. Reidentified are the mildly hyperemic lymph nodes at level 1B on the LEFT. These lymph nodes are smaller in size compared to the prior study. There is an additional hypervascular lymph node measuring 9 mm involving the RIGHT level 1B location that does appear slightly more hyperemic. No level II or level III lymph nodes identified of any concern. Complex cystic solid mass along the RIGHT cervical chain described on the prior study is no longer present. Visualized parotid and submandibular glands are negative. Negative thyroid. RIGHT tracheal diverticulum reidentified. Increase in cervical lordosis. No destructive bone lesions. Visualized portions of the skull base demonstrate no abnormalities. Orbits and globes are within normal limits. No soft tissue masses. Visualized paranasal sinuses and mastoid air cells are normal. Emphysematous changes at the lung apices. CT/CT neck w con* [id number] IMPRESSION: 1. There is a very subtle area of enhancement which is new involving the RIGHT tongue base and the lingual tonsil. Consider evaluation by direct visualizatio n. 2. Previously described complex cystic solid mass in the LEFT neck has resolve d since 09/15/2024. 3. Slight decrease in size of the hypervascular level 3B lymph nodes that were also noted on 09/15/2024. 4. Slight enlargement of a hypervascular level 1B lymph node on the RIGHT. Met astatic involvement not excluded. Follow-up PET/CT imaging may be of benefit.
[2025-01-26] MEDS: iohexol 350 mg/mL 500 mL Btl (per mL) IV (13:08)
== END 2025-01-26 12:22 | disposition home or self-care (01) ==
LOC: RAD 12:23
PROVIDERS: PCP Nurse Practitioner; Visit Provider Specialist
DX: C76.0 Malignant neoplasm of head, face and neck (principal)
CPT/HCPCS: 70491

== ENCOUNTER → 2025-02-03 10:32 | Outpatient (BNVA) | payer MEDICARE, MEDICAID, SELFPAY | PROVIDERS: PCP Nurse Practitioner; Visit Provider Orthopaedic Surgery | DX: S42.291A Other displaced fracture of upper end of right humerus, initial encounter for closed fracture (principal); X58.XXXA Exposure to other specified factors, initial encounter | CPT/HCPCS: 73030; 99213 ==

== ENCOUNTER → 2025-02-22 08:58 | Outpatient (BNVA) | payer MEDICARE, MEDICAID, SELFPAY | PROVIDERS: PCP Nurse Practitioner; Visit Provider Nurse Practitioner | DX: N18.32 Chronic kidney disease, stage 3b (principal) | CPT/HCPCS: 80069; 82043; 82310; 83970; 85007; 85027 ==

== ENCOUNTER → 2025-03-10 10:45 | Outpatient (BNVA) | payer MEDICARE, MEDICAID, SELFPAY | PROVIDERS: PCP Nurse Practitioner; Visit Provider Orthopaedic Surgery | DX: M25.511 Pain in right shoulder (principal); S42.291A Other displaced fracture of upper end of right humerus, initial encounter for closed fracture; X58.XXXA Exposure to other specified factors, initial encounter | CPT/HCPCS: 73030; 99213 ==

== ENCOUNTER 2025-04-22 10:00 | Oncology outpatient (recurring) (ONCR) | payer MEDICARE, MEDICAID, SELFPAY ==
--- NOTE | 2025-04-07 09:21 | ONCRAD EPV_ITS ---
Radiation Oncology Established Patient Visit Patient: Nunu Mccoy [id number] : 1975 Age: 49 Sex: Female Dictated by: Dr. 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 ID: [id number], Energy: 6X, Dose/Fx (cGy): 200, #Fx: , Dose Correction (cGy): 0, Total Dose Delivered (cGy): 5,600, Start Date: 11/22/2024, End Date: 12/31/2024, Elapsed Days: 39 Current History: Patient is now on approximately 3 months out from completion of treatment. Just 3 days after she completed treatment she fell and broke her right shoulder. Since her last visit 2 months ago she has actually had improvement in her swallowing. She is using [place] instant breakfast and a lactose-free milk. She is starting to try and eat more solid foods but does have difficulty still. She feels like her energy levels come back quite nicely. Her weight has actually gone down another 5 pounds in the intervening 2 months. Current Medications: Albuterol Sulfate, amiodarone HCl, anoro Ellipta, aspirin, atorvastatin Calcium, b-12, calcium 500 + D, carvedilol, chlorhexidine Gluconate, cloNIDine HCl, cranberry, dapagliflozin Propanediol, famotidine, fluticasone Propionate HFA, folic Acid, furosemide, gabapentin, levalbuterol Tartrate, liothyronine Sodium, melatonin, potassium, probiotic Digestive Support, traMADol HCl, venlafaxine HCl ER. Allergies: Current Complaints / Review of Systems: . Vital Signs: Performed on 04/07/2025 8:56 AM BMI - 10.368 kg/m2 (low), Height - 64 in, Weight - 60.4 lbs, Temperature - 96.7 f, Pulse - 105 /min (high), Respiration - 17 /min, O2 Sat - 100 %, Pain - 0, Fatigue - 0 and BP - 100/ 65 mm(hg). Physical Exam: General: Alert and oriented x 3. No acute distress. HEENT: Normocephalic, atraumatic. Extraocular Movements Intact: Pupils Equal, Round, Reactive to Light and Accommodation: Sclerae anicteric. Oral cavity is clear without lesions, masses or ulcers. Postop changes noted NECK: Supple without supraclavicular or jugular lymphadenopathy. LUNGS: Respiratory rate regular nonlabored. HEART: Regular rate and rhythm, . ABDOMEN: Patient is quite cachectic with no adipose tissue EXTREMITIES: No peripheral edema is identifie NEUROLOGIC: Alert and orient x 3. Gait and speech within normal limits. Performance Status: 80 Lab: None pending. Pathology: Primary, c06.9 - malignant neoplasm of mouth, unspecified, Diagnosed 11/22/2024 (active) and Primary, c77.0 - secondary and unspecified malignant neoplasm of lymph nodes of head, face and neck, Diagnosed 11/22/2024 (active) . 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 She will see Dr. Ott in a few weeks for evaluation. 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 I wrote down some different options for her to think about adding. I like to see if we can get her weight at least stable. She otherwise is feeling better and that is encouraging. She is seeing orthopedics here shortly about her shoulder. Will see her back in 6 months or sooner as needed Signed by: 04/07/2025 9:19:55 AM <<Signature on File>> Time spent with patient: 30 CPT Code: CPT Code:
--- NOTE | 2025-04-22 14:00 | PETR_ITS ---
PROCEDURE INFORMATION: Exam: PET/CT Skull Base to Mid-thigh Exam date and time: 04/22/2025 11:17 AM Age: 49 years old Clinical indication: Condition or disease; Primary cancer: Malignant neoplasm of tonsil; Prior surgery; Surgery date: 6+ months; Surgery type: Throat; Additional info: Fu after or and xrt LABS AND CLINICAL REPORTS: Glucose: 123 mg/dl Treatment strategy for malignancy (PET staging): Restaging (PS) TECHNIQUE: Imaging protocol: Following at least four-hour fasting and following the injection of radiopharmaceutical, low dose CT images were obtained. Then, PET images were obtained. Attenuation corrected images were constructed using the CT scan. Fused images of PET and CT were reviewed. The standardized uptake values (SUV) reported below are maximum values within a region of interest, expressed in gm/ml. Exam includes orbital meatal line to mid-thigh. SUV normalization method: BodyWeight Radiopharmaceutical: 9.22 mCi F-18 FDG (Fluorodeoxyglucose), IV. Time of imaging post radiopharmaceutical administration: 50 minutes Injection site: LEFT AC COMPARISON: CT chest 01/26/2025, PET-CT 09/24/2024 FINDINGS: Brain: Visualized brain has normal physiologic uptake. Pharynx: No abnormal uptake. Larynx: No abnormal uptake. Lungs, pleura and trachea: No abnormal uptake. A left lower lobe calcified granuloma is present. Heart: Normal physiologic uptake. Mediastinal space: No abnormal uptake. Esophagus: Diffuse uptake in the mid to distal esophagus is present, SUV max 4.8 on image 157, without well-defined wall thickening or mass on the CT images. Liver: No abnormal uptake. Gallbladder and biliary ducts: No abnormal uptake. Pancreas: No abnormal uptake. Spleen: No abnormal uptake. Calcified granulomas in the spleen are identified. Adrenal glands: No abnormal uptake. Kidneys and ureters: Normal physiologic uptake. Stomach and bowel: No abnormal uptake. Vasculature: No abnormal uptake. Multifocal regions of atherosclerotic calcification are identified. Lymph nodes: No abnormal uptake. No lymphadenopathy in the head, neck, chest, abdomen, pelvis, and extremities. Benign-appearing calcified mediastinal and left hilar lymph nodes are identified. Skeleton: Elevated uptake in the anterior right 6th rib is new, SUV max 3.6 on PET series 301, image 163. This uptake corresponds to a mildly displaced fracture near the costochondral junction, which is new since the prior PET-CT. No additional areas of elevated uptake are identified in the osseous structures. A healed fracture of the left inferior pubic ramus is identified. Bilateral healed proximal humeral fractures are noted. Vertebroplasty cement in the T12 vertebral body is noted. An old appearing moderate to severe T9 vertebral body wedge compression fracture is noted, and there is a [id number] compression fracture of the T8 vertebral body. Soft tissues: Surgical clips in the bilateral neck are noted. METRICS: Mediastinal blood pool: SUV max 2.0, SUV mean 1.9 Liver uptake: SUV max 2.1, SUV mean 2.1 PET/PET skull to thigh SUBS [id number] IMPRESSION: 1. A new focus of uptake is identified in a mildly displaced fracture of the anterior right 6th rib, which is new compared to the prior PET-CT. This may be posttraumatic in nature. Uptake related to a pathologic fracture in a region of metastatic disease is less likely but not excluded. Correlation with clinical history is recommended. 2. Uptake in the mid to distal esophagus is noted, which may be physiologic or inflammatory/related to esophagitis. A malignant etiology is less likely. 3. Additional nonurgent findings as detailed above. COMMENTS: The patient weight utilized for SUV calculation of approximally 61 lb/27.7 kg was verified from the technologist worksheet.
== END 2025-05-06 23:59 | disposition home or self-care (01) ==
LOC: ONCMED 04-25 09:53
PROVIDERS: PCP Nurse Practitioner; Visit Provider Radiology Radiation Oncology
DX: Z53.9 Procedure and treatment not carried out, unspecified reason; C09.9 Malignant neoplasm of tonsil, unspecified; M84.48XA Pathological fracture, other site, initial encounter for fracture
CPT/HCPCS: 78815; 99213; 99214; A9552

== ENCOUNTER → 2025-05-11 14:12 | Outpatient (BNVA) | payer MEDICARE, MEDICAID, SELFPAY | PROVIDERS: PCP Nurse Practitioner; Visit Provider Nurse Practitioner | DX: K22.9 Disease of esophagus, unspecified (principal); N18.32 Chronic kidney disease, stage 3b | CPT/HCPCS: 82043 ==

== ENCOUNTER → 2025-05-18 10:45 | Outpatient (BNVA) | payer MEDICARE, MEDICAID, SELFPAY | PROVIDERS: PCP Nurse Practitioner; Visit Provider Nurse Practitioner | DX: I48.20 Chronic atrial fibrillation, unspecified (principal); K22.9 Disease of esophagus, unspecified; N18.32 Chronic kidney disease, stage 3b; N18.9 Chronic kidney disease, unspecified; E03.9 Hypothyroidism, unspecified; E55.9 Vitamin D deficiency, unspecified | CPT/HCPCS: 80053; 80069; 82306; 82310; 83970; 84439; 84443; 85025 ==

== ENCOUNTER 2025-06-08 08:26 | Outpatient (CLI) | payer MEDICARE, MEDICAID, SELFPAY ==
--- NOTE | 2025-06-08 08:47 | FL_ITS ---
WS: [id number] Exam: FL barium swallow [id number] Date/Time of Exam: 06/08/2025 8:53 AM Reason For Exam: DZ OF ESOPHAGUS/MALIGNANT NEOPLASM OF SOFT PALATE Fluoroscopy time: 1min [id number] minutes # of spot films: Compared to prior study 03/15/2024. Oral pharyngeal phase of swallowing was normal. There is posterior extrinsic compression upon the cervical esophagus at the C4-5 level which appears to be due to mild spondylosis and possibly thickening of the anterior longitudinal ligament. This is slightly more pronounced than noted on the prior study. This causes about 50% luminal narrowing. There were no other esophageal strictures identified. Motility was otherwise grossly normal. No hiatal hernia was seen. No reflux observed. Postop changes in the neck with multiple surgical clips. FL/FL barium swallow [id number] IMPRESSION: 1. Posterior extrinsic compression upon the cervical esophagus at about the C4- 5 level most likely due to spondylosis and possibly ligamentous thickening. Thi s is somewhat more pronounced than noted on the prior study. This appears to ca use about 50% luminal narrowing of the cervical esophagus at this point. 2. No other sign of esophageal stricture, intrinsic mass or motility disorder.
--- NOTE | 2025-06-08 08:47 | CTR_ITS ---
PROCEDURE INFORMATION: Exam: CT Chest With Contrast; Diagnostic Exam date and time: 06/08/2025 8:44 AM Age: 49 years old Clinical indication: Abnormal findings; Abnormal radiologic exam of lung or chest; HX of throat cancer; Additional info: Left lower lobe granuloma present TECHNIQUE: Imaging protocol: Diagnostic computed tomography of the chest with contrast. Radiation optimization: All CT scans at this facility use at least one of these dose optimization techniques: automated exposure control; mA and/or kV adjustment per patient size (includes targeted exams where dose is matched to clinical indication); or iterative reconstruction. Contrast material: OMNI 350; Contrast volume: 65 ml; Contrast route: INTRAVENOUS (IV); COMPARISON: PT PET skull to thigh [id number] [id number] 04/22/2025 11:17 AM RADIATION DOSE METRICS: Total DLP (mGy-cm): 194.19 FINDINGS: Trachea: Patent central airways. 1.1 cm posterior upper tracheal diverticulum. Lungs: Calcified granuloma left lower lobe. Otherwise clear lungs. Pleural spaces: No pneumothorax or pleural effusion. Heart: Heart size is normal. No pericardial effusion. Coronary arteries: Coronary artery calcification. Esophagus: Esophagus is unremarkable. Lymph nodes: Calcified subcarinal and left hilar lymph nodes suggestive of prior granulomatous inflammation. Vasculature: Unremarkable. No aortic aneurysm. Liver: Diffuse hepatic steatosis. Spleen: Numerous punctate splenic calcifications. Kidneys: 0.7 cm left renal cyst. Bones/joints: Chronic fracture right anterolateral 6th rib. Chronic compression deformities in the lower thoracic spine. T12 kyphoplasty. Soft tissues: Unremarkable. CT/CT chest w con* [id number] IMPRESSION: Redemonstrated calcified granuloma in the left lower lobe. Otherwise clear lungs. COMMENTS: Consistent with the [employer]'s Incidental Findings Committee white paper (J Am April Radiol 2018): Any incidental renal lesion less than 1 cm or classified as too small to characterize, or any incidental cystic renal lesion characterized as simple-appearing, is likely benign. No follow-up imaging is recommended for these lesions per consensus recommendations based on imaging criteria.
[2025-06-08] MEDS: iohexol 350 mg/mL 500 mL Btl (per mL) IV (08:52)
== END 2025-06-08 08:27 | disposition home or self-care (01) ==
LOC: RAD 08:28
PROVIDERS: PCP Nurse Practitioner; Visit Provider Specialist
DX: R91.8 Other nonspecific abnormal finding of lung field (principal); Z85.818 Personal history of malignant neoplasm of other sites of lip, oral cavity, and pharynx; K22.9 Disease of esophagus, unspecified; J84.10 Pulmonary fibrosis, unspecified; I25.10 Atherosclerotic heart disease of native coronary artery without angina pectoris; R59.0 Localized enlarged lymph nodes; K76.0 Fatty (change of) liver, not elsewhere classified; D73.89 Other diseases of spleen; N28.1 Cyst of kidney, acquired; M84.48XS Pathological fracture, other site, sequela; X58.XXXS Exposure to other specified factors, sequela
CPT/HCPCS: 71260; 74220

== ENCOUNTER 2025-06-16 09:37 | Outpatient (CLI) | payer MEDICARE, MEDICAID, SELFPAY ==
--- NOTE | 2025-06-16 | FL_ITS ---
FL barium swallow modifd [id number] REASON FOR EXAM: Other dysphagia FLUOROSCOPY TIME: 2min [id number] # OF SPOT FILMS: None TECHNIQUE: Examination was supervised by the speech therapy department. Patient was examined in the sitting upright lateral projection. The swallowing of barium of varying consistencies was monitored fluoroscopically and video recorded. FINDINGS: No aspiration. Penetration of the laryngeal vestibule with thin liquid contrast. No impedance to the transit of the barium tablet through the thoracic esophagus and into the stomach. IMPRESSION: No aspiration. Mild laryngeal vestibule penetration of thin liquid contrast. A detailed report of the swallowing will be rendered by the speech therapy department. No esophageal obstruction. MTDD
== END 2025-06-16 09:38 | disposition home or self-care (01) ==
LOC: RAD 09:39
PROVIDERS: PCP Nurse Practitioner; Visit Provider Specialist
DX: K22.9 Disease of esophagus, unspecified (principal); C05.1 Malignant neoplasm of soft palate; R93.89 Abnormal findings on diagnostic imaging of other specified body structures
CPT/HCPCS: 74230; 92611